=== PATIENT | female | born 1950 | race Caucasian/White ===

== ENCOUNTER 2016-11-20 16:08 | Emergency (ER) | payer MEDICARE ==
[2016-11-20 16:11] VITALS: BP 126/69; PULSE 92; RESP 18; TEMP 97.5
[2016-11-20] MEDS ORDERED: MORPHINE SULFATE 10 MG/ML SYRINGE IM STA (16:34)
--- NOTE | 2016-11-20 17:13 | XR ---
EXAMINATION TYPE: XR forearm LT DATE OF EXAM: 11/20/2016 COMPARISON: NONE HISTORY: Pain and injury TECHNIQUE: 2 views FINDINGS: There is focal soft tissue swelling on the lateral aspect of the midforearm. Radius and uln a appear intact. I see no fracture. IMPRESSION: Soft tissue swelling. No fracture seen.
--- NOTE | 2016-11-20 17:14 | XR ---
EXAMINATION TYPE: XR knee complete LT DATE OF EXAM: 11/20/2016 COMPARISON: NONE HISTORY: Pain and injury TECHNIQUE: 3 views FINDINGS: I see no fracture nor dislocation. Joint spaces are normal. There is no sign of a joint eff usion. IMPRESSION: Negative left knee exam.
--- NOTE | 2016-11-20 17:46 | ED ---
Fall HPI - General Chief Complaint: Fall Stated Complaint: Fall/ Arm/leg Injury Time Seen by Provider: 11/20/16 17:09 Source: patient Mode of arrival: ambulatory - History of Present Illness Initial Comments: Patient is a 66-year-old right-handed female with medical history significant for arthritis presenting to the emergency department with complaints of left forearm pain and left knee pain after she fell on cement while tripping over a step outside. Onset of injury less than hour prior to arrival. Patient is currently complaining of left forearm pain described as throbbing, rated 10 out of 10, exacerbated with movement, somewhat relieved by rest. Patient denies recent illness, nausea, vomiting, shortness of breath, chest pain, or abdominal pain. Patient denies any numbness or tingling. Patient denies any previous surgery or injury to left upper extremity or left lower extremity. No treatment prior to arrival. Fall Witnessed: no Place Fall Occurred: home Loss of Consciousness: none Prolonged Down Time?: no Symptoms Prior to Fall: none Context: tripped/slipped Associated Symptoms: denies - Related Data Home Medications Medication Instructions Recorded Confirmed Flovent(Dose Unknown) 1 puff INHALATION DAILY 01/09/14 01/15/14 Levothyroxine Sodium [Synthroid] 25 mcg PO DAILY 01/09/14 01/15/14 Proair(Dose Unknown) 1 puff INHALATION DIRECTED 01/09/14 01/15/14 Simvastatin [Zocor] 40 mg PO HS 01/09/14 01/15/14 Previous Rx's Medication Instructions Recorded HYDROcodone/APAP 10-325MG [[place] 1 - 2 each PO Q4H PRN #60 tab 01/20/14 10-325] Allergies Allergy/AdvReac Type Severity Reaction Status Date / Time cephalexin monohydrate Allergy Rash/Hives Verified 11/20/16 16:11 [From Keflex] Sulfa (Sulfonamide Allergy Rash/Hives Verified 11/20/16 16:11 Antibiotics) nickel [Nickel] AdvReac Rash/Hives Verified 11/20/16 16:11 metal AdvReac Rash/Hives Uncoded 11/20/16 16:11 Review of Systems ROS Statement: Those systems with pertinent positive or pertinent negative responses have been documented in the HPI. ROS Other: All systems not noted in ROS Statement are negative. Past Medical History Past Medical History: COPD, Hyperlipidemia, Thyroid Disorder Additional Past Medical History / Comment(s): arthritis, post menopause, hx anemia History of Any Multi-Drug Resistant Organisms: None Reported Past Surgical History: Back Surgery, Cholecystectomy, Orthopedic Surgery Additional Past Surgical History / Comment(s): neck surgery Past Anesthesia/Blood Transfusion Reactions: No Reported Reaction Past Psychological History: No Psychological Hx Reported Smoking Status: Current every day smoker Past Alcohol Use History: None Reported Past Drug Use History: None Reported - Past Family History Mother Family Medical History: Cancer General Exam Limitations: no limitations General appearance: alert, anxious Head exam: Present: atraumatic, normocephalic, normal inspection Eye exam: Present: normal appearance, PERRL. Absent: scleral icterus, conjunctival injection, periorbital swelling, periorbital tenderness ENT exam: Present: normal exam, normal oropharynx, mucous membranes moist, normal external ear exam Neck exam: Present: normal inspection, full ROM. Absent: tenderness, meningismus, lymphadenopathy Respiratory exam: Present: normal lung sounds bilaterally. Absent: respiratory distress, wheezes, rales, rhonchi Cardiovascular Exam: Present: regular rate, normal rhythm, normal heart sounds. Absent: systolic murmur GI/Abdominal exam: Present: soft, normal bowel sounds. Absent: distended, tenderness, guarding, rebound, rigid Left Shoulder Exam: Present: normal inspection, full ROM. Absent: tenderness, swelling Upper Arm exam: Present: normal inspection, full ROM. Absent: tenderness, swelling Elbow exam: Present: normal inspection, full ROM. Absent: tenderness, swelling Forearm Wrist exam: Present: full ROM, tenderness (Tenderness, swelling, and ecchymosis to the dorsal, lateral aspect of left forearm.), swelling, ecchymosis Hand Wrist exam: Present: normal inspection, full ROM. Absent: tenderness, swelling Neuro motor exam: Present: wrist extension intact, thumb opposition intact, thumb IP flexion intact, thumb adduction intact, fingers 2-5 abduction intact Neurosensory exam: Present: 2-point discrimination, radial nerve intact, ulnar nerve intact, median nerve intact Vascular: Present: Pallo, normal capillary refill, radial pulse, brachial pulse , ulnar pulse. Absent: vascular compromise Back exam: Present: normal inspection. Absent: tenderness, vertebral tenderness Neurological exam: Present: alert, oriented X3, normal gait, other (No focal deficits noted.) Psychiatric exam: Present: anxious Skin exam: Present: warm, dry, intact Expanded Type of lesion: Present: abrasion (Abrasion to lateral aspect of left knee) Course Vital Signs 11/20/16 16:09 Temperature 97.5 F L Pulse Rate 92 Respiratory 18 Rate Blood Pressure 126/69 O2 Sat by Pulse 98 Oximetry Medical Decision Making - Medical Decision Making Contusion to left forearm and abrasion to left knee status post fall. Imaging without evidence of dislocation or fracture. Patient instructed to follow-up with primary care physician and [facility] if pain left forearm persist. Patient instructed to return to the emergency department with any new or worsening symptoms. She agrees to treatment plan. Discharge instructions and return parameters reviewed. - Radiology Data Radiology results: report reviewed Left knee x-ray: No fracture or dislocation. Joint spaces are normal. No sign of a joint effusion. (As read by radiologist.) Left forearm x-ray: Focal soft tissue swelling on the lateral aspect of the midforearm. Radius and ulna appear intact. No fracture. (As read by radiologist.) Disposition Clinical Impression: Contusion of left lower arm, Abrasion of left knee Disposition: HOME SELF-CARE Condition: Good Instructions: Contusion in Adults (ED), Abrasion (ED) Additional Instructions: Please continue home medications for pain management. May apply ice to left forearm 4 times a day for 15-20 minutes over the next 1-2 days to decrease swelling. Continue bacitracin or Neosporin twice daily to left knee abrasion. Please follow-up with primary care provider early next week. If pain persist in left forearm, follow-up with [facility] for further treatment. Please return to the emergency department with any new or worsening symptoms such as increased swelling, numbness or tingling, hand gets cold, increased pain. Referrals: Naga Chandler MD [Primary Care Provider] - 1-2 days Lucas Dalal PAC [PHYSICIAN CYBER SYSTEMS ENGINEER] - 1-2 days Time of Disposition: 17:45
== END 2016-11-20 18:05 | disposition home or self-care (01) ==
LOC: EC 16:08
DX: S50.12XA Contusion of left forearm, initial encounter (principal); S80.212A Abrasion, left knee, initial encounter; J44.9 Chronic obstructive pulmonary disease, unspecified; E07.9 Disorder of thyroid, unspecified; E78.5 Hyperlipidemia, unspecified; F17.200 Nicotine dependence, unspecified, uncomplicated; Z88.1 Allergy status to other antibiotic agents; Z88.2 Allergy status to sulfonamides; Z91.048 Other nonmedicinal substance allergy status; Z79.899 Other long term (current) drug therapy; W01.198A Fall on same level from slipping, tripping and stumbling with subsequent striking against other object, initial encounter; Y92.009 Unspecified place in unspecified non-institutional (private) residence as the place of occurrence of the external cause
CPT/HCPCS: 99283; 96372; 73090; 73562; J2270

== ENCOUNTER → 2017-03-14 | Outpatient (CLI) | payer MEDICARE ==
--- NOTE | 2017-03-16 08:26 | MM ---
Reason for exam: screening (asymptomatic). Last mammogram was performed 1 year and 1 month ago. History: Patient is postmenopausal. Physical Findings: A clinical breast exam by your physician is recommended on an annual basis and results should be correlated with mammographic findings. MG 3D Screening Mammo W/Cad Bilateral CC and MLO view(s) were taken. Prior study comparison: February 16, 2016, bilateral MG screening mammo w CAD. September 19, 2014, bilateral MG screening mammo w CAD. There are scattered fibroglandular densities. No suspicious abnormality. No significant changes when compared with prior studies. ASSESSMENT: Negative, BI-RAD 1 RECOMMENDATION: Routine screening mammogram of both breasts in 1 year.
== END ==
LOC: RADMAMWWP 14:29
PROVIDERS: ATTEND Family Medicine
DX: Z12.31 Encounter for screening mammogram for malignant neoplasm of breast (principal)
CPT/HCPCS: 77063; G0202

== ENCOUNTER → 2021-11-29 | Outpatient (CLI) | payer MEDICARE ==
--- NOTE | 2021-11-29 21:14 | CT ---
EXAMINATION TYPE: CT lumbar spine wo con DATE OF EXAM: 11/29/2021 5:29 PM COMPARISON: None available HISTORY: DDD lumbar spine. Hx of spinal sx. CT DLP: 564.30 mGycm Automated exposure control for dose reduction was used. Technique: Unenhanced CT of the lumbar spine was performed. Bone and soft tissue window settings are submitted as well as coronal and sagittal reconstructions. FINDINGS: Diffuse osteopenia. Anterior wedging of T12 vertebral body with upper endplate depression, likely rel ated to osteopenia and chronic, please correlate clinically. No other definite vertebral body collaps e. Previous transpedicular fixation of L4 and L5 using 2 rods and 4 screws. No evidence of prosthesis break or displacement. Mild retrolisthesis of L2 over L3. Degenerative changes of the lumbar spine with multilevel opposing endplate osteophytosis. Degenerated L2-3, L3-4 and L4-5 disc. Suspected L4-5 disc prosthesis.. Multil evel facet osteoarthropathy is noted. L1-L2: Bilateral foraminal disc protrusions, causing no significant central spinal canal stenosis or significant neuroforaminal stenosis. L2-L3: Diffuse posterior disc bulge more inclined to the right side, associated with mild retrolisthe sis and mild ligamentum flavum hypertrophy, causing moderate central spinal canal stenosis without si gnificant neuroforaminal stenosis. L3-L4: Degenerated disc with vacuum phenomenon, diffuse posterior disc bulge and ligamentum flavum hy pertrophy, causing moderate to severe central spinal canal stenosis, moderate right and severe left n euroforaminal stenosis. L4-L5: Operative level with partial fusion and artifacts at the operative bed, with no significant ce ntral spinal canal stenosis or significant neuroforaminal stenosis. L5-S1: Mild diffuse posterior disc bulge associated with bilateral facet osteoarthropathy, causing no significant central spinal canal stenosis or significant neuroforaminal stenosis. Changes of the left femoral head avascular necrosis. Arterial atherosclerotic calcifications. Previou s cholecystectomy. Fatty infiltration of the lower back muscles. No paraspinal lesion. IMPRESSION: Postoperative changes and degenerative changes of the lumbar spine as detailed above. Anterior wedgin g of T12 vertebral body, likely chronic. Other findings as described above. Further MRI assessment can be considered if clinically required.
== END | disposition home or self-care (01) ==
LOC: RADCTMAIN 17:08
PROVIDERS: ATTEND Family Medicine
DX: M51.36 Other intervertebral disc degeneration, lumbar region (principal)
CPT/HCPCS: 72131

== ENCOUNTER → 2022-01-12 | Outpatient (CLI) | payer MEDICARE ==
--- NOTE | 2022-01-12 20:35 | CTL ---
EXAMINATION TYPE: CT Low Dose Lung DATE OF EXAM ORDERED: 01/12/2022 HISTORY: Lung cancer screening CT DLP: 59.[address] CTDI: 1.70 mGy Automated exposure control for dose reduction was used. SCREENING VISIT: Initial screening visit COMPARISON: 11/29/2021. TECHNIQUE: Low dose computed tomography scan was performed through the chest at 1 mm thick sections a nd reconstructed images in multiple planes at 1 mm and [address] DIAGNOSTIC QUALITY: Satisfactory FINDINGS: LUNG NODULES: None. LUNGS: COPD: Severity: None Fibrosis: Severity: None Lymph nodes: None Other findings: Accessory fissure in the right upper lobe. RIGHT PLEURAL SPACE: Effusion: None Calcification: None Thickening: None Pneumothorax: None LEFT PLEURAL SPACE: Effusion: None Calcification: None Thickening: None Pneumothorax: None HEART: Heart Size: Normal Coronary Calcification: Mild Pericardial Effusion: None OTHER FINDINGS: Upper abdomen: None Bony thorax: Mild multilevel disc degeneration changes, with T12 compression deformity with at least 25-50% height loss and 1 to 2 mm retropulsion. Supraclavicular region: None Other: None IMPRESSION: 1. No pulmonary nodules identified. 2. Mild coronary artery atherosclerosis. 3. T12 compression deformity with 25-50% height loss and 1-2/mm retropulsion. Similar to 11/29/2021. CT LUNG RAD AND CT CHEST RECOMMENDATION: Lung-Rad 1 Negative: Continue annual screening with LDCT in 12 months. S Modifier (other clinically significant findings): None
== END | disposition home or self-care (01) ==
LOC: RADCTMAIN 16:42
PROVIDERS: ATTEND Family Medicine
DX: Z12.2 Encounter for screening for malignant neoplasm of respiratory organs (principal); Z87.891 Personal history of nicotine dependence; I25.10 Atherosclerotic heart disease of native coronary artery without angina pectoris
CPT/HCPCS: 71271

== ENCOUNTER → 2022-02-16 | Outpatient (CLI) | payer MEDICARE ==
--- NOTE | 2022-02-18 07:21 | MR ---
EXAMINATION TYPE: MR pelvis wo con DATE OF EXAM: 02/16/2022 COMPARISON: None HISTORY: Left hip pain The planar multi echo imaging of the pelvis without contrast. There is 2 cm patchy area of decreased signal on the T1 images in the superior left femoral head. The re is a smaller 1 cm patch of decreased signal in the medial superior right femoral head. The pelvic ring is intact. Sacroiliac joints are intact. Bladder distends smoothly. No evidence of a pelvic mass . 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 This is larger on th e left side involvement of the articular surface.
== END | disposition home or self-care (01) ==
LOC: RADMRIMAIN 13:01
PROVIDERS: ATTEND Orthopaedic Surgery
DX: M87.852 Other osteonecrosis, left femur (principal)
CPT/HCPCS: 72195

== ENCOUNTER → 2022-03-28 | Outpatient (CLI) | payer MEDICARE ==
--- NOTE | 2022-03-28 09:36 | BD ---
EXAMINATION TYPE: Axial Bone Density DATE OF EXAM: 03/28/2022 COMPARISON: NONE CLINICAL HISTORY: 71 years year old Female. ICD-10 CODE: Z78.0 ASYMPTOMATIC MENOPAUSAL STATE Height: 61.5IN Weight: 118 FRAX RISK QUESTIONS: Glucocorticoids (More than 3mos): YES (Ex: prednisone, prednisolone, methylprednisolone, dexamethasone, and hydrocortisone). History of Fracture in Adulthood: YES Secondary Osteoporosis: Current Tobacco Use: YES RISK FACTORS HISTORY OF: Surgery to Spine: LUMBAR FUSION When: 2013 Active: YES Postmenopausal woman: YES MEDICATIONS: Prednisone or other steroids: ALBUTEROL How Lon-5 YEARS Additional Medications: CHOLESTEROL MED, VITAMIN D Additional History: HAND FRACTURE EXAM MEASUREMENTS: Bone mineral density about the R hip (g/cm2): 0.764 Bone mineral density about the L hip (g/cm2): 0.772 T Score values are as follows: -----R Neck: -2.6 -----L Neck: -2.5 -----R Total: -1.9 -----L Total: -1.9 Bone mineral density has: Decreased -3.6% since study of: 02-16-16 FRAX%s: The graph provided illustrates a 24.9% chance for a major osteoporotic fx and a 10.9% chance for the hips probability for fx in 10 years time. IMPRESSION: Osteoporosis (T Score less than -2.5). There is increased fracture risk and therapy is usually indicated based on age. Re-Screen 1-2 years. NOTE: T-SCORE=SD OF THE YOUNG ADULT MEAN.
== END | disposition home or self-care (01) ==
LOC: LABPAT 08:54
PROVIDERS: ATTEND Orthopaedic Surgery
DX: Z01.812 Encounter for preprocedural laboratory examination (principal); M87.052 Idiopathic aseptic necrosis of left femur; Z22.322 Carrier or suspected carrier of Methicillin resistant Staphylococcus aureus; Z78.0 Asymptomatic menopausal state
CPT/HCPCS: 77080; 87070

== ENCOUNTER → 2022-03-28 | Outpatient (CLI) | payer MEDICARE | END | disposition home or self-care (01) | LOC: RADBDWWP 08:51 | PROVIDERS: ATTEND Family Medicine | DX: Z53.9 Procedure and treatment not carried out, unspecified reason (principal) ==

== ENCOUNTER 2022-04-05 06:17 | Observation (INO) | payer MEDICARE ==
[2022-04-04 08:16] VITALS: BMI 21.9
--- NOTE | 2022-04-04 08:56 | P.HPOR ---
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 She has anterior/groin pain worse with weightbearing activities. She's been limping. She has night symptoms. She's tried pain medications without much relief. Review of Systems As per HPI Past Medical History Past Medical History: COPD, Hyperlipidemia, Thyroid Disorder Additional Past Medical History / Comment(s): arthritis,[place]-uses hearing aides History of Any Multi-Drug Resistant Organisms: None Reported Past Surgical History: Back Surgery, Cholecystectomy, Orthopedic Surgery Additional Past Surgical History / Comment(s): neck surgery,lumbar back surgery, lumbar fusion Past Anesthesia/Blood Transfusion Reactions: No Reported Reaction Additional Past Anesthesia/Blood Transfusion Reaction / Comment(s): no hx blood transfusion Smoking Status: Current every day smoker - Past Family History Mother Family Medical History: Cancer Additional Family Medical History / Comment(s): leukemia Medications and Allergies Home Medications Medication Instructions Recorded Confirmed Type HYDROcodone/APAP 10-325MG [[place] 1 - 2 each PO Q4H PRN #60 tab 01/20/14 04/04/22 Rx 10-325] Albuterol Inhaler [Ventolin Hfa 1 - 2 puff INHALATION Q6H PRN 04/04/22 04/04/22 History Inhaler] Albuterol Nebulized (Conc) 2.5 mg INHALATION Q6H PRN 04/04/22 04/04/22 History [Ventolin Nebulized (Conc)] Budesonide/Formoterol Fumarate 2 puff INHALATION BID 04/04/22 04/04/22 History [Symbicort 160-4.5 Mcg Inhaler] diphenhydrAMINE [Benadryl] 25 - 50 mg PO QID PRN 04/04/22 04/04/22 History Allergies Allergy/AdvReac Type Severity Reaction Status Date / Time cephalexin monohydrate Allergy Rash/Hives Verified 04/04/22 08:04 [From Keflex] Sulfa (Sulfonamide Allergy Rash/Hives Verified 04/04/22 08:04 Antibiotics) nickel [Nickel] AdvReac Rash/Hives Verified 04/04/22 08:04 metal AdvReac Rash/Hives Uncoded 04/04/22 08:04 Physical Examination - Hip left Gait: antalgic Tenderness with palpation: anterior Pain with motion: internal rotation and hip flexion ROM: flexion: 70 degrees ROM: internal rotation: 10 degrees ROM: external rotation: 50 degrees Strength: flexion: 5/5 Strength: abduction: 5/5 Tests: impingement tests: positive Results The patient is a well-developed well-nourished female proximal a 5 foot 2, 120 pounds of mesomorphic habits. HEENT exam is nonfocal. Neck is supple. She has limited lumbar spine motion. Her distal neurovascular appears intact in the left lower extremity. She has no significant clinical leg length discrepancy. - Diagnostic results Hip x-ray: image reviewed (Left hip 2 views shows a central lytic area in the femoral head with medial head collapse.) Hip MRI: image reviewed (Left hip MRI shows evidence of stage III avascular necrosis of the left hip.) Assessment and Plan Assessment: Left hip avascular necrosis History of COPD History of lumbar fusion Plan: I talked to the patient length regarding her condition along with treatment options. This point she is quite limited because of pain that's been progressively worsening. After thorough discussion shaft proceed with surgery. We'll plan to proceed with left total hip arthroplasty. We will likely proceed with a lateral approach with her history of lumbar fusion. Time with Patient: Less than 30
[~2022-04-05 06:17] MED LIST: ACETAMINOPHEN TAB 500 MG TAB PO PRN; LIDOCAINE 1% (10MG/ML) FOR IV START INTRADERMA PRN; MELOXICAM 7.5 MG TAB PO PRN; ONDANSETRON 4 MG/2 ML VIAL IVP ONE; TRANEXAMIC ACID IN NACL,ISO-OS 1,000 MG in SALINE 1 100ML.BAG IVPB PRN
[2022-04-05] MEDS: LACTATED RINGERS 1,000 ML IV SCH (06:45)
[2022-04-05] MEDS ORDERED: HYDROmorphone 0.5 MG/0.5 ML SYRINGE IVP PRN ×2 (07:00→09:30)
[2022-04-05] MEDS ORDERED: MIDAZOLAM 2 MG/2 ML VIAL IVP ONE (07:28)
[2022-04-05] MEDS ORDERED: fentaNYL (PF) 50 MCG/ML 2 ML AMP IVP ONE (07:28)
[2022-04-05] MEDS ORDERED: CLINDAMYCIN 600 MG in DEXTROSE 5% IN WATER 50 ML IVPB STA ×2 (07:46)
[2022-04-05] MEDS ORDERED: PHENYLEPHRINE-0.9% NACL SYG 1,000 MCG/10 ML SYRINGE ONE (07:51)
[2022-04-05] MEDS ORDERED: ePHEDrine 50 MG/ML 1 ML VIAL ONE (07:51)
[2022-04-05] MEDS ORDERED: PROPOFOL 10 MG/ML 20 ML VIAL IV ONE (07:51)
[2022-04-05] MEDS ORDERED: GLYCOPYRROLATE 0.2 MG/ML 2 ML VIAL ONE (07:51)
[2022-04-05] MEDS ORDERED: HYDROmorphone (PF) 1 MG/ML ONE (07:51)
[2022-04-05] MEDS ORDERED: SODIUM CHLORIDE 0.9% (PF) 10 ML VIAL ONE (07:51)
[2022-04-05] MEDS ORDERED: TRANEXAMIC ACID IN NACL,ISO-OS 1,000 MG/100 ML BAG ONE (07:51)
[2022-04-05] MEDS ORDERED: LIDOCAINE 2% INJ 20 MG/ML (2 ML VIAL) ONE (07:51)
[2022-04-05] MEDS ORDERED: ROPIVACAINE 5 MG/ML 30 ML VIAL ONE (07:51)
[2022-04-05] MEDS ORDERED: MIDAZOLAM 2 MG/2 ML VIAL ONE (07:51)
[2022-04-05] MEDS ORDERED: NEOSTIGMINE 1 MG/ML 10 ML VIAL ONE (07:51)
[2022-04-05] MEDS ORDERED: ROCURONIUM 10 MG/ML (5 ML VIAL) IV ONE (07:51)
[2022-04-05] MEDS ORDERED: fentaNYL (PF) 50 MCG/ML 2 ML AMP ONE (07:51)
[2022-04-05] MEDS ORDERED: SUCCINYLCHOLINE CHLORIDE 200 MG/10 ML VIAL IV ONE (07:51)
--- NOTE | 2022-04-05 08:16 | P.ANPRN ---
Procedure Note - Anesthesia - Nerve Block Performed Left Erector Spinae Time Out Performed: Yes (:) Date of Procedure: 04/05/22 Procedure Start Time: Procedure Stop Time: : Location of Patient: PreOp Indication: Acute Post-Operative Pain, Requested by Surgeon (Dr Mendieta) Sedation Type: Sedate with meaningful contact maintained Preparation: Sterile Prep Position: Sitting Catheter: None Needle Types: Pajunk Needle Gauge: 21 Ultrasound used to visualize needle placement: Yes Ultrasound used to observe medication spread: Yes Injectate: 0.5% Ropivacaine (see comment for volume) (15cc +10cc PF Normal saline) Blood Aspirated: No Pain Paresthesia on Injection Noted: No Resistance on Injection: Normal Image Stored and Saved: Yes Events: Uneventful and Well Tolerated
[2022-04-05] MEDS ORDERED: CLINDAMYCIN 600 MG in SODIUM CHLORIDE 0.9% 1,000 ML IRRIGATION ONE (08:27)
[2022-04-05] MEDS ORDERED: HYDROcodone/APAP 5-325MG 1 EACH TAB PO PRN (09:30)
[2022-04-05] MEDS ORDERED: NALOXONE 0.4 MG/ML 1 ML VIAL IV PRN (09:30)
--- NOTE | 2022-04-05 09:48 | P.OP ---
Date of Procedure: 04/05/22 Preoperative Diagnosis: Stage 3/4 avascular necrosis left hip Postoperative Diagnosis: Same Procedure(s) Performed: Left total hip arthroplastypress-fitlateral approach Implants: Depuy [place] size [id number] collared, press-fit femoral stem, 50 mm [place] acetabular shell, neutral polyethylene liner, 32+1.5 ceramic femoral head. Anesthesia: GETA Surgeon: Godfrey Mendieta Telephone Solicitor Supervisor #1: Guillermo Vanegas Estimated Blood Loss (ml): 100 Pathology: other (Femoral head) Condition: stable Disposition: PACU Indications for Procedure: The patient is a 71-year-old female who presents with progressive left hip pain secondary to avascular necrosis despite attempted conservative measures. A discussion of the risks and benefits of operative intervention. The patient opted to proceed with surgery. Operative risks to include infection, dallin rovascular injury, development of blood clots, fracture, leg length to scrub to, instability, possible component loosening/failure and need for subsequent procedures was discussed. Informed consent was obtained. Operative Findings: As below Description of Procedure: The patient was brought to the operating room, and after induction of spinal anesthesia was placed in a lateral decubitus position. The bony prominences were appropriately padded. The pelvis was stable perpendicular to the floor with a pegboard. The left lower extremity was prepped and draped in normal fashion. A 12 cm incision was then made centered over the greater trochanter extending superiorly to level the ASIS and distally in line with the femoral shaft. The skin and subcutaneous tissues were divided sharply. Electrocautery was used for hemostasis. The fascia sharmila and gluteus shruthi fascia was split in line with the skin incision. The muscle fibers were bluntly dissected proximally. A self-retaining retractor was placed. The anterior and posterior margins of the gluteus medius muscles identified and the anterior one half was detached from the greater trochanter with electrocautery. The gluteus minimus tendon was identified and detached in a similar fashion. A wide capsulotomy was performed. The neck cut was then made with a sagittal saw at a 45 the shaft. The head was then extracted with a corkscrew. Attention was then paid towards preparing the acetabulum. Anterior and posterior retractors were placed. The remaining capsular labral tissues debrided sharply clearly defining the acetabular margins. I began reaming with a 41 mm reamer taking care to initially medialize, then reaming at 45 of abduction and 20 of anteversion. Sequential reaming is performed up to 49 mm. This was down to bleeding bony surface. A trial 50 mm acetabular shell was inserted at 45 of abduction and 20 of anteversion. This was fully seated. There was good rim fit and stability. A neutral polyethylene liner was then impacted. Care taken to avoid any soft tissue interposition. Attention was then paid towards preparing the proximal femur. A box chisel was used to open the metaphyseal region. A canal finder was used to find the femoral canal. Sequential broaching was performed up to a size 10. This is placed in 15 of anteversion with the leg perpendicular floor judging off the trans-epicondylar axis. There is good rotational stability. A calcar mill was used to fashion the medial calcar. A trial 125 neck along with a 32 mm + 1.5 trial head was placed. The hip was gently reduced. It was taken through range of motion. I felt to be stable in flexion and extension with internal and external rotation. I felt there was adequate catholic of soft tissue tension. The hip was gently dislocated. The trial components removed. Pulsatile lavage was utilized. The final size 10 125 collared femoral stem was inserted again with the leg perpendicular to the floor in 15 of anteversion. Again there was good rotational stability. A 32 mm + 1.5 ceramic femoral head was gently impacted. The hip was gently reduced. Again it was taken through motion and felt to be stable in flexion and extension with internal and external rotation. Pulsatile lavage was again utilized. With the leg in abduction the gluteus minimus and medius tendons reattached to the greater trochanter with #2 Ethibond suture. There was minimal drainage therefore a deep drain was not placed. The fascia sharmila and gluteus shruthi fascia was closed with #2 Ethibond suture. The subcutaneous tissues were reapproximated interrupted 2-0 Vicryl sutures. The skin was reapproximated with 3-0 subcuticular strata fix suture. Skin tape and adhesive was applied. A sterile dressing was applied. The patient was awoken from sedation and transferred to recovery room in good condition. Blood loss was estimated 100 mL. No complications were incurred. Sponge and needle counts were correct in the case. Guillermo RUBIO assisted during the major composes case to include exposure, implantation, and closure.
[2022-04-05] MEDS ORDERED: diphenhydrAMINE 50 MG/ML 1 ML VIAL IVP ONE ×2 (10:05)
--- NOTE | 2022-04-05 10:17 | XR ---
EXAMINATION TYPE: XR Hip Limited LT DATE OF EXAM: 04/05/2022 10:08 AM INDICATION: Patient age:Female; 71 years old; Reason for study: Status post hip surgery, assess surgical alignment; [facility]. COMPARISON: Hip radiograph 01/27/2022. TECHNIQUE: The left hip was examined in the frontal projection. FINDINGS: Post surgical changes from total left hip arthroplasty. Hardware appears intact with approp riate alignment. There is associated soft tissue gas and edema. No acute fracture or dislocation. IMPRESSION: Postsurgical changes from total hip arthroplasty. Hardware appears intact with appropriate alignment.
[2022-04-05] MEDS: MEPERIDINE 50 MG/ML SYRINGE IVP ONE ×2 (10:55→12:23)
[2022-04-05] MEDS ORDERED: MEPERIDINE 50 MG/ML SYRINGE IVP ONE (11:01)
[2022-04-05] MEDS ORDERED: LACTATED RINGERS 1,000 ML IV ONE (12:26)
[2022-04-05] MEDS: HYDROmorphone 0.5 MG/0.5 ML SYRINGE IVP PRN ×2 (15:09→18:13)
[2022-04-05] MEDS: hydrOXYzine pamoate 25 MG CAP PO PRN (16:35)
[2022-04-05] MEDS ORDERED: SENNOSIDES-DOCUSATE SODIUM 1 EACH TAB PO SCH (21:00)
[2022-04-05] MEDS: HYDROcodone/APAP 10-325MG 1 EACH TAB PO PRN (21:29)
[2022-04-06] MEDS: HYDROmorphone 0.5 MG/0.5 ML SYRINGE IVP PRN (01:36)
[2022-04-06] MEDS: HYDROcodone/APAP 10-325MG 1 EACH TAB PO PRN ×2 (05:01→14:26)
[2022-04-06] MEDS: LACTATED RINGERS 1,000 ML IV SCH (06:21)
[2022-04-06 07:19] VITALS: BP 110/67; PULSE 90; RESP 17; TEMP 98.7
[2022-04-06] MEDS: hydrOXYzine pamoate 25 MG CAP PO PRN (08:32)
[2022-04-06 08:58] LABS: Basophils # (A) 0.02 X 10*3/uL (0.00-0.10); Basophils % (A) 0.3 %; Eosinophils # (A) 0.03 X 10*3/uL (0.04-0.35); Eosinophils % (A) 0.4 %; HCT 29.5 % (37.2-46.3); HGB 9.5 g/dL (12.0-15.0); Immature Grans, Automated 0.4 %; Lymphocytes # (A) 1.49 X 10*3/uL (0.90-5.00); Lymphocytes % (A) 20.6 %; MCH 32.8 pg (27.0-32.0); MCHC 32.2 g/dL (32.0-37.0); MCV 101.7 fL (80.0-97.0); Mean Platelet Volume 9.3 fL (9.5-12.2); Monocytes # (A) 0.61 X 10*3/uL (0.20-1.00); Monocytes % (A) 8.4 %; NRBC Per 100 WBC 0 /100 WBCS (0.0-0.0); Neutrophils # (A) 5.07 X 10*3/uL (1.80-7.70); Neutrophils % (A) 69.9 %; Platelet Count 329 X 10*3/uL (140-440); RDW 15.6 % (11.5-14.5); WBC 7.25 X 10*3/uL (4.50-10.00)
[2022-04-06] MEDS ORDERED: RIVAROXABAN 10 MG TAB PO SCH (09:00)
--- NOTE | 2022-04-06 10:43 | P.DS ---
Providers Date of admission: 04/05/2022 Expected date of discharge: 04/06/22 Attending physician: Godfrey Mendieta Consults: 04/05/22 09:33 Consult Physician Routine Consulting Provider: Rock Clemens Reason/Comments: Medical Management s/p LTHA Do you want consulting provider notified?: Yes Primary care physician: Rock Clemens [facility] Course: Date of admission: 04/05/2022 Date of discharge: 04/06/2022 Admission diagnosis: Avascular necrosis left hip Discharge diagnosis: Same Attending physician: Dr. Mendieta Surgical procedures: Left total hip arthroplasty Brief history: Patient is a 71-year-old female with a history of with left hip avascular necrosis. At this point patient has failed conservative treatment measures and has opted to proceed with a elective left total hip arthroplasty. Hospital course: Details of patient's surgery can be found in operative report. Patient tolerated the procedure well and was subsequently transported to orthope dic floor. Patient's orthopeidc and medical care was provided daily. Patient had daily laboratory tests performed for evaluation of overall blood counts. Patient had daily physical therapy to include strengthening range of motion as well as education with walker ambulation. Patient was treated with Xarelto for their postoperative DVT prophylaxis during their inpatient stay. Patient was noted to have a relatively uneventful postoperative course. Patient reported satisfactory pain control with oral pain medications by postoperative day 1. Patient showed satisfactory progress with physical therapy. Patient moved steadily through the program and had no difficulty meeting the goals by postoperative day 1. Given patient's otherwise satisfactory course and having met physical therapy goals, plan is to discharge patient home with health services on postoperative day 1. Discharge condition/disposition: Patient will be discharged home with health services in stable condition. Discharge medications: Instructions are given on resumption of patient's normal daily medications per primary care recommendation, in addition patient will be prescribed Hydro; Colace; Eliquis 2.5 mg BID x 2 weeks. Discharge instructions: 1. Wound care and infection precautions, keep incision dry and covered while showering, no lotions, creams, moisturizers. No soaking, tubs, pools, hottubs. Do not scrub over the incision. 2. Weight-bear as tolerated with walker / cane until follow-up. 3. Ice and elevate when necessary. Do not exceed 20 minutes per hour with ice pack. 4. Utilize compression sleeve until seen at first follow up appointment. 5. Visiting nursing care. 6. Home physical therapy. 7. Pain meds and anticoagulants per prescription. 8. Pain medication has potential to cause constipation. Increase oral fluid and fiber intake. Contact primary care provider if you have not had a bowel movement within 48 hours after discharge 9. No anti-inflammatory medication until discussed at first post operative visit, this including Motrin, Aleve, Mobic, Diclofenac. 10. Follow up in office at 2 weeks postop with Guy Ambrocio PA-C / Guillermo Vanegas PA-C 11. Follow up with your primary care doctor 7-10 days after discharge. 12. Contact [facility] with any questions, . Keep incision clean, dry, intact. While showering, cover mesh tape with Saran wrap. Keep mesh tape on until follow-up appointment in office in 2 weeks Medications: Hydro; Colace; Eliquis 2.5 mg BID x 2 weeks. Assessment: Avascular necrosis left hip Procedures: Left total hip arthroplasty Patient Condition at Discharge: Good Plan - Discharge Summary Discharge Rx Participant: Yes New Discharge Prescriptions: New Docusate [Colace] 100 mg PO DAILY #30 capsule Apixaban [Eliquis] 2.5 mg PO BID #60 tab HYDROcodone/APAP 7.5-325MG [Hydro 7.5] 1 - 2 each PO Q6HR PRN #32 tab PRN Reason: Pain No Action HYDROcodone/APAP 10-325MG [Hydro 10-325] 1 - 2 each PO Q4H PRN #60 tab PRN Reason: Pain diphenhydrAMINE [Benadryl] 25 - 50 mg PO QID PRN PRN Reason: hives Budesonide/Formoterol Fumarate [Symbicort 160-4.5 Mcg Inhaler] 2 puff INHALATION BID Albuterol Nebulized (Conc) [Ventolin Nebulized (Conc)] 2.5 mg INHALATION Q6H PRN PRN Reason: sob Albuterol Inhaler [Ventolin Hfa Inhaler] 1 - 2 puff INHALATION Q6H PRN PRN Reason: sob Discharge Medication List HYDROcodone/APAP 10-325MG [Hydro 10-325] 1 - 2 each PO Q4H PRN #60 tab 01/20/14 [Rx] Albuterol Inhaler [Ventolin Hfa Inhaler] 1 - 2 puff INHALATION Q6H PRN 04/04/22 [History] Albuterol Nebulized (Conc) [Ventolin Nebulized (Conc)] 2.5 mg INHALATION Q6H PRN 04/04/22 [History] Budesonide/Formoterol Fumarate [Symbicort 160-4.5 Mcg Inhaler] 2 puff INHALATION BID 04/04/22 [History] diphenhydrAMINE [Benadryl] 25 - 50 mg PO QID PRN 04/04/22 [History] Apixaban [Eliquis] 2.5 mg PO BID #60 tab 04/06/22 [Rx] Docusate [Colace] 100 mg PO DAILY #30 capsule 04/06/22 [Rx] HYDROcodone/APAP 7.5-325MG [Hydro 7.5] 1 - 2 each PO Q6HR PRN #32 tab 04/06/22 [Rx] Follow up Appointment(s)/Referral(s): Guillermo Vanegas PAC [PHYSICIAN IMMUNOLOGY SPECIALIST] - 04/21/22 11:00 am Rock Clemens MD [Primary Care Provider] - 1 Week Patient Instructions/Handouts: Total Hip Replacement (DC) Activity/Diet/Wound Care/Special Instructions: Discharge instructions: 1. Wound care and infection precautions, keep incision dry and covered while showering, no lotions, creams, moisturizers. No soaking, tubs, pools, hottubs. Do not scrub over the incision. 2. Weight-bear as tolerated with walker / cane until follow-up. 3. Ice and elevate when necessary. Do not exceed 20 minutes per hour with ice pack. 4. Utilize compression sleeve until seen at first follow up appointment. 5. Visiting nursing care. 6. Home physical therapy. 7. Pain meds and anticoagulants per prescription. 8. Pain medication has potential to cause constipation. Increase oral fluid and fiber intake. Contact primary care provider if you have not had a bowel movement within 48 hours after discharge 9. No anti-inflammatory medication until discussed at first post operative visit, this including Motrin, Aleve, Mobic, Diclofenac. 10. Follow up in office at 2 weeks postop with Guy Ambrocio PA-C / Guillermo Vanegas PA-C 11. Follow up with your primary care doctor 7-10 days after discharge. 12. Contact [facility] with any questions, . Keep incision clean, dry, intact. While showering, cover mesh tape with Saran wrap. Keep mesh tape on until follow-up appointment in office in 2 weeks Medications: Hydro; Colace; Eliquis 2.5 mg BID x 2 weeks. Discharge Disposition: HOME WITH HOME HEALTH SERVICES
--- NOTE | 2022-04-06 10:50 | P.PN ---
Subjective Progress Note Date: 04/06/22 Principal diagnosis: Left hip avascular necrosis Patient was seen at bedside this morning sitting up in chair. Patient says she just finished working with physical therapy. Patient says she did walk on the [place] and up-and-down stairs. Patient says she does have moderate amount of pain when bearing weight on the left lower extremity. Patient says she is ready and willing to go home. Patient says she does have a walker for home. Patient says she has urinated since surgery. Patient denies having bowel movement yet, however, patient says she has been passing gas. Patient denies chest pain, fever, shortness breath, nausea, vomiting, change in vision, loss of bowel/bladder control. Objective - Vital Signs Vital signs: Vital Signs Temp 98.7 F 04/06/22 07:17 Pulse 90 04/06/22 07:17 Resp 17 04/06/22 07:17 BP 110/67 04/06/22 07:17 Pulse Ox 93 L 04/06/22 07:17 FiO2 Intake & Output 04/05/22 04/06/22 04/06/22 18:59 06:59 18:59 Intake Total 930 Output Total 100 Balance 830 Weight 53.7 kg Intake: IV 930 Output: Estimated Blood Loss 100 Other: Voiding Method Bedside Commode # Voids 1 3 - Exam Left hip: Incision is clean, dry, and intact. The exofin fusion tape is in good condition. There is minimal soft tissue swelling and ecchymosis surrounding the medial and lateral aspects of the incision. Calf is soft, no tenderness with palpation. Plantar flexion, dorsiflexion, EHL, FHL are intact. Sensory exam to light touch throughout the extremity is intact, dorsal pedis pulses 2+. - Labs CBC & Chem 7: 04/06/22 05:32 Labs: Abnormal Lab Results - Last 24 Hours (Table) 04/06/22 Range/Units 05:32 RBC 2.90 L (4.10-5.20) X 10*6/uL Hgb 9.5 L (12.0-15.0) g/dL Hct 29.5 L (37.2-46.3) % MCV 101.7 H (80.0-97.0) fL MCH 32.8 H (27.0-32.0) pg RDW 15.6 H (11.5-14.5) % MPV 9.3 L (9.5-12.2) fL Eosinophils # 0.03 L (0.04-0.35) X 10*3/uL Assessment and Plan Assessment: 1. Left hip avascular necrosis -Postoperative day 1 status post left total hip arthroplasty Plan: 1. Left hip osteoarthritis - left total hip arthroplasty performed yesterday, 04/05/2022. Patient still bedside this point. Patient did do well with physical therapy this morning. Patient does have a walker for home. Discharge home with health services today. 2. Appreciate medical management 3. Pain management - [place] 4. DVT prophylaxis - Xarelto in hospital. Going home with Eliquis 5. GI prophylaxis - senna in hospital. Going home with Colace 6. PT/OT - weightbearing as tolerated with walker 7. Encourage incentive spirometer use 8. Discharge planning - discharge home today with health services. Time with Patient: Less than 30
== END 2022-04-06 14:45 | disposition home health service (06) ==
LOC: OR 06:17 → 4SSUR 09:47 → OR 04-06 07:57 → 4SSUR 04-06 07:57 → OR 04-06 14:45
PROVIDERS: ADMIT Orthopaedic Surgery; ATTEND Orthopaedic Surgery
DX: M87.052 Idiopathic aseptic necrosis of left femur (principal); G89.18 Other acute postprocedural pain; J44.9 Chronic obstructive pulmonary disease, unspecified; E78.5 Hyperlipidemia, unspecified; E07.9 Disorder of thyroid, unspecified; F17.200 Nicotine dependence, unspecified, uncomplicated; Z90.49 Acquired absence of other specified parts of digestive tract; Z98.1 Arthrodesis status; Z79.51 Long term (current) use of inhaled steroids; Z98.891 History of uterine scar from previous surgery; Z79.899 Other long term (current) drug therapy; Z80.6 Family history of leukemia; Z88.2 Allergy status to sulfonamides; Z88.8 Allergy status to other drugs, medicaments and biological substances
CPT/HCPCS: 27130; 97161; 97535; 97166; 64999; 86900; 86901; 88305; 85025; 86850; 88311; 73501; G0378; C1776; J2250; J0330; J1200; J2710; J2175; J2405; J3010; J1170 ×3; J2795; J2370; J2704; J2001

== ENCOUNTER → 2022-09-26 | Outpatient (CLI) | payer MEDICARE | END | disposition home or self-care (01) | LOC: LABPAT 09:22 | PROVIDERS: ATTEND Orthopaedic Surgery | DX: Z01.812 Encounter for preprocedural laboratory examination (principal); Z22.322 Carrier or suspected carrier of Methicillin resistant Staphylococcus aureus; M47.816 Spondylosis without myelopathy or radiculopathy, lumbar region; M43.16 Spondylolisthesis, lumbar region; M48.04 Spinal stenosis, thoracic region | CPT/HCPCS: 87070 ==

== ENCOUNTER → 2022-09-28 | Outpatient (CLI) | payer MEDICARE ==
[2022-09-28 15:37] LABS: Basophils # (A) 0.04 X 10*3/uL (0.00-0.10); Basophils % (A) 0.5 %; Eosinophils % (A) 1.2 %; HCT 38.2 % (37.2-46.3); HGB 11.9 g/dL (12.0-15.0); Immature Grans, Automated 0.5 %; Lymphocytes # (A) 1.75 X 10*3/uL (0.90-5.00); Lymphocytes % (A) 21.3 %; MCH 32.1 pg (27.0-32.0); MCHC 31.2 g/dL (32.0-37.0); Mean Platelet Volume 9.6 fL (9.5-12.2); Monocytes # (A) 0.56 X 10*3/uL (0.20-1.00); Monocytes % (A) 6.8 %; NRBC Per 100 WBC 0 /100 WBCS (0.0-0.0); Neutrophils # (A) 5.71 X 10*3/uL (1.80-7.70); Neutrophils % (A) 69.7 %; Platelet Count 439 X 10*3/uL (140-440); RBC 3.71 X 10*6/uL (4.10-5.20)
[2022-09-28 19:46] LABS: INR 0.86 (0.90-1.11); Prothrombin Time 9.8 sec (9.9-11.9)
[2022-09-28 21:12] LABS: Anion Gap 10.9 mmol/L (10.00-18.00); BUN/Creat Ratio 10.85 Ratio (12.00-20.00); Blood Urea Nitrogen 5.8 mg/dL (9.0-27.0); Calcium 9.9 mg/dL (8.7-10.3); Carbon Dioxide 27.5 mmol/L (20.0-27.5); Non-African American GFR(CKD) 94.1 (60.0-200.0); Potassium 3.9 mmol/L (3.5-5.5)
== END | disposition home or self-care (01) ==
LOC: LABPAT 11:37
PROVIDERS: ATTEND Orthopaedic Surgery
DX: Z01.812 Encounter for preprocedural laboratory examination (principal)
CPT/HCPCS: 36415; 80048; 85025; 85610

== ENCOUNTER 2022-10-04 05:35 | Inpatient (IN) | payer MEDICARE ==
[2022-09-27 14:09] VITALS: BMI 21.9
[~2022-10-04 05:35] MED LIST changes: +GABAPENTIN 300 MG CAP PO PRN; -LIDOCAINE 1% (10MG/ML) FOR IV START INTRADERMA PRN; -MELOXICAM 7.5 MG TAB PO PRN; -ONDANSETRON 4 MG/2 ML VIAL IVP ONE; +ONDANSETRON 4 MG/2 ML VIAL IVP PRN
[2022-10-04] MEDS ORDERED: DEXAMETHASONE SOD PHOSPHATE 4 MG/ML 1 ML VIAL IV ONE (05:37)
[2022-10-04] MEDS ORDERED: ONDANSETRON 4 MG/2 ML VIAL IVP ONE (05:37)
[2022-10-04] MEDS: LACTATED RINGERS 1,000 ML IV SCH (06:08)
[2022-10-04] MEDS ORDERED: MIDAZOLAM 2 MG/2 ML VIAL IVP ONE (06:30)
--- NOTE | 2022-10-04 06:48 | P.HPOR ---
History of Present Illness H&P Date: 09/26/22 .D:Date: 09/26/22 : 08:58am .T:Title: [facility] Age: 71 year Height: 5'2" Weight: 124 lbs BMI: 22.68 kg/m2 Occupation: Book keeper VAS: 4 CHIEF COMPLAINT: Low back pain DOI: Chronic DOS: n/a Duration of current treatment regiment: Ongoing HISTORY : Xrays No new xrays taken in office Trauma or injury No Work-Related No Pain description dull, aching, burning, sharp increasing . Location posterior diffuse Patient notes that their pain radiates to left lower extremity Activity Modification YES Hand Dominance right TREATMENTS COMPLETED: 6 weeks of PT completed? Month and Year of last PT date? YES Physician directed home exercise completed? Patient has trialed the physician directed home exercise program for without relief of their symptoms. Medications yes List: Lincoln with moderate relief, gabapentin with mild relief, tizanidine with relief, and Biofreeze with mild relief. Alternative interventions Chiropractic: YES Massage therapy: YES R.I.C.E: YES Brace: No Injections No RFA: No SUBJECTIVE: Ms. Woodard presents to the office today for recheck of her low back pain and preoperative appointment. Patient reports no changes in her symptoms since her last visit of 05/27/2022. She Continues to report a sharp towel diffuse lumbar pain that radiates into her right lower extremity, associated without numbness and tingling. Her symptoms continue to be exacerbated with standing, sitting, walking and bending. For her symptoms, patient is taking Lincoln 7.5mg, gabapentin and rizanadine. Otherwise the patient denies any f/c/sob/cp, no bladder or bowel retention/incontinence, no perineal numbness/tingling, and ambulates with a cane. HPI: Ms. Woodard presents to the office on 08/03/2022 for recheck of her low back pain. Since her last office visit patient has had a left hip arthroplasty performed by Dr. Mendieta on 04/05/2022. Patient states that she had thought this procedure would alleviate some of her pain in her lower back, this was without result. Patient reports no changes in her symptoms since her last visit of 05/27/2022. She Continues to report a sharp towel diffuse lumbar pain that radiates into her right lower extremity, associated without numbness and tingling. Her symptoms continue to be exacerbated with standing, sitting, walking and bending. For her symptoms, patient is taking Lincoln 7.5mg and motrin. Otherwise the patient denies any f/c/sob/cp, no bladder or bowel retention/incontinence, no perineal numbness/tingling, and ambulates with a cane. Ms. Woodard presents to the office on 05/27/2022 for recheck of her low back pain. Since her last office visit patient has had a left hip arthroplasty performed by Dr. Mendieta on 04/05/2022. Patient states that she had thought this procedure would alleviate some of her pain in her lower back, this was without result. Patient reports no changes in her symptoms since her last visit of 02/24/2022. She Continues to report a sharp towel diffuse lumbar pain that radiates into her right lower extremity, associated without numbness and tingling. Her symptoms continue to be exacerbated with standing, sitting, walking and bending. For her symptoms, patient is taking Lincoln 7.5mg, gabapentin, and tizanidine. Otherwise the patient denies any f/c/sob/cp, no bladder or bowel retention/incontinence, no perineal numbness/tingling, and ambulates with a cane. Ms. Woodard presents to the office 02/24/22 for a recheck on her low back pain and MRI results. Patient continues to have lumbar pain that radiates into the left lower extremity, associatedwithout numbness and tingling. Patient states she has surgery scheduled o 04/05/[address] Mendieta for Left hip arthroplasty. She states she would like to proceed with the surgery and then re-evaluate her low back pain. Otherwise the patient denies any f/c/sob/cp, no bladder or bowel retention/incontinence, no perineal numbness/tingling, and ambulates independently. Ms. Woodard was last seen on 01/11/22 regarding an evaluation of their chronic low back pain. Patient reports a Sharp dull and diffuse lumbar pain ongoing for many years with no known injury or trauma to indicate an exact onset of their s ymptoms. In addition to their lumbar pain, they do report that it radiates into the left lower extremity, associated without numbness and tingling. Overall the patient has seen a progressive increase in symptoms since their onset. Ms. Woodard symptoms are exacerbated with standing, sitting, walking and bending, due to this they notes that it is increasingly difficult for Ms. Woodard to complete many of their daily tasks. she also has complaint of limited range of motion of the left lower extremity. Patient is having severe sleep disturbances as well due to their ongoing pain and associated symptoms. Regarding treatments, the patient has previously trialed the above listed modalities. Patient denies trialing any other modalities at this time. For their symptoms, the patient has been taking Lincoln, gabapentin, tizanidine, and Biofreeze. Patient does report a L4-L5 decompression and fusion performed by Dr. Vargas done in 2013. Otherwise the patient denies any f/c/sob/cp, no bladder or b owel retention/incontinence, no perineal numbness/tingling, and ambulates independently. The patients' past social, medical, family, surgical history, as well as review of systems, have been reviewed. Please refer to the Neurosurgery History and Physical form that has been scanned in to our electronic medical record system. 14 points review of systems completed and as stated in HPI, all other systems reviewed are negative. Social History: Reviewed, see appropriate section of the chart for details. P3 Family History: Reviewed, see appropriate section of the chart for details. P2 Past Medical History: Reviewed, see appropriate section of the chart for details. P1 Current Medications: Rx: atorvastatin 40 mg tablet Ref: 0 Instructions: take 1 tablet (40 mg) by oral route once daily Rx: gabapentin 300 mg capsule Ref: 0 Instructions: take 1 capsule (300 mg) by oral route 3 times per day Rx: Symbicort Ref: 0 Instructions: BID Rx: tiZANidine 4 mg capsule Ref: 0 Instructions: take 1 capsule (4 mg) by oral route 2 times per day Rx: HYDROcodone 7.5 mg-acetaminophen 325 mg tablet Ref: 0 Instructions: take 1 tablet by oral route every 8 hours as needed for pain P1 PHYSICAL EXAMINATION: General: Awake, alert, appropriate for age, in no acute distress. HEENT: No unusual neck masses around region of lateral neck triangle, thyroid, supraclavicular groove Heart: Regular rate and rhythm, normal S1, S2 and no murmur/gallop. Lungs: Clear to auscultation bilaterally with no use of accessory muscles. Extremities: Skin warm and dry without acute lesions, coloration, temperature, skin intact, no tenderness or erythema Integument: Hairy patches: ABSENT Dorsal skin dimples: ABSENT Cafe au lait spots: ABSENT Surgical incisions: well healed lumbar Palpation: Please see Pain drawing on Intake sheet for further detail. Midline spinal tenderness: No E6 Cervical Tenderness: Y E6 Paralumbar tenderness: Y Parathoracic tenderness: No E6 Buttocks tenderness: No E6 Sacroilliac Tenderness: No POSTURAL and MUSCULO-SKELETAL EVALUATION: Coronal Balance: NEUTRAL Recumbent testing: Patient is able to lay flat on back Sagittal Balance: NEUTRAL Shoulder Profile: LEVEL Pelvic Girdle: LEVEL Neck ROM: UNRESTRICTED Lumbar ROM: RESTRICTED Shoulder ROM: Symmetrical Hip ROM: Limited ROM in Left hip Knee ROM: Symmetrical Hands: Normal appearance, symmetrical Feet: Normal appearance, Symmetrical VASCULAR STATUS : LEFT RIGHT Wrist Pulses INTACT INTACT Pedal Pulses (Dors. pedis & post.tibialis) INTACT INTACT Color NORMAL NORMAL Edema Absent Absent NEUROLOGIC EXAMINATION: Mental Status:Awake and alert, fully oriented, with normal attention, concentration and memory, and fluent, appropriate speech. Cranial Nerves: I: Olfactory not tested. II: Visual acuity normal, no visual field deficit noted with confrontation. III,IV: Normal pupillary reflexes & intact extraocular movements without nystagmus. V,: Intact symmetrical facial sensation. VII: Intact symmetrical facial motor movement VIII: Hearing intact. IX,X: Intact gag, swallow, & normal voice. XI: Sternocleidomastoid, trapezius function intact. XII: Tongue midline with normal movements. L'hermitte's Sign: Negative / absent Spurling'Sign: Absent bilaterally. Cubital percussion test: Absent bilaterally. Dalal-Tinel sign - Carpal region: Absent bilaterally. Straight Leg Raising: Absent bilaterally. Crossed straight leg raise: negative O8 MOTOR EXAM (0-5/5, N/T) UPPER EXTREMITY Shoulder Abduction Biceps Triceps Wrist Extension Hand Intrinsics Ophthalmic Technician Right 5/5 5/5 5/5 5/5 5/5 5/5 Left 5/5 5/5 5/5 5/5 5/5 5/5 LOWER EXTREMITY Hip Flexion Knee Extension Knee Flexion DF PF EHL FHL Right 4/5 4/5 4/5 4/5 4/5 4/5 4/5 Left 4/5 4/5 4/5 4/5 4/5 4/5 4/5 REFLEXES(0-4/2, NT)Upper ExtremityLower Extremity Right 2 2 Left 2 2 Pathological Reflexes RIGHT LEFT Dalal's Absent Absent Clonus Absent Absent Babinski Absent Absent # Indicates mechanical impairment Muscle appearance: Symmetrical, without signs of atrophy or dystrophy. Sensory system (0-4, N/T) Test type RU JOSELIN RL LL Joint-Position 2 2 2 2 Vibration 2 2 2 2 Pain & LT sense 2 2 2 2 Dermatomal Deficit: None None L1-S1 L1-S1 Gait and Functional Evaluation: Ambulatory aids:Cane Romberg's test: Intact bilaterally Toe heel walk / heel-toe walk intact while maintaining satisfactory balance? yes Squatting/straightening w/o assistance to a min of 60 degree knee flexion? No Single leg stance: intact Hand and finger dexterity intact bilaterally? yes Disdiadochokinesis examination negative bilaterally? yes Unsteady Gait RADIOGRAPHIC STUDIES: MRI w/o contrast T/L Spine 01/31/22 at [facility]: This demonstates severe spondylotic changes from T12-S1 with old T12 VCF 50% with 30 deg kyphosis noted. There is severe disc collapse of L1-S1 with central and foraminal stenosis. There is multilevel degenerative spondylolisthesis noted from L2-3, L3-4 and L4-5 all grade I in nature and mobile on F/E and partially reduced on these supine films. There are no acute lesions or fractures noted. There is flattened LL due to the collapse and degenerative scoliotic features. PI is mismatched >10 deg. There are modic endplate change snoted as well. NO lesions. XRay taken on 01/11/22 of Lumbar Spine [facility] Pelvis [facility]: This demonstrates T12 VCF that is 40% PRATIMA with 25 deg kyphosis, There is L2-3 and L3- 4 lateral listhesis due to differential disc collapse causing scoliotic curvature. There is Spondylolisthesis of these lvels as well Grade I anterior. There is Retrolisthesis noted of L2-3 causing b/l foraminal stenois as well as likely central stenosis. There are post surgical changes at L4-5 with decompression and fusion construct in place. There is possible pseudoarthrosis at this level. IMPRESSION: It was my pleasure to have seen and examined Natalie. I reviewed the patient's clinical syndrome, physical findings, and imaging studies during the appointment today. It is my impression that the patient has a diagnosis of. 1. 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 Grade 1 retrolisthesis L2-L3 5. Status post L4-L5 decompression and fusion 6. Right lower extremity radiculopathy 7. lower extremity weakness 8. neurogenic claudication 9. low back pain I outlined the natural course history without intervention and various interventional options. PLAN All options were reviewed today, we decided the best course of action would be: -Health Maintenance: Health maintenance handout given to the patient which covers topics such as nutritional support, supplementation for symptomatic relief as well as for bone health with vitamin D and calcium, smoking cessation, weight loss counselling and importance of daily exercise with examples and references for each. -Advised patient to continue with supplements, health maintenance, and home exercise programs. Patient expressed understanding and will continue with these modalities. - SMOKING CESSATION NEW PATIENT The patient and I have had a chance to discuss their plan to quit smoking. They have smoked 0.5 packs for 30 years and are ready to make a change. We have discussed how this can impact their treatment and their health. We have discussed that smoking in general is associated with increased cardiovascular events, lung issues and cancer. Nicotine specifically has a direct effect on bone healing and can increase their risk of not healing from their surgery by up to 300%. We have discussed different methods for smoking cessation including CBT, medications like Chantix, group therapy and counselling as well as prov iding them with resources to quit in our Health Maintenance program. The patient is excited about this new chapter in their life and has set a quit date of Today . We will reassess the patients' progress at our next scheduled visit and provide them with any additional information or help they may need. Time spent: >10 min I discussed treatment options with the patient, including operative and non- operative options, and they have elected to proceed with the following surgical procedure: lumbar T10- Pelvis revision decompression and fusion The indications, risks, benefits, and alternatives to surgery were discussed with the patient at length. Specifically (but not limited to) the risks of infection, stiffness, recurrence of symptoms, need for revision surgery, local numbness, neurovascular injury, and blood clots were discussed. The patient's questions were answered. The decision to proceed was made. Consent will be obtained for the procedure. -Ambulate daily -Take pain medications and post op medications as needed and as directed -Ice and rest for pain and swelling control. Spine Surgery Risk Review Ms. Woodard is presenting for evaluation of low back pain. It was my pleasure to have seen and examined Ms. Woodard. In our visit today we have had a chance to go over subjective complaints, physical examination findings and treatments including the natural course history without intervention and various interventional options. The patients imaging demonstrates: XRay taken on 01/11/22 of Lumbar Spine [facility]vis [facility]: This demonstrates T12 VCF that is 40% PRATIMA with 25 deg kyphosis, There is L2-3 and L3- 4 lateral listhesis due to differential disc collapse causing scoliotic curvature. There is Spondylolisthesis of these lvels as well Grade I anterior. There is Retrolisthesis noted of L2-3 causing b/l foraminal stenois as well as likely central stenosis. There are post surgicla changes at L4-5 with decompression and fusion construct in place. There is possible pseudoarthrosis at this level. On physical exam, Ms. Woodard demonstrates: She Continues to report a sharp towel diffuse lumbar pain that radiates into her right lower extremity, associated without numbness and tingling. Her symptoms continue to be exacerbated with standing, sitting, walking and bending. MRI 01/31/22 at [facility]: This demonstates severe spondylotic changes from T12-S1 with old T12 VCF 50% with 30 deg kyphosis noted. There is severe disc collapse of L1-S1 with central and foraminal stenosis. There is multilevel degenerative spondylolisthesis noted from L2-3, L3-4 and L4-5 all grade I in nature and mobile on F/E and partially reduced on these supine films. There are no acute lesions or fractures noted. There is flattened LL due to the collapse and degenerative scoliotic features. PI is mismatched >10 deg. There are modic endplate change snoted as well. NO lesions. I have explained to the patient that as their condition progresses it will cause further neurological deficits and eventual paralysis. Based on the patients imaging, physical exam, and the rapid progression and disabling nature of their symptoms, at this time I recommend surgery in the form of a: lumbar T10- Pelvis decompression and fusion. I discussed the risk and benefits of this procedure at length with Ms. Woodard. The patient agreed to considered pursuing the procedure abovementioned. Prior to surgery, she should follow up with her PCP (Cardio, ID, IM etc) for clearance. Questions were invited and answered, and the patient wishes to proceed as outlined below. Currently, I am recommendin. lumbar T10- Pelvis revision decompression and fusion 2.Follow up with PCP for surgical clearance 3.Review of surgical risks and benefits as well as an educational packet on the proposed surgical procedure. Risks: All surgical procedures come with inherent risks, including those related to positioning, anesthesia, intraoperative findings, and postoperative complications. It is important to understand that surgery does not come with any guarantee of a successful outcome as complications and adverse events are always possible. The patient was given a handout in office today discussing the surgical procedure and risks associated with the intervention, both of which were discussed with the patient. These risks include but are not limited to the following: * Experiencing same, different or even worse symptoms in back, neck, arms, or legs compared to before surgery. Requiring further surgery or other forms of treatment presently or at some time in the future at same or other levels of the intended spine surgery. On an extreme but fortunately relatively rare basis severe complication such as blindness, stroke, heart attack, temporary and/or permanent nerve injury, paralysis, coma, or may occur, sometimes without known explanation. Surgical complications may include but are not limited to risk of infection, fluid accumulation in the surgical dissection site, including a seroma or hematoma, that requires additional surgery, wound drainage, bleeding, new numbness or weakness, vision changes/loss, spinal fluid leakage, non-healing and/or infected incision, headaches, difficulty or inability to swallow, hoarseness, hemopneumothorax, pneumothorax, impotence, retrograde ejaculation, vaginal dryness; injury to nerves, spinal cord, blood vessels, lymphatics or other vital organs (i.e., bowel injury, injury to the great vessels); heterotopic bone formation; complications related to the hardware such as screws, rods, cages including misplaced hardware, device failure, instrumentatio n at the wrong spine level, hardware fracture/breakage, or hardware loosening; vertebral failure of the spinal column above or below the newly placed hardware; retained surgical instrumentations or devices and the need for further surgery. * Medical risks of the planned spine surgery include but are not limited to generalized Infections to the whole body or local areas outside of the surgi gloria site (sepsis), heart attack, bleeding, anaphylaxis, meningitis, seizure, epilepsy, hearing loss, burn scott, laceration of the head or other areas of the body, bruising, hypersensitivity of the skin, bladder over distension; allergic reaction; shoulder injury related to positioning; fat, blood and air clots to other areas of the body like heart, lungs, brain; failure of internal organs such as lungs, kidneys, liver and excessive bleeding. If blood transfusions are necessary, note that transfusions may cause intolerance reactions such as anaphylaxis or other complex reactions. Despite best efforts, the results of spine surgery might not heal in terms of bone, soft tissues such as skin, fascia, ligaments, and joints. Additionally, in order to achieve best possible results, spine surgery may be carried out beyond the initially planned levels and involve decompression, fusion including insertion of hardware at levels other than the original intended area of surgical interest change some portions of the procedure in order to ensure the best possible outcomes. With spine surgery and spinal fusion, there are different off label uses of instrumentation (devices, implants and hardware) as well as biological substances (bone morphogenic proteins, demineralized bone matrix) as well as using extra bone from allograft sources (i.e. cadaver bone) or autograft (iliac crest bone, ribs, or the spine itself). The patient has been given information about these practices and their inherent risks and benefits. [facility] is an educational center that serves as a training facility for neurosurgical and orthopedic AIRCRAFT INSTRUMENT TESTER and Nursing students. Physician assistants are medically trained surgical providers who function in the outpatient, inpatient, and operating room setting under the direct supervision of the attending surgeon. [facility] has multiple operating rooms with single and overlapping rooms running daily. They currently function under the required guidelines as produced by the [facility] Finance Committee with regards to the overlapping rooms and will continue to comply with changes to this policy as they occur. The requirements include and are complied with as follows: (1) the critical portions of the overlapping rooms will not occur at the same time, (2) the attending physician will be physically present during the critical portions of the proced ure and immediately available during the entire case, and (3) a back-up attending is designated should the primary attending not be immediately available. The patient has had a chance to review all the listed information, has been given print outs detailing this information, and has had all his/her questions answered to their satisfaction. It was my pleasure to have seen and examined Ms. Woodard. In our visit today we have had a chance to go over my understanding of our patient's current condition, the natural course history without intervention and various interventional options. Questions were invited and answered, and the patient wishes to proceed as outlined above. I have seen and examined the patient for 25 minutes and we have spent more than 50% of the time in repeat and detailed co unseling about the patient's condition, its natural course history with out and as much as can be predicted with surgery and re-review of various surgical treatment options. In conclusion, Ms. Woodard and requested we proceed with the above suggested surgery and are willing to accept risks and limitations of the suggested surgery as nature of the disease process and our best attempts at treatment for the condition. Thank you again for allowing us to be part of your patient's care. Please don't hesitate to contact me if you have any further questions. Attestation: In our visit today Ms. Woodard and I have had a chance to go over my understanding of the patient's current condition, the natural course history wit hout intervention and various interventional options. Questions were invited and answered, and the patient wishes to proceed as outlined above. I will be sure to keep you updated afterMs. Woodard returns here for further follow-up. Thank you again for your referral. Please do not hesitate to contact me if you have any further questions. Signed and authenticated by: [facility] [address] [facility], [address] [address] This message is confidential, intended only for the named recipient(s) and may contain information that is privileged or exempt from disclosure under applicable law. If you are not the intended recipient(s), you are notified that the dissemination, distribution or copying of this information is strictly prohibited. If you received this message in error, please notify the sender then delete this message. Patient verbalizes understanding of the information discussed. Follow-up: Post procedure Patient Education: (Informational booklet, instructions, etc) given at today's appointment: Yes .ED:Patient Education: Y Medications Reviewed: YES In our visit today Ms. Woodard and I have had a chance to go over my understanding of the patient's current condition, the natural course history without intervention and various interventional options. Questions were invited and answered, and the patient wishes to proceed as outlined above. I will be sure to keep you updated afterMsTaurus Woodard returns here for further follow-up. Thank you again for your referral. Please do not hesitate to contact me if you have any further questions. Signed and authenticated by: Frantz Galo [facility] [address] [place] [address] This message is confidential, intended only for the named recipient(s) and may contain information that is privileged or exempt from disclosure under applicable law. If you are not the intended recipient(s), you are notified that the dissemination, distribution or copying of this information is strictly prohibited. If you received this message in error, please notify the sender then delete this message. Patient verbalizes understanding of the information discussed. The above note was initiated by Candelaria Cummings, physician recording magistrate assistant for Dr. Frantz Loza. This note has been reviewed by Dr. Loza, who has made his personal changes and impressions for this document. CC: Rock Clemens M.D. # SIGNED BY Frantz Loza ([facility])09/29/2022 11:31AM Past Medical History Past Medical History: COPD, Hyperlipidemia, Osteoarthritis (OA) Additional Past Medical History / Comment(s): hx anemia History of Any Multi-Drug Resistant Organisms: None Reported Past Surgical History: Back Surgery, Cholecystectomy, Joint Replacement, Orthopedic Surgery Additional Past Surgical History / Comment(s): neck surgery. left hip replacement Past Anesthesia/Blood Transfusion Reactions: No Reported Reaction Additional Past Anesthesia/Blood Transfusion Reaction / Comment(s): no hx blood transfusion Past Psychological History: No Psychological Hx Reported Smoking Status: Current every day smoker Past Alcohol Use History: None Reported Additional Past Alcohol Use History / Comment(s): started smoking at age 14, <1ppd Past Drug Use History: None Reported - Past Family History Mother Family Medical History: Cancer Additional Family Medical History / Comment(s): leukemia Medications and Allergies Home Medications Medication Instructions Recorded Confirmed Type Albuterol Inhaler [Ventolin Hfa 1 - 2 puff INHALATION Q6H PRN 04/04/22 09/27/22 History Inhaler] Albuterol Nebulized (Conc) 2.5 mg INHALATION Q6H PRN 04/04/22 09/27/22 History [Ventolin Nebulized (Conc)] Budesonide/Formoterol Fumarate 2 puff INHALATION BID 04/04/22 09/27/22 History [Symbicort 160-4.5 Mcg Inhaler] Albuterol Sulfate [Proair 1 puff INHALATION Q6H PRN 09/27/22 09/27/22 History Respiclick] Ascorbic Acid [Vitamin C] 500 mg PO DAILY 09/27/22 09/27/22 History Atorvastatin [Lipitor] 40 mg PO HS 09/27/22 09/27/22 History Cholecalciferol [Vitamin D3 (25 25 mcg PO DAILY 09/27/22 09/27/22 History Mcg = 1000 Iu)] Gabapentin 300 mg PO TID 09/27/22 09/27/22 History HYDROcodone/APAP 7.5-325MG [[place] 1 each PO Q6HR PRN 09/27/22 09/27/22 History 7.5] Ibuprofen 600 mg PO BID 09/27/22 09/27/22 History tiZANidine [Zanaflex] 4 mg PO BID 09/27/22 09/27/22 History Allergies Allergy/AdvReac Type Severity Reaction Status Date / Time cephalexin monohydrate Allergy Rash/Hives Verified 10/04/22 05:47 [From Keflex] Sulfa (Sulfonamide Allergy Rash/Hives Verified 10/04/22 05:47 Antibiotics) nickel [Nickel] AdvReac Rash/Hives Verified 10/04/22 05:47 metal AdvReac Rash/Hives Uncoded 09/27/22 13:40 Physical Examination Osteopathic Statement: *. No significant issues noted on an osteopathic structural exam other than those noted in the History and Physical/Consult.
[2022-10-04] MEDS ORDERED: LACTATED RINGERS 1,000 ML IV ONE ×3 (06:50→11:31)
[2022-10-04] MEDS ORDERED: PROPOFOL 10 MG/ML 20 ML VIAL IV ONE (07:23)
[2022-10-04] MEDS ORDERED: SUCCINYLCHOLINE CHLORIDE 200 MG/10 ML VIAL IV ONE (07:23)
[2022-10-04] MEDS ORDERED: LIDOCAINE 2% INJ 20 MG/ML (2 ML VIAL) ONE (07:23)
[2022-10-04] MEDS ORDERED: ROCURONIUM 10 MG/ML (5 ML VIAL) IV ONE (07:23)
[2022-10-04] MEDS ORDERED: KETAMINE 10 MG/ML 20 ML VIAL ONE (07:23)
[2022-10-04] MEDS ORDERED: PHENYLEPHRINE-0.9% NACL SYG 1,000 MCG/10 ML SYRINGE ONE (07:23)
[2022-10-04] MEDS ORDERED: HYDROmorphone (PF) 1 MG/ML ONE (07:23)
[2022-10-04] MEDS ORDERED: TRANEXAMIC ACID IN NACL,ISO-OS 1,000 MG/100 ML BAG ONE (07:23)
[2022-10-04] MEDS ORDERED: fentaNYL (PF) 50 MCG/ML 2 ML AMP ONE (07:23)
[2022-10-04] MEDS ORDERED: ONDANSETRON 4 MG/2 ML VIAL ONE (07:23)
[2022-10-04] MEDS ORDERED: HEPARIN SODIUM,PORCINE 10,000 UNIT/ML 1 ML VIAL ONE (07:23)
[2022-10-04] MEDS ORDERED: ePHEDrine 50 MG/ML 1 ML VIAL ONE (07:23)
[2022-10-04] MEDS ORDERED: NEOSTIGMINE 1 MG/ML 10 ML VIAL ONE (07:23)
[2022-10-04] MEDS ORDERED: MIDAZOLAM 2 MG/2 ML VIAL ONE (07:23)
[2022-10-04] MEDS ORDERED: SODIUM CHLORIDE 0.9% IRRIG 1,000 ML BTL IRRIGATION ONE (07:23)
[2022-10-04] MEDS ORDERED: GELATIN SPONGE,ABSORB (LARGE) 1 EACH SPONGE TOPICAL ONE (08:20)
[2022-10-04] MEDS ORDERED: THROMBIN (BOVINE) 5,000 UNIT VIAL TOPICAL ONE (08:20)
[2022-10-04] MEDS ORDERED: MAGNESIUM HYDROXIDE 2,400 MG/10 ML CUP PO PRN (10:07)
[2022-10-04] MEDS ORDERED: SENNOSIDES-DOCUSATE SODIUM 1 EACH TAB PO PRN (10:07)
[2022-10-04] MEDS ORDERED: CYCLOBENZAPRINE 5 MG TAB PO PRN ×2 (10:07→13:48)
[2022-10-04] MEDS ORDERED: HYDROcodone/APAP 5-325MG 1 EACH TAB PO PRN (10:07)
[2022-10-04] MEDS ORDERED: VANCOMYCIN 1,000 MG VIAL MISCELLANE ONE (13:12)
--- NOTE | 2022-10-04 13:16 | XR ---
Fluoroscopy History: Fusion 1 min 47 sec total for Fl time. 58.5901 DAP.
--- NOTE | 2022-10-04 14:18 | FL ---
Fluoroscopy History: Fluoroscopy PLDF [id number]. 1 min 47 sec total for Fl time. 58.5901 DAP.
[2022-10-04] MEDS ORDERED: IPRATROPIUM-ALBUTEROL 3 ML NEB INHALATION STA (14:34)
[2022-10-04] MEDS ORDERED: ALBUMIN HUMAN 5% (12.5gm) 250 ML BOTTLE IVPB ONE ×2 (14:45→15:00)
[2022-10-04] MEDS ORDERED: PHENYLEPHRINE 40 MG in SODIUM CHLORIDE 0.9% 250 ML IV SCH (14:45)
[2022-10-04 15:23] LABS: Anisocytosis Slight; HCT 24.2 % (34.0-46.0); HGB 7.6 gm/dL (11.4-16.0); Hypochromasia Slight; MCH 32.1 pg (25.0-35.0); MCHC 31.3 g/dL (31.0-37.0); MCV 102.8 fL (80.0-100.0); Macrocytosis Moderate; Mean Platelet Volume 7.6; Platelet Count 260 k/uL (150-450); RBC 2.35 m/uL (3.80-5.40); RDW 16.6 % (11.5-15.5); WBC 9.1 k/uL (3.8-10.6)
--- NOTE | 2022-10-04 15:23 | XR ---
EXAMINATION TYPE: XR chest 1V portable DATE OF EXAM: 10/04/2022 HISTORY: Shortness of breath. COMPARISON: 01/01/2014 TECHNIQUE: Single view of the chest is submitted. FINDINGS: Demonstrated are scattered senescent parenchymal change. Right IJ central venous line with distal ti p overlying the SVC. There is no evidence for pneumothorax. There is no evidence for focal infiltrate. The heart is stable. Hilar and mediastinal structures are within normal limits. Degenerative changes are seen of the dorsal spine. IMPRESSION: 1. Chronic changes without evidence for acute pulmonary disease.
[2022-10-04] MEDS ORDERED: HYDROCORTISONE SUCCINATE 100 MG/2 ML VIAL IV STA (15:35)
[2022-10-04] MEDS ORDERED: HYDROCORTISONE SUCCINATE 100 MG/2 ML VIAL IVP ONE (15:36)
[2022-10-04 15:50] LABS: ABG Base Excess -1.2 mmol/L; ABG HCO3 27 mmol/L (21-25); ABG PCO2 64 mmHg (35-45); ABG PH 7.22 (7.35-7.45); ABG PO2 255 mmHg (83-108); ABG TCO2 28 mmol/L (19-24)
[2022-10-04 15:56] LABS: Allen Test Performed? no
[2022-10-04] MEDS ORDERED: fentaNYL (PF) 50 MCG/1 ML VIAL IVP ONE (16:05)
[2022-10-04] MEDS ORDERED: SODIUM CHLORIDE 0.9% 1,000 ML IV ONE (17:00)
[2022-10-04] MEDS: HYDROmorphone 0.5 MG/0.5 ML SYRINGE IVP PRN (17:05)
[2022-10-04 17:52] LABS: Glucose,Whole Blood 132 mg/dL (70-110)
[2022-10-04] MEDS: HYDROmorphone 1 MG/ML 1 ML SYRINGE IVP PRN (17:55)
[2022-10-04] MEDS ORDERED: ALBUTEROL NEBULIZED 2.5 MG/3 ML INHALATION PRN (18:16)
[2022-10-04] MEDS: GABAPENTIN 300 MG CAP PO SCH ×2 (18:28→21:51)
[2022-10-04] MEDS: SODIUM CHLORIDE 0.9% 1,000 ML IV SCH (18:29)
--- NOTE | 2022-10-04 18:34 | P.EN ---
Event Note: Indication: Low tidal volumes and blood pressure on arrival to the ICU Arrived on Scene to find: ICU nurses at bedside with Blood being administered Patient seen and examined at bedside. Patient sedated and moans to touch will follow commands and squeeze hands with stimuation Vital signs reviewed General: nontoxic, ill appearing Derm: warm, dry Eyes: anicteric sclera, pupils pinpoint Cardiovascular: S1S2 tachy,positive posterior tibial pulse bilateral, no edema, capillary refill less than 2 seconds Lungs: cdiffuse expiratory wheeze bilateral, no accessory muscle use, on Bipap Abdominal: soft, nontender to palpation, no guarding, no appreciable organomegaly, normal bowel sounds Ext: no gross muscle atrophy, no contractures Neuro: moving all 4 extremiites independently Psych: sedated, follows simple commands. Assessment: Acute hypercapnic respiratory failure Acute exacerbation of COPD Acute encephalopathy, metabolic Acute blood loss anemia Imaging: - CXR reviwed by me: increased interstitial marking, central line in appropraite position Data Review: HR 102, RR 9, BP 125/48, 100% on BiPAP at 40% HgB 7.6 intra op with estimated 900 cc of blood loss Plan: - 1 unit of blood order and being given - start duoneb q 4 hours schedule and albuterol q2 prn - solumedrol 60 mg IVP q 6 prn - due to sedation will start acetominophen 1000mg IVPB Q 6 hours X 4 doses, as patient cannot come of bipap for oral medications at this time. Conitnue with dilaudid as needed - Increase IPAP to 14 as Tidal volume is 200-250 on IPAP of 12, check ABG in 30 minutes after change. - Wean phenylephrine as able Disposition: Remain in ICU Notified: Dr. Loza. Will provide immediate care to improve vital signs. Dr. Clemens will be medical consult Nursing will notify Dr. Miguel A Total of 33 minutes of critical care time was spent on the complex care of this patient. This dictation was prepared using [employer] voice recognition software. Though every attempt is made to correct errors during during dictation some may still exist.
[2022-10-04] MEDS: ACETAMINOPHEN IV (For NPO) 1,000 MG in EMPTY BAG 1 BAG IVPB SCH ×2 (18:39→23:56)
[2022-10-04 18:58] LABS: ABG Base Excess 0.1 mmol/L; ABG HCO3 27 mmol/L (21-25); ABG Oxygen Saturation 99.9 % (94-97); ABG PCO2 62 mmHg (35-45); ABG PH 7.25 (7.35-7.45); ABG PO2 161 mmHg (83-108); ABG TCO2 29 mmol/L (19-24); Allen Test Performed? Yes
[2022-10-04] MEDS: IPRATROPIUM-ALBUTEROL 3 ML NEB INHALATION SCH (20:54)
[2022-10-04 21:10] LABS: ABG Base Excess -0.2 mmol/L; ABG HCO3 26 mmol/L (21-25); ABG Oxygen Saturation 99.7 % (94-97); ABG PCO2 50 mmHg (35-45); ABG PH 7.32 (7.35-7.45); ABG PO2 158 mmHg (83-108); ABG TCO2 27 mmol/L (19-24); Allen Test Performed? Yes
[2022-10-04 21:42] LABS: Anisocytosis Slight; HCT 26.3 % (34.0-46.0); HGB 8.2 gm/dL (11.4-16.0); Hypochromasia Slight; MCH 30.6 pg (25.0-35.0); MCV 98.6 fL (80.0-100.0); Macrocytosis Slight; Mean Platelet Volume 7.7; Platelet Count 200 k/uL (150-450); RBC 2.67 m/uL (3.80-5.40); RDW 17.6 % (11.5-15.5); WBC 7.7 k/uL (3.8-10.6)
[2022-10-04] MEDS: HYDROcodone/APAP 10-325MG 1 EACH TAB PO PRN (21:49)
[2022-10-04 21:58] LABS: African American GFR (CKD) >90 (>60 ml/min/1.73 sqM); Anion Gap 2 mmol/L; Blood Urea Nitrogen 11 mg/dL (7-17); Calcium 7.3 mg/dL (8.4-10.2); Carbon Dioxide 26 mmol/L (22-30); Chloride 109 mmol/L (98-107); Glucose 131 mg/dL (74-99); Non-African American GFR(CKD) >90 (>60 ml/min/1.73 sqM); Potassium 4.1 mmol/L (3.5-5.1); Sodium 137 mmol/L (137-145)
[2022-10-04] MEDS: methylPREDNISolone SOD SUCCI 125 MG/2 ML VIAL IV SCH (23:56)
[2022-10-05] MEDS: IPRATROPIUM-ALBUTEROL 3 ML NEB INHALATION PRN ×2 (00:37→04:33)
[2022-10-05] MEDS: IPRATROPIUM-ALBUTEROL 3 ML NEB INHALATION SCH ×5 (00:46→21:20)
[2022-10-05] MEDS: HYDROmorphone 0.5 MG/0.5 ML SYRINGE IVP PRN ×3 (02:03→12:48)
--- NOTE | 2022-10-05 03:12 | P.CNPUL ---
History of Present Illness Consult date: 10/05/22 Requesting physician: Frantz Loza Reason for consult: other (ICU management) Chief complaint: Elective T10 to pelvis decompression and fusion History of present illness: I'm seeing this patient in new consultation today 10/05/2022 in regard to ICU management post T10 to pelvis decompression and fusion. Patient is a 72-year-old white female with past medical history significant for lumbar spondylosis, previous L4 to L5 decompression and fusion, COPD, chronic oxygen dependence at night with 2 L nasal cannula, current [id number] smoker. Patient was brought in yesterday for an elective T10 to pelvis decompression and fusion with Dr. Loza. Patient was extubated to BiPAP in recovery. Apparently, the patient was hypoventilatory and had poor tidal volumes. Most recent ABG shows a pO2 of 158, pCO2 of 50, pH of 7.32. The patient was also hypotensive postoperatively, and was given 1 unit PRBC. Phenylephrine was temporarily use for blood pressure support. Patient was transferred to the intensive care unit. Patient is currently resting in bed, on 4 L nasal cannula, in no acute distress. She is alert, oriented, and responds to questions appropriately. Her BiPAP is on standby. She is able to move all extremities equally, and no focal neurological deficits were noted. Denies saddle anesthesia, bowel or bladder incontinence. Postoperative chest x-ray showed chronic changes without evidence of acute cardiopulmonary disease. There was a right IJ central venous triple-lumen catheter with the distal tip overlying the superior vena cava. There are 2 Hemovacs draining serosanguineous output, with a total of 150 ML's output since surgery. Most recent CBC shows a WBC count of 7.7, hemoglobin 8.2, hematocrit 26.3, platelets 200,000. Patient's BMP was essentially within normal limits. Vital signs are stable. Review of Systems REVIEW OF SYSTEMS: CONSTITUTIONAL: Denies any recent significant weight loss or weight gain. EYES: Denies change in vision. EARS, NOSE, MOUTH, THROAT: Denies headaches, denies sore throat. CARDIOVASCULAR: Denies chest pain, palpitations or syncopal episodes. RESPIRATORY: Denies shortness of breath, cough, congestion or hemoptysis. GASTROINTESTINAL: Denies change in appetite, abdominal pain, nausea and vomiting, or diarrhea GENITOURINARY: Denies hematuria, denies infections. MUSKULOSKELETAL: Admits chronic lower back pain INTEGUMENTARY: Denies rash, denies eczema. NEUROLOGICAL: Denies recent memory loss, no recent seizure activity. PSYCHIATRIC: Denies anxiety, denies depression. HEMATOLOGIC/LYMPHATIC: Denies anemia, denies enlarged lymph node Past Medical History Past Medical History: COPD, Hyperlipidemia, Osteoarthritis (OA) Additional Past Medical History / Comment(s): hx anemia History of Any Multi-Drug Resistant Organisms: None Reported Past Surgical History: Back Surgery, Cholecystectomy, Joint Replacement, Orthopedic Surgery Additional Past Surgical History / Comment(s): neck surgery. left hip replacement Past Anesthesia/Blood Transfusion Reactions: No Reported Reaction Additional Past Anesthesia/Blood Transfusion Reaction / Comment(s): no hx blood transfusion Past Psychological History: No Psychological Hx Reported Smoking Status: Current every day smoker Past Alcohol Use History: None Reported Additional Past Alcohol Use History / Comment(s): started smoking at age 14, <1ppd Past Drug Use History: None Reported - Past Family History Mother Family Medical History: Cancer Additional Family Medical History / Comment(s): leukemia Medications and Allergies Home Medications Medication Instructions Recorded Confirmed Type Albuterol Inhaler [Ventolin Hfa 1 - 2 puff INHALATION Q6H PRN 04/04/22 09/27/22 History Inhaler] Albuterol Nebulized (Conc) 2.5 mg INHALATION Q6H PRN 04/04/22 09/27/22 History [Ventolin Nebulized (Conc)] Budesonide/Formoterol Fumarate 2 puff INHALATION BID 04/04/22 09/27/22 History [Symbicort 160-4.5 Mcg Inhaler] Albuterol Sulfate [Proair 1 puff INHALATION Q6H PRN 09/27/22 09/27/22 History Respiclick] Ascorbic Acid [Vitamin C] 500 mg PO DAILY 09/27/22 09/27/22 History Atorvastatin [Lipitor] 40 mg PO HS 09/27/22 09/27/22 History Cholecalciferol [Vitamin D3 (25 25 mcg PO DAILY 09/27/22 09/27/22 History Mcg = 1000 Iu)] Gabapentin 300 mg PO TID 09/27/22 09/27/22 History HYDROcodone/APAP 7.5-325MG [[place] 1 each PO Q6HR PRN 09/27/22 09/27/22 History 7.5] Ibuprofen 600 mg PO BID 09/27/22 09/27/22 History tiZANidine [Zanaflex] 4 mg PO BID 09/27/22 09/27/22 History Allergies Allergy/AdvReac Type Severity Reaction Status Date / Time cephalexin monohydrate Allergy Rash/Hives Verified 10/04/22 05:47 [From Keflex] Sulfa (Sulfonamide Allergy Rash/Hives Verified 10/04/22 05:47 Antibiotics) nickel [Nickel] AdvReac Rash/Hives Verified 10/04/22 05:47 metal AdvReac Rash/Hives Uncoded 09/27/22 13:40 Physical Exam Vitals: Vital Signs Temp Pulse Pulse Pulse Resp BP BP 10/05/22 02:30 92 12 125/53 10/05/22 02:00 94 14 111/52 10/05/22 01:30 93 16 114/52 10/05/22 01:00 92 13 119/52 10/05/22 00:50 98 10/05/22 00:38 96 10/05/22 00:30 96 12 117/49 10/05/22 00:07 97 14 108/51 10/05/22 00:00 97.7 F 92 10 L 106/56 10/04/22 23:30 101 H 16 108/50 10/04/22 23:00 93 14 114/46 10/04/22 22:30 94 12 121/60 10/04/22 22:00 96 12 126/66 10/04/22 21:30 103 H 14 120/59 10/04/22 21:10 100 10/04/22 21:00 103 H 14 100/54 10/04/22 20:30 96 14 10/04/22 20:00 98.5 F 108 H 16 118/54 10/04/22 19:51 10/04/22 19:50 98.5 F 103 H 14 130/74 10/04/22 19:48 10/04/22 19:40 95 14 123/58 10/04/22 19:30 95 14 111/52 10/04/22 19:20 97 14 121/54 10/04/22 19:10 93 14 116/53 10/04/22 19:00 96 14 116/56 10/04/22 18:50 95 14 109/56 10/04/22 18:40 97 14 118/55 10/04/22 18:33 98.7 F 93 16 118/55 10/04/22 18:30 93 14 108/50 10/04/22 18:20 94 14 118/48 10/04/22 18:13 96 15 118/48 10/04/22 18:10 98 14 125/48 10/04/22 18:06 98 F 102 H 13 125/48 10/04/22 18:00 102 H 14 122/55 10/04/22 17:57 104 H 14 113/53 10/04/22 17:31 109 H 16 10/04/22 17:15 104 H 16 10/04/22 17:02 109 H 16 10/04/22 16:45 111 H 16 10/04/22 16:30 96 16 10/04/22 16:15 102 H 16 136/63 10/04/22 16:02 96 16 10/04/22 15:46 91 16 141/62 10/04/22 15:31 105 H 16 103/53 10/04/22 15:15 91 16 103/53 10/04/22 15:05 79 16 108/50 10/04/22 15:00 87 10/04/22 14:50 86 10/04/22 14:35 100 16 94/49 10/04/22 14:30 100 16 101/54 10/04/22 14:15 94 16 73/51 10/04/22 14:11 97.6 F 97 16 73/51 10/04/22 06:58 87 16 139/56 10/04/22 06:35 87 16 118/55 10/04/22 05:59 98.8 F 91 16 129/59 BP Pulse Ox FiO2 10/05/22 02:30 94 L 10/05/22 02:00 100 10/05/22 01:30 99 10/05/22 01:00 100 10/05/22 00:50 10/05/22 00:38 10/05/22 00:30 100 10/05/22 00:07 100 10/05/22 00:00 100 4 10/04/22 23:30 100 10/04/22 23:00 100 10/04/22 22:30 100 10/04/22 22:00 100 10/04/22 21:30 100 10/04/22 21:10 10/04/22 21:00 99 30 10/04/22 20:30 98 10/04/22 20:00 99 30 10/04/22 19:51 30 10/04/22 19:50 99 10/04/22 19:48 30 10/04/22 19:40 100 30 10/04/22 19:30 99 10/04/22 19:20 99 10/04/22 19:10 100 10/04/22 19:00 100 10/04/22 18:50 100 10/04/22 18:40 99 10/04/22 18:33 99 10/04/22 18:30 99 10/04/22 18:20 100 10/04/22 18:13 100 10/04/22 18:10 100 10/04/22 18:06 100 10/04/22 18:00 100 10/04/22 17:57 99 10/04/22 17:31 124/56 97 40 10/04/22 17:15 97/56 97 40 10/04/22 17:02 148/55 100 40 10/04/22 16:45 150/57 100 40 10/04/22 16:30 126/52 100 40 10/04/22 16:15 144/59 100 40 10/04/22 16:02 160/50 100 40 10/04/22 15:46 150/50 100 10/04/22 15:31 99/40 100 10/04/22 15:15 119/49 100 10/04/22 15:05 127/52 100 10/04/22 15:00 10/04/22 14:50 10/04/22 14:35 100/40 100 10/04/22 14:30 100 10/04/22 14:15 100 10/04/22 14:11 100 10/04/22 06:58 100 10/04/22 06:35 100 10/04/22 05:59 97 Intake and Output 10/04/22 10/04/22 10/05/22 14:59 22:59 06:59 Intake Total 2550 1236.958 390 Output Total 1350 490 130 Balance 1200 746.958 260 Intake: IV 2550 250 Intake, IV Titration 676.958 390 Amount ACETAMINOPHEN IV (For NPO 100 ) 1,000 mg In Empty Bag 1 bag @ 400 mls/hr IVPB Q6HR [facility] Rx#:[id number] Phenylephrine 40 mg In 6.958 Sodium Chloride 0.9% 250 ml @ 0.5 MCG/KG/MIN 10.23 mls/hr IV .Q24H [facility] Rx#: [id number] Sodium Chloride 0.9% 1, 520 390 000 ml @ 130 mls/hr IV . Q7H42M [facility] Rx#:[id number] ceFAZolin 2 gm In Sodium 50 Chloride 0.9% 50 ml @ 100 mls/hr IVPB Q8HR [facility] Rx# :[id number] Blood Product 310 Rc As-1 Unit 310 [id number] Output: Drainage 150 Lower Back 100 Upper Back 50 Urine 450 340 130 Estimated Blood Loss 900 Other: Voiding Method Indwelling Catheter ABP, PAP, CO, CI - Last 8 Hours Arterial Blood Pressure 118/56 Arterial Blood Pressure 125/54 Arterial Blood Pressure 85/59 Arterial Blood Pressure 126/85 Arterial Blood Pressure 114/84 Arterial Blood Pressure 116/82 Arterial Blood Pressure 100/66 Arterial Blood Pressure 128/46 Arterial Blood Pressure 89/50 GENERAL EXAM: Alert, 72-year-old white female, comfortable in no apparent distress. HEAD: Normocephalic and atraumatic EYES: Normal reaction of pupils, equal size. NOSE: Clear with pink turbinates. THROAT: No erythema or exudates. NECK: No masses, no JVD. CHEST: No chest wall deformity. LUNGS: Equal air entry with no crackles, wheeze, rhonchi or dullness. On 4 L nasal cannula. No conversational dyspnea or accessory muscle use.. CVS: S1 and S2 normal with no audible murmur, regular rhythm. No extra heart sounds ABDOMEN: No hepatosplenomegaly, active bowel sounds, no guarding or rigidity. SPINE: No scoliosis or deformity. Postoperative incisional dressing is clean, dry, intact. [address] and draining serosanguineous output SKIN: No rashes CENTRAL NERVOUS SYSTEM: No focal deficits, tone is normal in all 4 extremities. EXTREMITIES: There is no peripheral edema, clubbing, or cyanosis. Peripheral pulses are intact. Results - Laboratory Findings CBC and BMP: 10/05/22 06:00 10/05/22 06:00 ABG ABG pH 7.32 (7.35-7.45) L 10/04/22 21:00 ABG pCO2 50 mmHg (35-45) H 10/04/22 21:00 ABG pO2 158 mmHg (83-108) H 10/04/22 21:00 ABG O2 Saturation 99.7 % (94-97) H 10/04/22 21:00 Abnormal lab findings: Abnormal Labs 09/26/22 10/04/22 10/04/22 10:07 14:55 15:35 RBC 2.35 L Hgb 7.6 L Hct 24.2 L MCV 102.8 H RDW 16.6 H ABG pH 7.22 L ABG pCO2 64 H ABG pO2 255 H ABG HCO3 27 H ABG Total CO2 28 H ABG O2 Saturation 100.0 H Chloride Creatinine Glucose POC Glucose (mg/dL) Calcium Crossmatch See Detail 10/04/22 10/04/22 10/04/22 17:47 18:55 21:00 RBC Hgb Hct MCV RDW ABG pH 7.25 L 7.32 L ABG pCO2 62 H 50 H ABG pO2 161 H 158 H ABG HCO3 27 H 26 H ABG Total CO2 29 H 27 H ABG O2 Saturation 99.9 H 99.7 H Chloride Creatinine Glucose POC Glucose (mg/dL) 132 H Calcium Crossmatch 10/04/22 10/04/22 21:25 21:25 RBC 2.67 L Hgb 8.2 L Hct 26.3 L MCV RDW 17.6 H ABG pH ABG pCO2 ABG pO2 ABG HCO3 ABG Total CO2 ABG O2 Saturation Chloride 109 H Creatinine 0.41 L Glucose 131 H POC Glucose (mg/dL) Calcium 7.3 L Crossmatch - Diagnostic Findings Chest x-ray: image reviewed Assessment and Plan Assessment: Postoperative day #1 elective T10 to pelvis decompression and fusion. This was a revision from a previous L4 to L5 decompression and fusion back in 2013. Acute on chronic hypoxic and hypercapnic respiratory failure. Patient did require BiPAP postoperatively, and is currently on 4 L nasal cannula. Patient does normally utilize 2 L/m nasal cannula at night. Postoperative hypotension, recovered Acute blood loss anemia, status post transfusion of 1 unit PRBC Acute COPD exacerbation Lumbar spondylosis and radiculopathy Chronic nicotine dependence Hyperlipidemia Plan: Patient's medication, labs, chest x-ray reviewed Continue bronchodilators, Solu-Medrol Restart Symbicort Wean FiO2 as tolerated BiPAP on standby Repeat labs in the morning Pain management We'll continue to monitor patient in the ICU Prognosis is guarded I have personally seen and examined the patient, performed the documentation and the assessment and plan as written. Number of minutes spent on the visit:20 Time with Patient: Greater than 30
[2022-10-05] MEDS: HYDROcodone/APAP 10-325MG 1 EACH TAB PO PRN ×3 (04:50→17:11)
[2022-10-05] MEDS: SODIUM CHLORIDE 0.9% 1,000 ML IV SCH ×3 (04:55→11:00)
[2022-10-05] MEDS: LACTATED RINGERS 1,000 ML IV SCH (05:47)
[2022-10-05] MEDS: methylPREDNISolone SOD SUCCI 125 MG/2 ML VIAL IV SCH ×4 (05:47→23:00)
[2022-10-05] MEDS: ACETAMINOPHEN IV (For NPO) 1,000 MG in EMPTY BAG 1 BAG IVPB SCH ×2 (05:47→12:47)
[2022-10-05 06:20] LABS: Anisocytosis Slight; Basophils % (A) 0 %; Eosinophils % (A) 0 %; HCT 24.7 % (34.0-46.0); HGB 7.9 gm/dL (11.4-16.0); Hypochromasia Slight; Lymphocytes # (A) 0.5 k/uL (1.0-4.8); Lymphocytes % (A) 6 %; MCH 31.6 pg (25.0-35.0); MCHC 31.8 g/dL (31.0-37.0); MCV 99.3 fL (80.0-100.0); Macrocytosis Slight; Mean Platelet Volume 7.7; Monocytes # (A) 0.2 k/uL (0-1.0); Monocytes % (A) 3 %; Neutrophils # (A) 7.6 k/uL (1.3-7.7); Neutrophils % (A) 91 %; Platelet Count 192 k/uL (150-450); Poikilocytosis Slight; RBC 2.49 m/uL (3.80-5.40); RDW 17.5 % (11.5-15.5); WBC 8.3 k/uL (3.8-10.6)
[2022-10-05] MEDS: HYDROmorphone 1 MG/ML 1 ML SYRINGE IVP PRN ×2 (06:27→10:34)
[2022-10-05 06:32] LABS: African American GFR (CKD) >90 (>60 ml/min/1.73 sqM); Anion Gap 4 mmol/L; Blood Urea Nitrogen 9 mg/dL (7-17); Calcium 7.2 mg/dL (8.4-10.2); Carbon Dioxide 25 mmol/L (22-30); Chloride 107 mmol/L (98-107); Glucose 116 mg/dL (74-99); Non-African American GFR(CKD) >90 (>60 ml/min/1.73 sqM); Sodium 136 mmol/L (137-145)
--- NOTE | 2022-10-05 07:20 | CT ---
EXAMINATION TYPE: CT thor lumbar spine wo con CT DLP: 1366.2 mGycm, Automated exposure control for dose reduction was used. DATE OF EXAM: 10/05/2022 2:08 AM CLINICAL INDICATION:Female, 72 years old with history of s/p [id number] decompr-fusion; s/p [id number] s decompr-fusion COMPARISON: CT chest dated 01/12/2022. TECHNIQUE: Axial images of the thoracic and lumbar spine were obtained without contrast. Coronal and sagittal reformats were performed. CT Contrast: Contrast used: none. Oral contrast used: none. FINDINGS: Significant interval surgical change now with hardware extending from T10 to S1. Hardware appears int act. There is subcutaneous lucencies in the surgical bed with skin jose luis present. Discectomy change s at L5-S1, L3-L4 and L2-L3. Compression fracture of T12 remains present. Within the limitation of th is examination with streak artifact the spinal canal appears patent. The neural foramen are also appe aring patent. There is bilateral sacroiliac joint fixation screws present. No evidence of acute fract ure. Spinal canal neural foramen appear patent within the limitations of this exam. Alignment has a p ostsurgical alignment. Mild scoliosis changes of the upper thoracic spine. Atherosclerosis of the arterial vasculature. Visualized lungs are without evidence for pneumothorax, focal consolidation or pleural effusion. There is an azygous fissure in the right upper lung. Central venous catheter with tip terminating in the superior vena cava is present. There is within normal li mits for size. IMPRESSION: 1. Postsurgical changes without evidence of hardware failure. 2. No evidence of acute fracture. The spinal canal and neural foramen appear patent within the limit ations of this exam.
[2022-10-05] MEDS: GABAPENTIN 300 MG CAP PO SCH ×3 (08:20→22:55)
[2022-10-05] MEDS: SYMBICORT 160-4.5 MCG INHALER INHALATION SCH ×2 (09:09→21:20)
--- NOTE | 2022-10-05 09:17 | P.PN ---
Subjective Progress Note Date: 10/05/22 Principal diagnosis: 1. 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 Grade 1 retrolisthesis L2-L3 5. Status post L4-L5 decompression and fusion 6. Right lower extremity radiculopathy 7. lower extremity weakness 8. neurogenic claudication 9. low back pain Patient seen and examined this morning. Patient is currently resting comfortably in bed. She is currently off Bi-Pap and tolerating this well. Current vitals BP 121/52, HR 76, Spo2 98% on 3L NC. plant operator/shift supervisor RN had just rolled patient to check incision and states that it is clean dry and intact, no shadowing noted. x2 Hemovacs present with a total of 260ml output overnight. Patient does have complaint of back pain, instructed patient to request pain medication if needed. Patient states she is comfortable as long as she is not moving. Informed patient as long as she remains medically stable that she needs to work with PT/OT today. Patient is able to perform bed exercises with limitations due to pain. Patient has been afebrile, denies nausea/vomiting, or chest pain. Objective - Vital Signs Vital signs: Vital Signs Temp 99.1 F 10/05/22 08:00 Pulse 92 10/05/22 08:00 Resp 16 10/05/22 08:00 BP 118/57 10/05/22 08:00 Pulse Ox 98 10/05/22 08:00 FiO2 4 10/05/22 00:00 Intake & Output 10/04/22 10/05/22 10/05/22 18:59 06:59 18:59 Intake Total 2804.536 2152.422 130 Output Total 1350 1230 240 Balance 1454.536 922.422 -110 Weight 60.2 kg Intake: IV 2800 130 Sodium Chloride 0.9% 1, 130 000 ml @ 130 mls/hr IV . Q7H42M [facility] Rx#:[id number] Intake, IV Titration 4.536 1842.422 Amount ACETAMINOPHEN IV (For NPO 100 ) 1,000 mg In Empty Bag 1 bag @ 400 mls/hr IVPB Q6HR [facility] Rx#:[id number] Phenylephrine 40 mg In 4.536 2.422 Sodium Chloride 0.9% 250 ml @ 0.5 MCG/KG/MIN 10.23 mls/hr IV .Q24H [facility] Rx#: [id number] Sodium Chloride 0.9% 1, 1690 000 ml @ 130 mls/hr IV . Q7H42M [facility] Rx#:[id number] ceFAZolin 2 gm In Sodium 50 Chloride 0.9% 50 ml @ 100 mls/hr IVPB Q8HR [facility] Rx# :[id number] Blood Product 0 310 Rc As-1 Unit 0 310 [id number] Output: Drainage 410 Lower Back 300 Upper Back 110 Urine 450 820 240 Estimated Blood Loss 900 Other: Voiding Method Indwelling Catheter Indwelling Catheter ABP, PAP, CO, CI - Last Documented Arterial Blood Pressure 118/56 - Exam Patient is alert and oriented 3 appears well-nourished well-hydrated is in no acute distress. They do not appear septic. On exam the patient has moderate tenderness to palpation of her thoracic and lumbar spine. There is no edema or ballottement sign. Patient has a surgical incision to the thoracolumbar region with x2 hemovacs present and patent with 260ml output overnight. Surgical dressing is CDI, no shadowing noted. Lower extremities with 4-/5 strength in all major muscle groups Upper extremities show 4/5 strength in all major muscle groups. 2/4DTR all UE and LE b/l Patient shows a negative Homans, Dalal's, negative Babinski's negative clonus bilaterally. Negative straight leg raise bilaterally. No tensioning signs. Cranial nerves II through XII are grossly intact. There is FROM of the bilateral upper extremities and ROM of the bilateral lower extremities that is limited to pain and stiffness from recent surgery. They are intact to light touch sensation in L2 to S1 nerve distribution. Patient has palpable dorsalis pedis was posterior tibial pulses. Compartments are soft and compressible. - Labs CBC & Chem 7: 10/05/22 06:00 10/05/22 06:00 Labs: Abnormal Lab Results - Last 24 Hours (Table) 09/26/22 10/04/22 10/04/22 Range/Units 10:07 14:55 15:35 RBC 2.35 L (3.80-5.40) m/uL Hgb 7.6 L (11.4-16.0) gm/dL Hct 24.2 L (34.0-46.0) % MCV 102.8 H (80.0-100.0) fL RDW 16.6 H (11.5-15.5) % Lymphocytes # (1.0-4.8) k/uL ABG pH 7.22 L (7.35-7.45) ABG pCO2 64 H (35-45) mmHg ABG pO2 255 H (83-108) mmHg ABG HCO3 27 H (21-25) mmol/L ABG Total CO2 28 H (19-24) mmol/L ABG O2 Saturation 100.0 H (94-97) % Sodium (137-145) mmol/L Chloride (98-107) mmol/L Creatinine (0.52-1.04) mg/dL Glucose (74-99) mg/dL POC Glucose (mg/dL) (70-110) mg/dL Calcium (8.4-10.2) mg/dL Crossmatch See Detail 10/04/22 10/04/22 10/04/22 Range/Units 17:47 18:55 21:00 RBC (3.80-5.40) m/uL Hgb (11.4-16.0) gm/dL Hct (34.0-46.0) % MCV (80.0-100.0) fL RDW (11.5-15.5) % Lymphocytes # (1.0-4.8) k/uL ABG pH 7.25 L 7.32 L (7.35-7.45) ABG pCO2 62 H 50 H (35-45) mmHg ABG pO2 161 H 158 H (83-108) mmHg ABG HCO3 27 H 26 H (21-25) mmol/L ABG Total CO2 29 H 27 H (19-24) mmol/L ABG O2 Saturation 99.9 H 99.7 H (94-97) % Sodium (137-145) mmol/L Chloride (98-107) mmol/L Creatinine (0.52-1.04) mg/dL Glucose (74-99) mg/dL POC Glucose (mg/dL) 132 H (70-110) mg/dL Calcium (8.4-10.2) mg/dL Crossmatch 10/04/22 10/04/22 10/05/22 Range/Units 21:25 21:25 06:00 RBC 2.67 L 2.49 L (3.80-5.40) m/uL Hgb 8.2 L 7.9 L (11.4-16.0) gm/dL Hct 26.3 L 24.7 L (34.0-46.0) % MCV (80.0-100.0) fL RDW 17.6 H 17.5 H (11.5-15.5) % Lymphocytes # 0.5 L (1.0-4.8) k/uL ABG pH (7.35-7.45) ABG pCO2 (35-45) mmHg ABG pO2 (83-108) mmHg ABG HCO3 (21-25) mmol/L ABG Total CO2 (19-24) mmol/L ABG O2 Saturation (94-97) % Sodium (137-145) mmol/L Chloride 109 H (98-107) mmol/L Creatinine 0.41 L (0.52-1.04) mg/dL Glucose 131 H (74-99) mg/dL POC Glucose (mg/dL) (70-110) mg/dL Calcium 7.3 L (8.4-10.2) mg/dL Crossmatch 10/05/22 Range/Units 06:00 RBC (3.80-5.40) m/uL Hgb (11.4-16.0) gm/dL Hct (34.0-46.0) % MCV (80.0-100.0) fL RDW (11.5-15.5) % Lymphocytes # (1.0-4.8) k/uL ABG pH (7.35-7.45) ABG pCO2 (35-45) mmHg ABG pO2 (83-108) mmHg ABG HCO3 (21-25) mmol/L ABG Total CO2 (19-24) mmol/L ABG O2 Saturation (94-97) % Sodium 136 L (137-145) mmol/L Chloride (98-107) mmol/L Creatinine 0.33 L (0.52-1.04) mg/dL Glucose 116 H (74-99) mg/dL POC Glucose (mg/dL) (70-110) mg/dL Calcium 7.2 L (8.4-10.2) mg/dL Crossmatch Assessment and Plan Assessment: Postop day 1: Revision [id number] decompression and fusion Acute on chronic hypoxic and hypercapnic respiratory failure. Postoperative hypotension, resolved Post-Op anemia T12 VCF 25 degree kyphosis L2-3, L3-4 lateral lithesis L2-3, L3-4 Spondylosis, spondylolisthesis and stenosis Grade 1 retrolisthesis L2-L3 Status post L4-L5 decompression and fusion Right lower extremity radiculopathy Bilateral lower extremity weakness Plan: -Appreciate search engine optimization consultant and team management. -Continue to monitor labs; Hgb -Activity: Ambulate QID, OOB all meals, up and about, limit lifting bending twisting to less than 5 lbs. Use walker or cane if needed for stability. -Daily PT/OT, increase ambulation strength and balance. -TLSO Brace when up and about, not needed in bed or chair -Pain control: Adequate at this time -Meds: reviewed -GI ppx: senna, Miralax -DC garcia when up and about, bedside commode if needed -DVT PPX: OK to restart Heparin tonight -Hygiene: Shower today. Maintain dressing clean and dry. Meticulous cleaning after BMs away from the incision site -Drains: Maintain for now. Continue to record output every shift -Encourage IS 10x/hr -Dispo: Anticipate discharge within the next 3-4 days to [facility] *I reviewed and discussed this case with my attending Dr. Loza, whom has reviewed this chart and films and is in agreement with assessment and plan of care as outlined above. I have personally seen and examined the patient, performed the documentation and the assessment and plan as written. Number of minutes spent on the visit: 15m.
[2022-10-05] MEDS: CYCLOBENZAPRINE 10 MG TAB PO PRN (10:01)
[2022-10-05] MEDS: ACETAMINOPHEN TAB 325 MG TAB PO SCH (12:49)
[2022-10-06] MEDS: HYDROcodone/APAP 10-325MG 1 EACH TAB PO PRN ×4 (01:52→17:07)
[2022-10-06] MEDS: CYCLOBENZAPRINE 10 MG TAB PO PRN ×2 (01:52→07:07)
--- NOTE | 2022-10-06 02:39 | CONS ---
CONSULTATION HISTORY OF PRESENT ILLNESS: This 72-year-old white female is status post hypotensive, postoperatively after lumbar fusion, comes into the ICU. She is on 4 L nasal cannula, she has responded to questions appropriately, BiPAP is on standby. She has severe COPD history with nicotine addiction. She has chronic changes on her chest x-ray. She has been smoking for many years. Labs were reviewed. REVIEW OF SYSTEMS: A 14-point review of system reviewed, negative. FAMILY HISTORY: Reviewed. Mother with leukemia. HOME MEDICATIONS: Reviewed. PHYSICAL EXAMINATION: VITAL SIGNS: Temperature 98.5, pulse is 90s to 100s, respiratory rate 18 to 20, blood pressure 120s to 110s over 70s to 80s. CARDIOVASCULAR: S1, S2. LUNGS: Transmitted upper sounds. HEMATOLOGY: Negative for Homans. GI: Soft. SKIN: No rash, excoriation, or bruising symptoms. NEUROLOGIC: Cranial nerves are intact. LABORATORY DATA: White count 3.3, hemoglobin 7.9, BUN is 9, creatinine 0.33, sodium 136. Labs are reviewed, ICU notes reviewed. She is postoperative T10 to pelvis decompression and fusion, COPD exacerbation, acute hypoxic respiratory failure, severe COPD , she is on BiPAP postoperatively, now on 4 L. She normally uses 2 L at night. She has recovered from anesthesia, hypotension, acute blood loss anemia, had 1 unit of blood. Blood loss secondary to surgery, COPD, nicotine addiction, and dyslipidemia. Continue current treatments. Wean off oxygen as tolerated. Updraft treatments, transfuse as needed if hemoglobin down to 7. Prognosis guarded. MMODL / IJN: [id number] /
[2022-10-06 04:18] LABS: ALT 110 U/L (4-34); African American GFR (CKD) >90 (>60 ml/min/1.73 sqM); Albumin 2.7 g/dL (3.5-5.0); Anion Gap 5 mmol/L; Blood Urea Nitrogen 10 mg/dL (7-17); Calcium 7.8 mg/dL (8.4-10.2); Carbon Dioxide 24 mmol/L (22-30); Chloride 106 mmol/L (98-107); Glucose 128 mg/dL (74-99); Non-African American GFR(CKD) >90 (>60 ml/min/1.73 sqM); Sodium 135 mmol/L (137-145); Total Bilirubin 0.6 mg/dL (0.2-1.3); Total Protein 5.3 g/dL (6.3-8.2)
[2022-10-06 05:10] LABS: AST 84 U/L (14-36); Alkaline Phosphatase 80 U/L (38-126); Potassium 3.6 mmol/L (3.5-5.1)
[2022-10-06 05:34] LABS: Anisocytosis Slight; Basophils % (A) 0 %; Eosinophils # (A) 0.1 k/uL (0-0.7); Eosinophils % (A) 1 %; HCT 24.4 % (34.0-46.0); Lymphocytes # (A) 0.6 k/uL (1.0-4.8); Lymphocytes % (A) 4 %; MCH 31.8 pg (25.0-35.0); MCHC 32.6 g/dL (31.0-37.0); MCV 97.5 fL (80.0-100.0); Macrocytosis Slight; Mean Platelet Volume 8.6; Monocytes # (A) 0.9 k/uL (0-1.0); Monocytes % (A) 5 %; Neutrophils # (A) 15.1 k/uL (1.3-7.7); Neutrophils % (A) 88 %; Platelet Count 225 k/uL (150-450); Poikilocytosis Slight; RBC 2.51 m/uL (3.80-5.40); RDW 17.7 % (11.5-15.5); WBC 17.1 k/uL (3.8-10.6)
[2022-10-06] MEDS: methylPREDNISolone SOD SUCCI 125 MG/2 ML VIAL IV SCH ×3 (05:58→17:07)
[2022-10-06] MEDS ORDERED: POTASSIUM CHLORIDE ER 20 MEQ TAB.ER PO SCH (06:00)
--- NOTE | 2022-10-06 08:16 | P.PN ---
Subjective Progress Note Date: 10/06/22 Principal diagnosis: 1. 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 Grade 1 retrolisthesis L2-L3 5. Status post L4-L5 decompression and fusion 6. Right lower extremity radiculopathy 7. lower extremity weakness 8. neurogenic claudication 9. low back pain Patient seen and examined this morning. Patient is currently sitting up in chair at bedside. TLSO brace is present in room. Patient does have complaint of midlow back pain that is exacerbated with activity. Medications have been adjusted. Surgical dressing of the thoracolumbar spine is clean dry and intact. Upper and lower hemovacs are present with a overnight output of 150ml. Upper h emovac has been removed at this time. New dressing applied to this site. Encouraged patient to continue to work with PT and to use her incentive spirometer. VSS at BP 135/58, HR 86, T 98.3, SpO2 100% on 3L NC. Patient has been afebrile, denies nausea/vomiting, or chest pain. Objective - Vital Signs Vital signs: Vital Signs Temp 98.3 F 10/06/22 04:00 Pulse 86 10/06/22 04:00 Resp 16 10/06/22 04:00 BP 132/58 10/06/22 06:00 Pulse Ox 100 10/06/22 06:00 FiO2 4 10/05/22 00:00 Intake & Output 10/05/22 10/06/22 10/06/22 18:59 06:59 18:59 Intake Total 1380 125 Output Total 520 1255 Balance 860 -1130 Intake: IV 880 125 Sodium Chloride 0.9% 1, 880 125 000 ml @ 75 mls/hr IV . [id number] [facility] Rx#:[id number] Oral 500 Output: Drainage 80 255 Lower Back 80 200 Upper Back 0 55 Urine 440 1000 Stool 0 Other: Voiding Method Indwelling Catheter Toilet # Voids 1 ABP, PAP, CO, CI - Last Documented Arterial Blood Pressure 118/56 - Exam Patient is alert and oriented 3 appears well-nourished well-hydrated is in no acute distress. They do not appear septic. On exam the patient has moderate tenderness to palpation of her thoracic and lumbar spine. There is no edema or ballottement sign. Patient has a surgical incision to the thoracolumbar region with x2 hemovacs present and patent with 150ml output overnight. Upper hemovac has been removed. Surgical dressing is CDI. Lower extremities with 4-/5 strength in all major muscle groups Upper extremities show 4/5 strength in all major muscle groups. 2/4DTR all UE and LE b/l Patient shows a negative Homans, Dalal's, negative Babinski's negative clonus bilaterally. Negative straight leg raise bilaterally. No tensioning signs. Cranial nerves II through XII are grossly intact. There is FROM of the bilateral upper extremities and ROM of the bilateral lower extremities that is limited to pain and stiffness from recent surgery. They are intact to light touch sensation in L2 to S1 nerve distribution. Patient has palpable dorsalis pedis was posterior tibial pulses. Compartments are soft and compressible. - Labs CBC & Chem 7: 10/06/22 05:25 10/06/22 03:32 Labs: Abnormal Lab Results - Last 24 Hours (Table) 10/06/22 10/06/22 Range/Units 03:32 05:25 WBC 17.1 H (3.8-10.6) k/uL RBC 2.51 L (3.80-5.40) m/uL Hgb 8.0 L (11.4-16.0) gm/dL Hct 24.4 L (34.0-46.0) % RDW 17.7 H (11.5-15.5) % Neutrophils # 15.1 H (1.3-7.7) k/uL Lymphocytes # 0.6 L (1.0-4.8) k/uL Sodium 135 L (137-145) mmol/L Creatinine 0.28 L (0.52-1.04) mg/dL Glucose 128 H (74-99) mg/dL Calcium 7.8 L (8.4-10.2) mg/dL AST 84 H (14-36) U/L ALT 110 H (4-34) U/L Total Protein 5.3 L (6.3-8.2) g/dL Albumin 2.7 L (3.5-5.0) g/dL Assessment and Plan Assessment: Postop day 2: Revision [id number] decompression and fusion Acute on chronic hypoxic and hypercapnic respiratory failure. Postoperative hypotension, resolved Post-Op anemia T12 VCF 25 degree kyphosis L2-3, L3-4 lateral lithesis L2-3, L3-4 Spondylosis, spondylolisthesis and stenosis Grade 1 retrolisthesis L2-L3 Status post L4-L5 decompression and fusion Right lower extremity radiculopathy Bilateral lower extremity weakness Plan: -Appreciate internet sales consultant and team management. -Continue to monitor labs; Hgb -Activity: Ambulate QID, OOB all meals, up and about, limit lifting bending twisting to less than 5 lbs. Use walker or cane if needed for stability. -Daily PT/OT, increase ambulation strength and balance. -TLSO Brace when up and about, not needed in bed or chair -Pain control: Adequate at this time -Meds: reviewed -GI ppx: senna, Miralax -DVT PPX: OK to restart Heparin tonight -Hygiene: Shower today. Maintain dressing clean and dry. Meticulous cleaning after BMs away from the incision site -Drains: Maintain for now. Continue to record output every shift -Encourage IS 10x/hr -Dispo: Anticipate discharge within the next 3-4 days *I reviewed and discussed this case with my attending Dr. Loza, whom has reviewed this chart and films and is in agreement with assessment and plan of care as outlined above. I have personally seen and examined the patient, performed the documentation and the assessment and plan as written. Number of minutes spent on the visit: 15m.
[2022-10-06] MEDS: SYMBICORT 160-4.5 MCG INHALER INHALATION SCH ×2 (08:22→22:12)
[2022-10-06] MEDS: IPRATROPIUM-ALBUTEROL 3 ML NEB INHALATION SCH ×4 (08:22→22:12)
[2022-10-06] MEDS: GABAPENTIN 300 MG CAP PO SCH ×3 (08:47→21:09)
[2022-10-06] MEDS ORDERED: CYCLOBENZAPRINE 10 MG TAB PO SCH (09:00)
--- NOTE | 2022-10-06 10:07 | CDI ---
Documentation Clarification Form Date: 10/06/2022 9:44:48 AM From: Candelaria Kenyon RN CCDS Phone: [phone] Admit Date: 10/04/2022 5:35:00 AM Patient Name: Natalie Woodard Visit Number: [id number] Discharge Date: ATTENTION: The Clinical Documentation Specialists (CDI) and [facility] Coding Staff appreciate your assistance in clarifying documentation. Please respond to the clarification below the line at the bottom and electronically sign. The CDI & [facility] Coding staff will review the response and follow-up if needed. Please note: Queries are made part of the Legal Health Record. If you have any questions, please contact the author of this message via ITS. Dr. Frantz Loza Postoperative hypotension is documented 10/05, Pulmonary consult and patient had Revision [id number] decompression and fusion, 10/04. Additional clarification is requested regarding the relationship, if any, that exists between the diagnosis and the procedure. Patients Admitting Diagnosis: Spondylolisthesis, kyphosis, stenosis and radiculopathy Post-Operative Diagnosis: Spondylolisthesis, kyphosis, stenosis and radiculopathy Procedure performed: [id number] decompression and fusion History/Risk Factors: 72-year-old female presents for elective Revision T10- pelvis decompression and fusion. Medical History: Chronic low back pain, L4-5 decompression and fusion, COPD, HLD, OA, Anemia and current smoker. Clinical Indicators: 10/04, VVS: B/P 73/51, HR 97, Temp 97.5 F Temporal, RR 16, SpO2 100% 6L simple mask 10/04, Event note: Hgb 7.6 intra op with estimated blood loss 900cc 10/04, Lab Hgb 8.2 after transfusion. 10/04, Pulmonary consult: The patient was also hypotensive postoperatively, and was given 1 unit, PRBC.Phenylephrine was temporarily use for blood pressure support. Treatment: Treatment: 10/04 1 Unit PRBC, Albumin Human 5% 250ml IVPB, Phenylephrirne HCI 245mls IV, ICU admission, Albumin Human 5% 250ml IVPB. ICU admission. Consults: Pulmonary see above What relationship, if any, exists between the diagnosis of [insert dx] and the procedure: [ ] Postoperative hypotension is a complication of surgical procedure [ ] Postoperative hypotension is related to patients co-morbid condition(s) of [insert co-morbid dxs] & not a complication of the procedure [ ] Other please specify ____ [ ] Unable to determine (Template Last Revised: August 2020) Post operative hypotension is related to the patients co-morbid conditions of COBD, Anemia, Smoker, along with ABLA due to large surgical procedure. The patient was cared for appropriately. KASI
--- NOTE | 2022-10-06 10:32 | CDI ---
Documentation Clarification Form Date: 10/06/2022 8:47:00 AM From: Candelaria Kenyon RN CCDS Phone: [phone] Admit Date: 10/04/2022 5:35:00 AM Patient Name: Natalie Woodard Visit Number: [id number] Discharge Date: ATTENTION: The Clinical Documentation Specialists (CDI) and [facility] Coding Staff appreciate your assistance in clarifying documentation. Please respond to the clarification below the line at the bottom and electronically sign. The CDI & [facility] Coding staff will review the response and follow-up if needed. Please note: Queries are made part of the Legal Health Record. If you have any questions, please contact the author of this message via ITS. Dr. Isabell Miguel Hypotension is documented Pulmonary consult, 10/05. Additional clarification is requested. History/Risk Factors: 72-year-old female presents for elective Revision T10- pelvis decompression and fusion. Medical History: Chronic low back pain, L4-5 decompression and fusion, COPD, HLD, OA, Anemia and current smoker with home oxygen. Clinical Indicators: 10/04 14:11, VVS: B/P 73/51, HR 97, Temp 97.5 F Temporal, RR 16, SpO2 100% 6L simple mask 10/04 14:15 VVS: B/P 73/51, HR 94, RR 16, SpO2 100% 6L simple mask 10/04 14:30 VSS: B/P 101/54, HR 100, RR 16 SpO2 100% 6L simple mask 10/04 14:35 VSS: B/P 94/49, HR 100, RR 16, SpO2 100% 6L simple mask 10/04 15:46 VSS: B/P 141/62, HR 91, RR 16; SpO2 100% 6L simple mask 10/04, Event note: Hgb 7.6 intra op with estimated blood loss 900cc 10/04, Lab Hgb 8.2 after transfusion. 10/04, Pulmonary consult: The patient was also hypotensive postoperatively, and was given 1 unit, PRBC.Phenylephrine was temporarily use for blood pressure support. Treatment: Treatment: Treatment: 10/04 1 Unit PRBC, Albumin Human 5% 250ml IVPB, Phenylephrirne HCI 245mls IV, ICU admission, Albumin Human 5% 250ml IVPB. ICU admission. Please clarify the type of shock, if known: [ ] Hypovolemic Shock [ ] Shock ruled out [x ] Other, please specify [ ] Unable to determine (Template Last Revised: August 2020) MTDD
--- NOTE | 2022-10-06 12:10 | P.PN ---
Subjective Progress Note Date: 10/06/22 Principal diagnosis: Postoperative day #2 elective T10 to pelvis decompression and fusion. This was a revision from a previous L4 to L5 decompression and fusion back in 2013. I'm seeing this patient in new consultation today 10/05/2022 in regard to ICU management post T10 to pelvis decompression and fusion. Patient is a 72-year-old white female with past medical history significant for lumbar spondylosis, previous L4 to L5 decompression and fusion, COPD, chronic oxygen de pendence at night with 2 L nasal cannula, current [id number] smoker. Patient was brought in yesterday for an elective T10 to pelvis decompression and fusion with Dr. Loza. Patient was extubated to BiPAP in recovery. Apparently, the patient was hypoventilatory and had poor tidal volumes. Most recent ABG shows a pO2 of 158, pCO2 of 50, pH of 7.32. The patient was also hypotensive postoperatively, and was given 1 unit PRBC. Phenylephrine was temporarily use for blood pressure support. Patient was transferred to the intensive care unit. Patient is currently resting in bed, on 4 L nasal cannula, in no acute distress. She is alert, oriented, and responds to questions appropriately. Her BiPAP is on standby. She is able to move all extremities equally, and no focal neurological deficits were noted. Denies saddle anesthesia, bowel or bladder incontinence. Postoperative chest x-ray showed chronic changes without evidence of acute cardiopulmonary disease. There was a right IJ central venous triple- lumen catheter with the distal tip overlying the superior vena cava. There are 2 Hemovacs draining serosanguineous output, with a total of 150 ML's output since surgery. Most recent CBC shows a WBC count of 7.7, hemoglobin 8.2, hematocrit 26.3, platelets 200,000. Patient's BMP was essentially within normal limits. Vital signs are stable. Reevaluated today on 10/06/2022, patient remains in the ICU as an overflow, she is sitting in a bedside chair, doing well, on 3 L nasal cannula. Patient has some postoperative pain, otherwise she is asymptomatic. Denies any cough whee zing or shortness of breath. WBC count today 17.1 hemoglobin is 8.0. Basic metabolic profile is normal, renal profile is normal thoracolumbar spine x-rays done yesterday showed postsurgical changes without evidence of hardware failure spinal canal and neural foramen appeared patent. Patient is now on overflow in the ICU, and I plan to schedule the patient to a surgical floor Objective - Vital Signs Vital signs: Vital Signs Temp 98.4 F 10/06/22 08:00 Pulse 85 10/06/22 11:30 Resp 16 10/06/22 08:00 BP 129/62 10/06/22 08:00 Pulse Ox 97 10/06/22 08:00 FiO2 4 10/05/22 00:00 Intake & Output 10/05/22 10/06/22 10/06/22 18:59 06:59 18:59 Intake Total 1380 125 Output Total 520 1255 Balance 860 -1130 Intake: IV 880 125 Sodium Chloride 0.9% 1, 880 125 000 ml @ 75 mls/hr IV . [id number] EGDAR Rx#:[id number] Oral 500 Output: Drainage 80 255 Lower Back 80 200 Upper Back 0 55 Urine 440 1000 Stool 0 Other: Voiding Method Indwelling Catheter Toilet Toilet # Voids 1 ABP, PAP, CO, CI - Last Documented Arterial Blood Pressure 118/56 - Exam Physical Exam: Revealed 72-year-old female in no distress, on 3 L nasal cannula Head: Atraumatic, normocephalic. HEENT:[Neck is supple.] [No neck masses.] [No thyromegaly.] [No JVD.] Chest: [Diminished breath sound bilaterally no crackles or rhonchi or wheezes Cardiac Exam: [Normal S1 and S2, no S3 gallop, no murmur.] Abdomen: [Soft, nontender, no megaly, no rebound, no guarding, normal bowel sounds.] Extremities: [No clubbing, no edema, no cyanosis.] Neurological Exam: Refer to surgical note regarding surgical site in thoracolumbar spine area. - Labs CBC & Chem 7: 10/06/22 05:25 10/06/22 03:32 Labs: Abnormal Lab Results - Last 24 Hours (Table) 10/06/22 10/06/22 Range/Units 03:32 05:25 WBC 17.1 H (3.8-10.6) k/uL RBC 2.51 L (3.80-5.40) m/uL Hgb 8.0 L (11.4-16.0) gm/dL Hct 24.4 L (34.0-46.0) % RDW 17.7 H (11.5-15.5) % Neutrophils # 15.1 H (1.3-7.7) k/uL Lymphocytes # 0.6 L (1.0-4.8) k/uL Sodium 135 L (137-145) mmol/L Creatinine 0.28 L (0.52-1.04) mg/dL Glucose 128 H (74-99) mg/dL Calcium 7.8 L (8.4-10.2) mg/dL AST 84 H (14-36) U/L ALT 110 H (4-34) U/L Total Protein 5.3 L (6.3-8.2) g/dL Albumin 2.7 L (3.5-5.0) g/dL Assessment and Plan Assessment: Postoperative day #2 elective T10 to pelvis decompression and fusion. This was a revision from a previous L4 to L5 decompression and fusion back in 2013. Acute on chronic hypoxic and hypercapnic respiratory failure. Patient did require BiPAP postoperatively, and is currently on 4 L nasal cannula. Patient does normally utilize 2 L/m nasal cannula at night. Postoperative hypotension, this is most likely multifactorial, related to anesthetic and pain medication given in the OR, also related to hypovolemia, this is expected. Acute blood loss anemia, status post transfusion of 1 unit PRBC Acute COPD exacerbation, presently under control. Lumbar spondylosis and radiculopathy Chronic nicotine dependence Hyperlipidemia Plan: Transfer patient out of the ICU to a medical surgical floor Continue bronchodilators, discontinue Solu-Medrol. Continue Symbicort Wean FiO2 as tolerated Use BiPAP as needed Pain management, as per surgical team on the case. We will continue to follow regarding her COPD Time with Patient: Less than 30
[2022-10-06] MEDS: tiZANidine 4 MG TAB PO SCH ×2 (14:04→21:09)
[2022-10-07] MEDS: methylPREDNISolone SOD SUCCI 125 MG/2 ML VIAL IV SCH ×2 (00:29→06:53)
[2022-10-07] MEDS: HYDROcodone/APAP 10-325MG 1 EACH TAB PO PRN ×5 (01:07→22:32)
[2022-10-07 04:20] LABS: ALT 78 U/L (4-34); AST 45 U/L (14-36); African American GFR (CKD) >90 (>60 ml/min/1.73 sqM); Alkaline Phosphatase 71 U/L (38-126); Anion Gap 3 mmol/L; Blood Urea Nitrogen 13 mg/dL (7-17); Calcium 8.6 mg/dL (8.4-10.2); Carbon Dioxide 29 mmol/L (22-30); Chloride 107 mmol/L (98-107); Glucose 118 mg/dL (74-99); Non-African American GFR(CKD) >90 (>60 ml/min/1.73 sqM); Sodium 139 mmol/L (137-145); Total Bilirubin 0.5 mg/dL (0.2-1.3); Total Protein 5.5 g/dL (6.3-8.2)
[2022-10-07 04:23] LABS: Potassium 4.2 mmol/L (3.5-5.1)
[2022-10-07 04:25] LABS: Anisocytosis Slight; Basophils % (A) 0 %; Eosinophils % (A) 0 %; HCT 24.2 % (34.0-46.0); HGB 7.7 gm/dL (11.4-16.0); Hypochromasia Slight; Lymphocytes # (A) 0.6 k/uL (1.0-4.8); Lymphocytes % (A) 5 %; MCH 31.6 pg (25.0-35.0); MCHC 31.8 g/dL (31.0-37.0); MCV 99.3 fL (80.0-100.0); Macrocytosis Slight; Mean Platelet Volume 9.2; Monocytes # (A) 0.6 k/uL (0-1.0); Monocytes % (A) 5 %; Neutrophils # (A) 11.1 k/uL (1.3-7.7); Neutrophils % (A) 89 %; Platelet Count 252 k/uL (150-450); RBC 2.43 m/uL (3.80-5.40); RDW 17.2 % (11.5-15.5); WBC 12.5 k/uL (3.8-10.6)
--- NOTE | 2022-10-07 04:48 | CONS ---
CONSULTATION HISTORY OF PRESENT ILLNESS: A 72-year-old white female in medical consult. The patient still remains in ICU, status post orthopedic surgery. The patient was administered on a BiPAP post surgery. She is set up in a chair on 3 L of nasal cannula postoperative. Denies any wheezing. White blood count of 17, hemoglobin 8. Renal function is normal. She had a repeat CAT scan of her hardware in the lumbar spine, which is good. PHYSICAL EXAMINATION: VITAL SIGNS: Blood pressure 120s over 60s, temp 98.4, pulse 85, respiratory rate 16 to 18, O2 of 97% on 4 L. CARDIOVASCULAR: S1, S2. LUNGS: Transmitted upper sounds. HEMATOLOGY: Negative for Homans. PSYCH: Fair mood and affect. NEUROLOGIC: Alert and oriented x3. OPHTHALMOLOGIC: Pupils equal, round, reactive. LABORATORY DATA: White count 17.1, hemoglobin is 8, sodium 135. ASSESSMENT: She is postoperative T10 to pelvis decompression, chronic hypoxic hypercapnic respiratory failure. She was on BiPAP now. She is on 4 to 3 L. Continue at 2 L at night. Postoperative hypotension, blood loss anemia, chronic obstructive pulmonary disease, lumbar spondylosis, nicotine addiction, dyslipidemia, much better. Continue her inhaler with a Symbicort. Wean FiO2. BiPAP as needed. Prognosis guarded. Continue pain control. MMODL / IJN: [id number] /
--- NOTE | 2022-10-07 07:43 | P.PN ---
Subjective Progress Note Date: 10/07/22 Principal diagnosis: 1. 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 Grade 1 retrolisthesis L2-L3 5. Status post L4-L5 decompression and fusion 6. Right lower extremity radiculopathy 7. lower extremity weakness 8. neurogenic claudication 9. low back pain Patient seen and examined this morning. Patient is currently sitting up in chair at bedside. Pateint reports she has been sleeping in chair due to the bed being uncomfortable. She is wearing TLSO brace this morning, tolerating well. Patient states that her pain is currently managed on regimen. Surgical dressing of the thoracolumbar spine is clean dry and intact. Upper Hemovac remains intact with an output of 120 mL overnight. Encouraged patient to continue to continue to work with PT and to use her incentive spirometer. veterinary radiologist RN reports that patient has been ambulatory to restroom with standby assistance and performing activity well. Patient has been afebrile, denies nausea/vomiting, or chest pain. Objective - Vital Signs Vital signs: Vital Signs Temp 98.1 F 10/07/22 02:00 Pulse 72 10/07/22 02:00 Resp 16 10/06/22 20:00 BP 118/64 10/07/22 02:00 Pulse Ox 96 10/07/22 02:00 FiO2 4 10/05/22 00:00 Intake & Output 10/06/22 10/07/22 10/07/22 18:59 06:59 18:59 Intake Total 300 Output Total 150 720 Balance -150 -420 Intake: Oral 300 Output: Drainage 150 120 Lower Back 150 120 Urine 600 Other: Voiding Method Toilet Toilet # Voids 2 ABP, PAP, CO, CI - Last Documented Arterial Blood Pressure 118/56 - Exam Patient is alert and oriented 3 appears well-nourished well-hydrated is in no acute distress. They do not appear septic. On exam the patient has moderate tenderness to palpation of her thoracic and lumbar spine. There is no edema or ballottement sign. Patient has a surgical incision to the thoracolumbar region with x2 hemovacs present and patent with 150ml output overnight. Upper hemovac has been removed. Surgical dressing is CDI. Lower extremities with 4/5 strength in all major muscle groups Upper extremities show 5/5 strength in all major muscle groups. 2/4DTR all UE and LE b/l Patient shows a negative Homans, Dalal's, negative Babinski's negative clonus bilaterally. Negative straight leg raise bilaterally. No tensioning signs. Cranial nerves II through XII are grossly intact. There is FROM of the bilateral upper extremities and ROM of the bilateral lower extremities that is limited to pain and stiffness from recent surgery. They are intact to light touch sensation in L2 to S1 nerve distribution. Patient has palpable dorsalis pedis was posterior tibial pulses. Compartments are soft and compressible. - Labs CBC & Chem 7: 10/07/22 03:42 10/07/22 03:42 Labs: Abnormal Lab Results - Last 24 Hours (Table) 10/07/22 10/07/22 Range/Units 03:42 03:42 WBC 12.5 H (3.8-10.6) k/uL RBC 2.43 L (3.80-5.40) m/uL Hgb 7.7 L (11.4-16.0) gm/dL Hct 24.2 L (34.0-46.0) % RDW 17.2 H (11.5-15.5) % Neutrophils # 11.1 H (1.3-7.7) k/uL Lymphocytes # 0.6 L (1.0-4.8) k/uL Creatinine 0.32 L (0.52-1.04) mg/dL Glucose 118 H (74-99) mg/dL AST 45 H (14-36) U/L ALT 78 H (4-34) U/L Total Protein 5.5 L (6.3-8.2) g/dL Albumin 3.0 L (3.5-5.0) g/dL Assessment and Plan Assessment: Postop day 3: Revision [id number] decompression and fusion Acute on chronic hypoxic and hypercapnic respiratory failure. Postoperative hypotension, resolved Post-Op anemia T12 VCF 25 degree kyphosis L2-3, L3-4 lateral lithesis L2-3, L3-4 Spondylosis, spondylolisthesis and stenosis Grade 1 retrolisthesis L2-L3 Status post L4-L5 decompression and fusion Right lower extremity radiculopathy Bilateral lower extremity weakness Plan: -Appreciate library consultant and team management. -Continue to monitor labs; Hgb -Activity: Ambulate QID, OOB all meals, up and about, limit lifting bending twisting to less than 5 lbs. Use walker or cane if needed for stability. -Daily PT/OT, increase ambulation strength and balance. -TLSO Brace when up and about, not needed in bed or chair -Pain control: Adequate at this time -Meds: reviewed -GI ppx: senna, Miralax -DVT PPX: heparin -Hygiene: Shower today. Maintain dressing clean and dry. Meticulous cleaning after BMs away from the incision site -Drains: Maintain for now. Continue to record output every shift -Encourage IS 10x/hr -Dispo: Anticipate discharge within the next 1-2 days *I reviewed and discussed this case with my attending Dr. Loza, whom has reviewed this chart and films and is in agreement with assessment and plan of care as outlined above. I have personally seen and examined the patient, performed the documentation and the assessment and plan as written. Number of minutes spent on the visit: 15m.
[2022-10-07] MEDS: SYMBICORT 160-4.5 MCG INHALER INHALATION SCH ×2 (08:11→21:50)
[2022-10-07] MEDS: IPRATROPIUM-ALBUTEROL 3 ML NEB INHALATION SCH ×5 (08:11→21:50)
[2022-10-07] MEDS: tiZANidine 4 MG TAB PO SCH ×2 (08:31→22:29)
[2022-10-07] MEDS: GABAPENTIN 300 MG CAP PO SCH ×3 (08:31→22:30)
--- NOTE | 2022-10-07 10:43 | CA ---
Transthoracic Echo Report Name: Natalie Woodard Age: 72 Gender: F : 1950 Exam Date: 10/06/2022 10:06 Exam Location: [place] [facility] Ht (in): 62 Wt (lb): 132 Ordering Physician: Rock Clemens MD Attending/Referring Phys: Blending Tank Tender Helper Hue Pollack RDCS Procedure CPT: Indications: pulm htn Cardiac Hx: Technical Quality: Good Contrast 1: Total Dose (mL): Contrast 2: Total Dose (mL): MEASUREMENTS (Male / Female) Normal Values 2D ECHO LV Diastolic Diameter PLAX 4.1 cm 4.2 - 5.9 / 3.9 - 5.3 cm LV Systolic Diameter PLAX 1.6 cm IVS Diastolic Thickness 1.1 cm 0.6 - 1.0 / 0.6 - 0.9 cm LVPW Diastolic Thickness 1.1 cm 0.6 - 1.0 / 0.6 - 0.9 cm LV Relative Wall Thickness 0.5 RV Internal Dim ED PLAX 2.1 cm LA Systolic Diameter LX 2.7 cm 3.0 - 4.0 / 2.7 - 3.8 cm LA Volume 42.6 cm??? 18 - 58 / 22 - 52 cm??? M-MODE Aortic Root Diameter MM 3.2 cm MV E Point Septal Separation 0.6 cm AV Cusp Separation MM 1.5 cm DOPPLER AV Peak Velocity 268.7 cm/s AV Peak Gradient 28.9 mmHg AV Mean Velocity 170.6 cm/s AV Mean Gradient 13.3 mmHg AV Velocity Time Integral 48.0 cm AI Peak Velocity 430.1 cm/s AI Peak Gradient 74.0 mmHg AI Pressure Half Time 1022.8 ms LVOT Peak Velocity 179.4 cm/s LVOT Peak Gradient 12.9 mmHg MV Area PHT 2.5 cm??? Mitral E Point Velocity 119.2 cm/s Mitral A Point Velocity 157.5 cm/s Mitral E to A Ratio 0.8 MV Deceleration Time 300.7 ms MV E' Velocity 7.1 cm/s Mitral E to MV E' Ratio 16.9 FINDINGS Left Ventricle Left ventricular ejection fraction is estimated at 60-65 %. Left ventricular cavity size normal. Mildly increased septal wall thickness. Mildly increased posterior wall thickness. Normal left ventricular wall motion. Right Ventricle Normal right ventricular size and function. No TR unable to estimate the right ventricular systolic pressure. Right Atrium Normal right atrial size. Left Atrium Normal left atrial size. Mitral Valve Mitral valve thickened. Mild mitral annular calcification. No mitral stenosis, regurgitation or prolapse. Aortic Valve Focal thickening of the aortic valve cusps. Mild aortic stenosis with a peak gradient of 29 mmHg and a mean gradient of 13 mmHg. Mild aortic regurgitation. Tricuspid Valve Structurally normal tricuspid valve. No tricuspid regurgitation. Pulmonic Valve Pulmonic valve not well visualized. Pericardium Normal pericardium. No pericardial effusion. Aorta Normal size aortic root and proximal ascending aorta. CONCLUSIONS Normal LV systolic function Aortic sclerosis with mild aortic stenosis and mean gradient of 13 mmHg and mild aortic insufficiency Previewed by: Dr. Chris Powell MD (Electronically Signed) Final Date: 07 October 2022 10:42
--- NOTE | 2022-10-07 11:41 | P.PN ---
Subjective Progress Note Date: 10/07/22 Principal diagnosis: Postoperative day #3 elective T10 to pelvis decompression and fusion. I'm seeing this patient in new consultation today 10/05/2022 in regard to ICU management post T10 to pelvis decompression and fusion. Patient is a 72-year-old white female with past medical history significant for lumbar spondylosis, previous L4 to L5 decompression and fusion, COPD, chronic oxygen dependence at night with 2 L nasal cannula, current 83-[id number]-[id number] smoker. Patient was brought in yesterday for an elective T10 to pelvis decompression and fusion with Dr. Loza. Patient was extubated to BiPAP in recovery. Apparently, the patient was hypoventilatory and had poor tidal volumes. Most recent ABG shows a pO2 of 158, pCO2 of 50, pH of 7.32. The patient was also hyp otensive postoperatively, and was given 1 unit PRBC. Phenylephrine was temporarily use for blood pressure support. Patient was transferred to the intensive care unit. Patient is currently resting in bed, on 4 L nasal cannula, in no acute distress. She is alert, oriented, and responds to questions appropriately. Her BiPAP is on standby. She is able to move all extremities equally, and no focal neurological deficits were noted. Denies saddle anesthesia, bowel or bladder incontinence. Postoperative chest x-ray showed chronic changes without evidence of acute cardiopulmonary disease. There was a right IJ central venous triple-lumen catheter with the distal tip overlying the superior vena cava. There are 2 Hemovacs draining serosanguineous output, with a total of 150 ML's output since surgery. Most recent CBC shows a WBC count of 7.7, hemoglobin 8.2, hematocrit 26.3, platelets 200,000. Patient's BMP was essentially within normal limits. Vital signs are stable. Reevaluated today on 10/06/2022, patient remains in the ICU as an overflow, she is sitting in a bedside chair, doing well, on 3 L nasal cannula. Patient has some postoperative pain, otherwise she is asymptomatic. Denies any cough wheezing or shortness of breath. WBC count today 17.1 hemoglobin is 8.0. Basic metabolic profile is normal, renal profile is normal thoracolumbar spine x-rays done yesterday showed postsurgical changes without evidence of hardware failure spinal canal and neural foramen appeared patent. Patient is now on overflow in the ICU, and I plan to schedule the patient to a surgical floor Reevaluated today on 09/29/2022, patient remains in the ICU as an overflow. Sitting up in chair at bedside, pain seems to be relatively controlled. Her surgical dressing of thoracolumbar spine noted to be clean and dry as noted by surgery. Upper Hemovac remains intact and had an output of 120 ML overnight. Patient is compliant with her incentive spirometer. No major issues in the last 24 hours. She is on 3 L nasal cannula, O2 saturations 98% labs today showed WBC count of 12.5 hemoglobin is 7.7, her electrolytes are normal renal profile is normal. Objective - Vital Signs Vital signs: Vital Signs Temp 97.6 F 10/07/22 08:00 Pulse 82 10/07/22 08:25 Resp 16 10/06/22 20:00 BP 150/68 10/07/22 08:00 Pulse Ox 98 10/07/22 08:00 FiO2 4 10/05/22 00:00 Intake & Output 10/06/22 10/07/22 10/07/22 18:59 06:59 18:59 Intake Total 300 Output Total 150 720 600 Balance -150 -420 -600 Intake: Oral 300 Output: Drainage 150 120 Lower Back 150 120 Urine 600 600 Other: Voiding Method Toilet Toilet Toilet # Voids 2 ABP, PAP, CO, CI - Last Documented Arterial Blood Pressure 118/56 - Exam Physical Exam: Revealed 72-year-old female in no distress, on 3 L nasal cannula Head: Atraumatic, normocephalic. HEENT:[Neck is supple.] [No neck masses.] [No thyromegaly.] [No JVD.] Chest: [Diminished breath sound bilaterally no crackles or rhonchi or wheezes Cardiac Exam: [Normal S1 and S2, no S3 gallop, no murmur.] Abdomen: [Soft, nontender, no megaly, no rebound, no guarding, normal bowel sounds.] Extremities: [No clubbing, no edema, no cyanosis.] Neurological Exam: No gross focal deficits Psychiatric: Normal mood affect and normal mental status examination. - Labs CBC & Chem 7: 10/07/22 03:42 10/07/22 03:42 Labs: Abnormal Lab Results - Last 24 Hours (Table) 10/07/22 10/07/22 Range/Units 03:42 03:42 WBC 12.5 H (3.8-10.6) k/uL RBC 2.43 L (3.80-5.40) m/uL Hgb 7.7 L (11.4-16.0) gm/dL Hct 24.2 L (34.0-46.0) % RDW 17.2 H (11.5-15.5) % Neutrophils # 11.1 H (1.3-7.7) k/uL Lymphocytes # 0.6 L (1.0-4.8) k/uL Creatinine 0.32 L (0.52-1.04) mg/dL Glucose 118 H (74-99) mg/dL AST 45 H (14-36) U/L ALT 78 H (4-34) U/L Total Protein 5.5 L (6.3-8.2) g/dL Albumin 3.0 L (3.5-5.0) g/dL Assessment and Plan Assessment: Postoperative day #3, elective T10 to pelvis decompression and fusion. This was a revision from a previous L4 to L5 decompression and fusion back in 2013. Acute on chronic hypoxic and hypercapnic respiratory failure. Patient did require BiPAP postoperatively, and is currently on 4 L nasal cannula. Patient does normally utilize 2 L/m nasal cannula at night. Postoperative hypotension, this is most likely multifactorial, related to anesthetic and pain medication given in the OR, also related to hypovolemia, this is expected. And has resolved Acute blood loss anemia, status post transfusion of 1 unit PRBC Acute COPD exacerbation, presently under control. Lumbar spondylosis and radiculopathy Chronic nicotine dependence Hyperlipidemia Plan: Continue incentive spirometry Continue bronchodilators, Continue Symbicort Cut down Solu-Medrol and eventually transitioned to a Medrol Dosepak Wean FiO2 as tolerated Use BiPAP as needed Pain management, as per surgical team on the case. We will continue to follow regarding her COPD Time with Patient: Less than 30
[2022-10-07] MEDS: methylPREDNISolone SOD SUCCI 40 MG/ML 1 ML VIAL IV SCH (22:30)
[2022-10-08] MEDS: HYDROcodone/APAP 10-325MG 1 EACH TAB PO PRN (04:29)
[2022-10-08 05:35] LABS: Anisocytosis Slight; Basophils % (A) 0 %; Eosinophils # (A) 0.1 k/uL (0-0.7); Eosinophils % (A) 1 %; HCT 24.3 % (34.0-46.0); HGB 7.9 gm/dL (11.4-16.0); Hypochromasia Slight; Lymphocytes # (A) 2.1 k/uL (1.0-4.8); Lymphocytes % (A) 24 %; MCH 32.3 pg (25.0-35.0); MCHC 32.6 g/dL (31.0-37.0); MCV 99.3 fL (80.0-100.0); Macrocytosis Slight; Mean Platelet Volume 7.8; Monocytes # (A) 0.5 k/uL (0-1.0); Monocytes % (A) 5 %; Neutrophils # (A) 6.1 k/uL (1.3-7.7); Neutrophils % (A) 69 %; Platelet Count 320 k/uL (150-450); RBC 2.45 m/uL (3.80-5.40); RDW 17.8 % (11.5-15.5); WBC 8.9 k/uL (3.8-10.6)
[2022-10-08 05:51] LABS: Potassium 2.9 mmol/L (3.5-5.1)
[2022-10-08 05:52] LABS: African American GFR (CKD) >90 (>60 ml/min/1.73 sqM); Anion Gap 5 mmol/L; Blood Urea Nitrogen 13 mg/dL (7-17); Calcium 8.1 mg/dL (8.4-10.2); Carbon Dioxide 30 mmol/L (22-30); Chloride 102 mmol/L (98-107); Glucose 79 mg/dL (74-99); Non-African American GFR(CKD) >90 (>60 ml/min/1.73 sqM); Sodium 137 mmol/L (137-145)
[2022-10-08] MEDS ORDERED: Potassium Replacement Protocol 1 EACH MISC MISCELLANE PRN (07:03)
--- NOTE | 2022-10-08 07:12 | PN ---
PROGRESS NOTE DATE OF SERVICE: 10/07/2022 I am covering for Dr. Clemens. HISTORY OF PRESENT ILLNESS: This is a 72-year-old woman who had a T10 to pelvis decompression and fusion, had hypoxia and respiratory difficulties. The patient was monitored in the ICU. At this time, the patient is feeling much better. At this time, the patient had acute on chronic hypoxic hypercarbic respiratory failure. BiPAP was required. The most recent chest x-ray which I reviewed indicated probable COPD. Dr. Miguel is following the patient closely. The patient's hemoglobin is 7.7 today. PAST MEDICAL HISTORY: Reviewed. REVIEW OF SYSTEMS: A 14-point review is negative as mentioned earlier. CURRENT MEDICATIONS: Reviewed include Neurontin and Dilaudid, and dose and rest of medication noted. PHYSICAL EXAMINATION: VITAL SIGNS: Pulse is 86, blood pressure ntd NECK: Status post surgery. BACK: Status post surgery. CARDIOVASCULAR: S1 and S2. RESPIRATORY: A few scattered rhonchi. ABDOMEN: Soft. NERVOUS SYSTEM: No focal deficits. LABORATORY FINDINGS: Reviewed. ASSESSMENT: 1. Status post T10 to pelvis decompression and fusion. 2. Acute on chronic hypoxic hypercarbic respiratory failure. 3. Anemia, multifactorial. 4. Postoperative hypotension. 5. Acute blood loss anemia. 6. Chronic obstructive pulmonary disease acute exacerbation. 7. History of nicotine dependence. 8. Hyperlipidemia. 9. Multiple medical issues. RECOMMENDATIONS: Recommend to continue current medications, continue symptomatic treatment. Continue with the bronchodilators. DVT prophylaxis. I would recommend repeat labs in the morning. Otherwise, closely follow with multiple consultants including Orthopedic Surgery and Pulmonary. Further recommendations to follow. MMODL / IJN: [id number] / MTDD
--- NOTE | 2022-10-08 07:13 | P.PN ---
Subjective Progress Note Date: 10/08/22 Principal diagnosis: 1. 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 Grade 1 retrolisthesis L2-L3 5. Status post L4-L5 decompression and fusion 6. Right lower extremity radiculopathy 7. lower extremity weakness 8. neurogenic claudication 9. low back pain Patient seen and examined this morning. Patient is currently sitting up in chair at bedside. She is wearing TLSO brace this morning, tolerating well. Patient states that her pain is currently managed on regimen when she gets her meds, medication has been scheduled. Surgical dressing of the thoracolumbar spine is clean dry and intact. Upper Hemovac remains intact without compression and an output of 200 mL overnight. Patient is very eager to get home, explained to patient that the output of her drain is too high to pull the drain. Patient verbalizes understanding. Patient has been afebrile, denies nausea/vomiting, or chest pain. Objective - Vital Signs Vital signs: Vital Signs Temp 98.1 F 10/08/22 00:53 Pulse 89 10/08/22 00:53 Resp 17 10/08/22 00:53 BP 93/53 10/08/22 00:53 Pulse Ox 96 10/08/22 00:53 FiO2 4 10/05/22 00:00 Intake & Output 10/07/22 10/08/22 10/08/22 18:59 06:59 18:59 Output Total 600 200 Balance -600 -200 Output: Drainage 200 Lower Back 200 Urine 600 Stool 0 Other: Voiding Method Toilet Toilet # Voids 4 2 ABP, PAP, CO, CI - Last Documented Arterial Blood Pressure 118/56 - Exam Patient is alert and oriented 3 appears well-nourished well-hydrated is in no acute distress. They do not appear septic. On exam the patient has moderate tenderness to palpation of her thoracic and lumbar spine. There is no edema or ballottement sign. Patient has a surgical incision to the thoracolumbar region with hemovac present and patent with 200ml output overnight. Surgical dressing is CDI. Lower extremities with 4/5 strength in all major muscle groups Upper extremities show 5/5 strength in all major muscle groups. 2/4DTR all UE and LE b/l Patient shows a negative Homans, Dalal's, negative Babinski's negative clonus bilaterally. Negative straight leg raise bilaterally. No tensioning signs. Cranial nerves II through XII are grossly intact. There is FROM of the bilateral upper extremities and ROM of the bilateral lower extremities that is limited to pain and stiffness from recent surgery. They are intact to light touch sensation in L2 to S1 nerve distribution. Patient has palpable dorsalis pedis was posterior tibial pulses. Compartments are soft and compressible. - Labs CBC & Chem 7: 10/08/22 05:19 10/08/22 05:19 Labs: Abnormal Lab Results - Last 24 Hours (Table) 10/08/22 10/08/22 Range/Units 05:19 05:19 RBC 2.45 L (3.80-5.40) m/uL Hgb 7.9 L (11.4-16.0) gm/dL Hct 24.3 L (34.0-46.0) % RDW 17.8 H (11.5-15.5) % Potassium 2.9 L (3.5-5.1) mmol/L Creatinine 0.39 L (0.52-1.04) mg/dL Calcium 8.1 L (8.4-10.2) mg/dL Assessment and Plan Assessment: Postop day 4: Revision [id number] decompression and fusion Acute on chronic hypoxic and hypercapnic respiratory failure. Postoperative hypotension, resolved Post-Op anemia T12 VCF 25 degree kyphosis L2-3, L3-4 lateral lithesis L2-3, L3-4 Spondylosis, spondylolisthesis and stenosis Grade 1 retrolisthesis L2-L3 Status post L4-L5 decompression and fusion Right lower extremity radiculopathy Bilateral lower extremity weakness Plan: -Appreciate merchandising consultant and team management. -Continue to monitor labs; Hgb 7.9 ordered ferrous sulfate, Potassium 2.9 ordered potassium replacement protocol -Activity: Ambulate QID, OOB all meals, up and about, limit lifting bending twisting to less than 5 lbs. Use walker or cane if needed for stability. -Daily PT/OT, increase ambulation strength and balance. -TLSO Brace when up and about, not needed in bed or chair -Pain control: Adequate at this time -Meds: reviewed -GI ppx: senna, Miralax -DVT PPX: heparin -Hygiene: Shower today. Maintain dressing clean and dry. Meticulous cleaning after BMs away from the incision site -Drains: Maintain for now at gravity, no compression. Continue to record output every shift -Encourage IS 10x/hr -Dispo: Anticipate discharge within the next 1-2 days. *I reviewed and discussed this case with my attending Dr. Loza, whom has reviewed this chart and films and is in agreement with assessment and plan of care as outlined above. I have personally seen and examined the patient, performed the documentation and the assessment and plan as written. Number of minutes spent on the visit: 15m.
[2022-10-08] MEDS: SYMBICORT 160-4.5 MCG INHALER INHALATION SCH ×2 (07:56→20:05)
[2022-10-08] MEDS: IPRATROPIUM-ALBUTEROL 3 ML NEB INHALATION SCH ×4 (07:56→20:05)
[2022-10-08] MEDS ORDERED: POTASSIUM CHLORIDE ER 20 MEQ TAB.ER PO SCH (08:00)
[2022-10-08] MEDS: SENNOSIDES-DOCUSATE SODIUM 1 EACH TAB PO SCH (08:42)
[2022-10-08] MEDS: GABAPENTIN 300 MG CAP PO SCH ×3 (08:42→21:39)
[2022-10-08] MEDS: FERROUS SULFATE 325 MG TAB PO SCH ×2 (08:42→16:26)
[2022-10-08] MEDS: HYDROcodone/APAP 10-325MG 1 EACH TAB PO SCH ×4 (08:42→20:25)
[2022-10-08] MEDS: methylPREDNISolone SOD SUCCI 40 MG/ML 1 ML VIAL IV SCH (08:43)
[2022-10-08] MEDS: POTASSIUM CHLORIDE ER 10 MEQ TAB.ER.PRT PO SCH ×2 (09:59→10:00)
[2022-10-08] MEDS: tiZANidine 4 MG TAB PO SCH ×2 (10:00→20:25)
--- NOTE | 2022-10-08 13:20 | P.PN ---
Subjective Progress Note Date: 10/08/22 I'm seeing this patient in new consultation today 10/05/2022 in regard to ICU management post T10 to pelvis decompression and fusion. Patient is a 72-year-old white female with past medical history significant for lumbar spondylosis, previous L4 to L5 decompression and fusion, COPD, chronic oxygen dependence at night with 2 L nasal cannula, current [id number] smoker. Patient was brought in yesterday for an elective T10 to pelvis decompression and fusion with Dr. Loza. Patient was extubated to BiPAP in recovery. Apparently, the patient was hypoventilatory and had poor tidal volumes. Most recent ABG shows a pO2 of 158, pCO2 of 50, pH of 7.32. The patient was also hypotensive postoperatively, and was given 1 unit PRBC. Phenylephrine was temporarily use for blood pressure support. Patient was transferred to the intensive care unit. Patient is currently resting in bed, on 4 L nasal cannula, in no acute distress. She is alert, oriented, and responds to questions appropriately. Her BiPAP is on standby. She is able to move all extremities equally, and no focal neurological deficits were noted. Denies saddle anesthesia, bowel or bladder incontinence. Postoperative chest x-ray showed chronic changes without evidence of acute cardiopulmonary disease. There was a right IJ central venous triple-lumen catheter with the distal tip overlying the superior vena cava. There are 2 Hemovacs draining serosanguineous output, with a total of 150 ML's output since surgery. Most recent CBC shows a WBC count of 7.7, hemoglobin 8.2, hematocrit 26.3, platelets 200,000. Patient's BMP was essentially within normal limits. Vital signs are stable. Reevaluated today on 10/06/2022, patient remains in the ICU as an overflow, she is sitting in a bedside chair, doing well, on 3 L nasal cannula. Patient has some postoperative pain, otherwise she is asymptomatic. Denies any cough wheezing or shortness of breath. WBC count today 17.1 hemoglobin is 8.0. Basic metabolic profile is normal, renal profile is normal thoracolumbar spine x-rays done yesterday showed postsurgical changes without evidence of hardware failure spinal canal and neural foramen appeared patent. Patient is now on overflow in the ICU, and I plan to schedule the patient to a surgical floor Reevaluated today on 09/29/2022, patient remains in the ICU as an overflow. Sitting up in chair at bedside, pain seems to be relatively controlled. Her surgical dressing of thoracolumbar spine noted to be clean and dry as noted by surgery. Upper Hemovac remains intact and had an output of 120 ML overnight. Patient is compliant with her incentive spirometer. No major issues in the last 24 hours. She is on 3 L nasal cannula, O2 saturations 98% labs today showed WBC count of 12.5 hemoglobin is 7.7, her electrolytes are normal renal profile is normal. The patient is seen today 10/08/2022 in follow-up on the regular medical floor. She is currently sitting up at the bedside. Awake and alert in no acute distress. No shortness of breath, cough or congestion. Maintaining good O2 saturations in the 90s on room air. No IV fluids. She is working well with the incentive spirometer. Remains on bronchodilators. Remains on IV Solu-Medrol. She is still having a significant amount of drainage from her Bj-Hanley Hemovac from her surgical site. White count 8.9. Hemoglobin 7.9. Platelets 320. Sodium 137. Potassium 2.9. Bicarb 30. BUN 13. Creatinine 0.39. Objective - Vital Signs Vital signs: Vital Signs Temp 98.9 F 10/08/22 07:26 Pulse 100 10/08/22 12:12 Resp 15 10/08/22 07:26 BP 151/74 10/08/22 07:26 Pulse Ox 98 10/08/22 07:57 FiO2 4 10/05/22 00:00 Intake & Output 10/07/22 10/08/22 10/08/22 18:59 06:59 18:59 Output Total 600 200 300 Balance -600 -200 -300 Output: Drainage 200 Lower Back 200 Urine 600 300 Stool 0 Other: Voiding Method Toilet Toilet # Voids 4 2 ABP, PAP, CO, CI - Last Documented Arterial Blood Pressure 118/56 - Exam GENERAL EXAM: Alert, active, pleasant 72-year-old female, on room air, comfortable in no apparent distress. HEAD: Normocephalic. EYES: Normal reaction of pupils, equal size. NOSE: Clear with pink turbinates. THROAT: No erythema or exudates. NECK: No masses, no JVD. CHEST: No chest wall deformity. LUNGS: Equal air entry with no crackles, wheeze, rhonchi or dullness. CVS: S1 and S2 normal with no audible murmur, regular rhythm. ABDOMEN: No hepatosplenomegaly, normal bowel sounds, no guarding or rigidity. SPINE: Surgical site of the thoracic and lumbar spine is clean and dry. Hemovac in place. 200 ML's overnight. SKIN: No rashes CENTRAL NERVOUS SYSTEM: No focal deficits, tone is normal in all 4 extremities. EXTREMITIES: There is no peripheral edema. No clubbing, no cyanosis. Peripheral pulses are intact. - Labs CBC & Chem 7: 10/08/22 05:19 10/08/22 05:19 Labs: Abnormal Lab Results - Last 24 Hours (Table) 10/08/22 10/08/22 Range/Units 05:19 05:19 RBC 2.45 L (3.80-5.40) m/uL Hgb 7.9 L (11.4-16.0) gm/dL Hct 24.3 L (34.0-46.0) % RDW 17.8 H (11.5-15.5) % Potassium 2.9 L (3.5-5.1) mmol/L Creatinine 0.39 L (0.52-1.04) mg/dL Calcium 8.1 L (8.4-10.2) mg/dL Assessment and Plan Assessment: Postoperative day #4, elective T10 to pelvis decompression and fusion. This was a revision from a previous L4 to L5 decompression and fusion back in 2013. Acute on chronic hypoxic and hypercapnic respiratory failure. Patient did require BiPAP postoperatively, and is currently on 4 L nasal cannula. Patient does normally utilize 2 L/m nasal cannula at night. Postoperative hypotension, this is most likely multifactorial, related to anesthetic and pain medication given in the OR, also related to hypovolemia, thi s is expected. And has resolved Acute blood loss anemia, status post transfusion of 1 unit PRBC Acute COPD exacerbation, presently under control. Lumbar spondylosis and radiculopathy Chronic nicotine dependence Hyperlipidemia Plan: The patient was seen and evaluated Medications and labs reviewed Currently stable and on room air Still with significant output of the ERAN Plan is to stay another day per surgical services Continued on her Symbicort and DuoNeb inhalations We will continue to follow I have personally seen and examined the patient, performed the documentation and the assessment and plan as written. Number of minutes spent on the visit: 10.
--- NOTE | 2022-10-08 15:28 | P.PN ---
Subjective Progress Note Date: 10/08/22 Patient is a 72-year-old white female with past medical history significant for lumbar spondylosis, previous L4 to L5 decompression and fusion, COPD, chronic oxygen dependence at night with 2 L nasal cannula, current [id number] smoker. Patient was brought in for an elective T10 to pelvis decompression and fusion with Dr. Loza. 10/08. Patient seen and examined. Currently sitting upright in the chair., Drain in place. No acute overnight REVIEW OF SYSTEMS: CONSTITUTIONAL: No fever, no malaise,. CARDIOVASCULAR: No chest pain, no palpitations, no syncope. PULMONARY: No shortness of breath, no cough, GASTROINTESTINAL: No diarrhea, no nausea, no vomiting, no abdominal pain. NEUROLOGICAL: No headaches, no weakness, PHYSICAL EXAMINATION: GENERAL: The patient is alert and oriented x3, not in any acute distress. Well developed, well nourished. HEENT: Pupils are round and equally reacting to light. EOMI. No scleral icterus. No conjunctival pallor. Normocephalic, atraumatic. No pharyngeal erythema. No thyromegaly. CARDIOVASCULAR: S1 and S2 present. No murmurs, rubs, or gallops. PULMONARY: Chest is clear to auscultation, no wheezing or crackles. ABDOMEN: Soft, nontender, nondistended, normoactive bowel sounds. No palpable organomegaly. MUSCULOSKELETAL: No joint swelling or deformity. EXTREMITIES: No cyanosis, clubbing, or pedal edema. NEUROLOGICAL: Gross neurological examination did not reveal any focal deficits. SKIN: No rashes. Surgical incision seen in thoracic area, drain in place Assessment and plan Status post Revision [id number] decompression and fusion Acute on chronic hypoxic and hypercapnic respiratory failure. Postoperative hypotension, resolved Post-Op anemia Acute COPD exacerbation Right lower extremity radiculopathy Bilateral lower extremity weakness Hyperlipidemia History of nicotine dependence Plan Monitor vital signs Monitor CBC Monitor CMP Continue breathing treatments Continue Symbicort Continue oxygen supplementation Continue Medrol Dosepak Continue drain management per orthopedic surgery follow up on pulmonary recommendations Objective - Vital Signs Vital signs: Vital Signs Temp 98.9 F 10/08/22 07:26 Pulse 100 10/08/22 12:12 Resp 15 10/08/22 07:26 BP 151/74 10/08/22 07:26 Pulse Ox 98 10/08/22 07:57 FiO2 4 10/05/22 00:00 Intake & Output 10/07/22 10/08/22 10/08/22 18:59 06:59 18:59 Output Total 600 200 Balance -600 -200 Output: Drainage 200 Lower Back 200 Urine 600 Stool 0 Other: Voiding Method Toilet Toilet # Voids 4 2 ABP, PAP, CO, CI - Last Documented Arterial Blood Pressure 118/56 - Labs CBC & Chem 7: 10/08/22 05:19 10/08/22 05:19 Labs: Abnormal Lab Results - Last 24 Hours (Table) 10/08/22 10/08/22 Range/Units 05:19 05:19 RBC 2.45 L (3.80-5.40) m/uL Hgb 7.9 L (11.4-16.0) gm/dL Hct 24.3 L (34.0-46.0) % RDW 17.8 H (11.5-15.5) % Potassium 2.9 L (3.5-5.1) mmol/L Creatinine 0.39 L (0.52-1.04) mg/dL Calcium 8.1 L (8.4-10.2) mg/dL
[2022-10-09] MEDS: HYDROcodone/APAP 10-325MG 1 EACH TAB PO SCH ×3 (00:27→08:04)
[2022-10-09] MEDS: FERROUS SULFATE 325 MG TAB PO SCH (06:11)
[2022-10-09 06:21] LABS: Anisocytosis Slight; HCT 24.9 % (34.0-46.0); HGB 7.9 gm/dL (11.4-16.0); MCH 31.6 pg (25.0-35.0); MCHC 31.6 g/dL (31.0-37.0); MCV 99.8 fL (80.0-100.0); Macrocytosis Slight; Mean Platelet Volume 7.7; Platelet Count 308 k/uL (150-450); RDW 17.3 % (11.5-15.5); WBC 9.7 k/uL (3.8-10.6)
[2022-10-09 06:30] LABS: African American GFR (CKD) >90 (>60 ml/min/1.73 sqM); Anion Gap 3 mmol/L; Blood Urea Nitrogen 8 mg/dL (7-17); Calcium 8.3 mg/dL (8.4-10.2); Carbon Dioxide 32 mmol/L (22-30); Chloride 103 mmol/L (98-107); Glucose 85 mg/dL (74-99); Non-African American GFR(CKD) >90 (>60 ml/min/1.73 sqM); Potassium 3.7 mmol/L (3.5-5.1); Sodium 138 mmol/L (137-145)
[2022-10-09] MEDS: SENNOSIDES-DOCUSATE SODIUM 1 EACH TAB PO SCH (08:04)
[2022-10-09] MEDS: GABAPENTIN 300 MG CAP PO SCH (08:04)
[2022-10-09] MEDS: tiZANidine 4 MG TAB PO SCH (08:05)
[2022-10-09 08:33] VITALS: BP 130/64; PULSE 95; RESP 15; TEMP 98.8
[2022-10-09] MEDS ORDERED: methylPREDNISolone 4 MG TAB TAPER PO SCH (09:00)
--- NOTE | 2022-10-09 09:03 | P.PN ---
Subjective Progress Note Date: 10/09/22 Principal diagnosis: 1. 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 Grade 1 retrolisthesis L2-L3 5. Status post L4-L5 decompression and fusion 6. Right lower extremity radiculopathy 7. lower extremity weakness 8. neurogenic claudication 9. low back pain Patient seen and examined this morning. Patient is currently sitting up in chair at bedside. She is wearing TLSO brace this morning, tolerating well. Patient states that her pain is currently managed on regimen. Surgical dressing of the thoracolumbar spine has been changed this morning 10/09/22. Upper Hemovac has been discontinued, output of 90ml overnight. Discharge instructions have be en discussed. Patient states she is ready to get home. Patient reports no acute concerns at this time. Patient has been afebrile, denies nausea/vomiting, or chest pain. Objective - Vital Signs Vital signs: Vital Signs Temp 98.8 F 10/09/22 08:10 Pulse 95 10/09/22 08:10 Resp 15 10/09/22 08:10 BP 130/64 10/09/22 08:10 Pulse Ox 99 10/09/22 08:10 FiO2 4 10/05/22 00:00 Intake & Output 10/08/22 10/09/22 10/09/22 18:59 06:59 18:59 Output Total 400 90 Balance -400 -90 Output: Drainage 100 90 Lower Back 100 90 Urine 300 Other: # Voids 3 ABP, PAP, CO, CI - Last Documented Arterial Blood Pressure 118/56 - Exam Patient is alert and oriented 3 appears well-nourished well-hydrated is in no acute distress. They do not appear septic. On exam the patient has moderate tenderness to palpation of her thoracic and lumbar spine. There is no edema or ballottement sign. Patient has a surgical incision to the thoracolumbar region that is well approximated with jose luis intact. No drainage noted. Dressing changed this morning 10/09/22 Lower extremities with 4/5 strength in all major muscle groups Upper extremities show 5/5 strength in all major muscle groups. 2/4DTR all UE and LE b/l Patient shows a negative Homans, Dalal's, negative Babinski's negative clonus bilaterally. Negative straight leg raise bilaterally. No tensioning signs. Cranial nerves II through XII are grossly intact. There is FROM of the bilateral upper extremities and ROM of the bilateral lower extremities that is limited to pain and stiffness from recent surgery. They are intact to light touch sensation in L2 to S1 nerve distribution. Patient has palpable dorsalis pedis was posterior tibial pulses. Compartments are soft and compressible. - Labs CBC & Chem 7: 10/09/22 05:53 10/09/22 05:53 Labs: Abnormal Lab Results - Last 24 Hours (Table) 10/09/22 10/09/22 Range/Units 05:53 05:53 RBC 2.50 L (3.80-5.40) m/uL Hgb 7.9 L (11.4-16.0) gm/dL Hct 24.9 L (34.0-46.0) % RDW 17.3 H (11.5-15.5) % Carbon Dioxide 32 H (22-30) mmol/L Creatinine 0.40 L (0.52-1.04) mg/dL Calcium 8.3 L (8.4-10.2) mg/dL Assessment and Plan Assessment: Postop day 5: Revision [id number] decompression and fusion Acute on chronic hypoxic and hypercapnic respiratory failure. Postoperative hypotension, resolved Post-Op anemia T12 VCF 25 degree kyphosis L2-3, L3-4 lateral lithesis L2-3, L3-4 Spondylosis, spondylolisthesis and stenosis Grade 1 retrolisthesis L2-L3 Status post L4-L5 decompression and fusion Right lower extremity radiculopathy Bilateral lower extremity weakness Plan: -Appreciate treasury management sales consultant and team management. -Labs are WNL -Activity: Ambulate QID, OOB all meals, up and about, limit lifting bending twisting to less than 5 lbs. Use walker or cane if needed for stability. -Daily PT/OT, increase ambulation strength and balance. -TLSO Brace when up and about, not needed in bed or chair -Pain control: Adequate at this time -Meds: reviewed -GI ppx: senna, Miralax -DVT PPX: heparin -Hygiene: Shower today. Maintain dressing clean and dry. Meticulous cleaning after BMs away from the incision site -Drains: Removed this morning 10/09/22 -Encourage IS 10x/hr -Dispo: Anticipate discharge today 10/09/22 *I reviewed and discussed this case with my attending Dr. Loza, whom has r eviewed this chart and films and is in agreement with assessment and plan of care as outlined above. I have personally seen and examined the patient, performed the documentation and the assessment and plan as written. Number of minutes spent on the visit: 15m.
--- NOTE | 2022-10-09 09:06 | P.DS ---
Providers Date of admission: 10/04/22 05:35 Expected date of discharge: 10/09/22 Attending physician: Frantz Loza DO Consults: 10/04/22 16:11 Consult Physician Stat Consulting Provider: Isabell Miguel Consult Reason/Comments: ICU management Do you want consulting provider notified?: Already Contacted 10/05/22 07:06 Consult Physician Routine Consulting Provider: Rock Clemens Consult Reason/Comments: medical management Do you want consulting provider notified?: Already Contacted Primary care physician: [facility] Course: Hospital Course: The patient was evaluated preoperatively and found to have the diagnosis of lumbar spondylosis with stenosis They underwent appropriate preoperative care and were willing to undergo the intended procedure. They underwent a successful revision T10 to pelvis decompression and fusion were recovered appropriately and sent to the floor. While on the floor they worked with physical therapy, occupational therapy and nursing to enhance their recovery experience. Their pain was well controlled through their stay and they were started on appropriate medications, DVT ppx modalities, activity and dietary needs. Daily labs were monitored closely, and transfusions were only used when necessary. Medicine as well as other consulting services have made their input and have helped with our team approach and multidisciplinary care. PT milestones have been met and passed and they have made the recommendation of home with home care for this patient and treating providers agree with this care path. The patient will be discharged home with appropriate medications, instructions and follow-up information and in stable condition. Patient Condition at Discharge: Good Plan - Discharge Summary Discharge Rx Participant: No New Discharge Prescriptions: New HYDROcodone/APAP 10-325MG [Neffs 10-325] 1 tab PO Q4-6H PRN #42 tab PRN Reason: Pain Sennosides/Docusate Sodium [Senna Plus 8.6-50 mg Tablet] 1 each PO DAILY PRN #20 tablet PRN Reason: Constipation Clindamycin [Cleocin] 150 mg PO Q6H 5 Days #20 cap Gabapentin 300 mg PO TID #90 cap tiZANidine [Zanaflex] 4 mg PO BID PRN #40 tab PRN Reason: Muscle Spasm No Action Budesonide/Formoterol Fumarate [Symbicort 160-4.5 Mcg Inhaler] 2 puff INHALATION BID Cholecalciferol [Vitamin D3 (25 Mcg = 1000 Iu)] 25 mcg PO DAILY Ascorbic Acid [Vitamin C] 500 mg PO DAILY Atorvastatin [Lipitor] 40 mg PO HS Ibuprofen 600 mg PO BID Albuterol Nebulized (Conc) [Ventolin Nebulized (Conc)] 2.5 mg INHALATION Q6H PRN PRN Reason: sob Albuterol Inhaler [Ventolin Hfa Inhaler] 1 - 2 puff INHALATION Q6H PRN PRN Reason: sob Albuterol Sulfate [Proair Respiclick] 1 puff INHALATION Q6H PRN PRN Reason: Dyspnea HYDROcodone/APAP 7.5-325MG [Neffs 7.5] 1 each PO Q6HR PRN PRN Reason: Pain tiZANidine [Zanaflex] 4 mg PO BID Gabapentin 300 mg PO TID Discharge Medication List Albuterol Inhaler [Ventolin Hfa Inhaler] 1 - 2 puff INHALATION Q6H PRN 04/04/22 [History] Albuterol Nebulized (Conc) [Ventolin Nebulized (Conc)] 2.5 mg INHALATION Q6H PRN 04/04/22 [History] Budesonide/Formoterol Fumarate [Symbicort 160-4.5 Mcg Inhaler] 2 puff INHALATION BID 04/04/22 [History] Albuterol Sulfate [Proair Respiclick] 1 puff INHALATION Q6H PRN 09/27/22 [History] Ascorbic Acid [Vitamin C] 500 mg PO DAILY 09/27/22 [History] Atorvastatin [Lipitor] 40 mg PO HS 09/27/22 [History] Cholecalciferol [Vitamin D3 (25 Mcg = 1000 Iu)] 25 mcg PO DAILY 09/27/22 [History] Gabapentin 300 mg PO TID 09/27/22 [History] HYDROcodone/APAP 7.5-325MG [Neffs 7.5] 1 each PO Q6HR PRN 09/27/22 [History] Ibuprofen 600 mg PO BID 09/27/22 [History] tiZANidine [Zanaflex] 4 mg PO BID 09/27/22 [History] Clindamycin [Cleocin] 150 mg PO Q6H 5 Days #20 cap 10/09/22 [Rx] Gabapentin 300 mg PO TID #90 cap 10/09/22 [Rx] HYDROcodone/APAP 10-325MG [Neffs 10-325] 1 tab PO Q4-6H PRN #42 tab 10/09/22 [Rx] Sennosides/Docusate Sodium [Senna Plus 8.6-50 mg Tablet] 1 each PO DAILY PRN #20 tablet 10/09/22 [Rx] tiZANidine [Zanaflex] 4 mg PO BID PRN #40 tab 10/09/22 [Rx] Follow up Appointment(s)/Referral(s): [facility], [NON-STAFF] - ([facility] will call you to arrange a visit) Rock Clemens MD [Primary Care Provider] - 1 Week (Office closed at time of discharge. Please call for appointment.) Frantz Loza DO [Doctor of Osteopathic Medicine] - 2 Weeks (Office closed at time of discharge. Please call for appointment.) Patient Instructions/Handouts: Posterior Lumbar Interbody Fusion (DC) Activity/Diet/Wound Care/Special Instructions: Spine Discharge and Recovery Instructions Date of Surgery: 10/04/2022 Diagnosis: lumbar spondylosis with stenosis Procedure: Revision T10 to pelvis decompression and fusion Medications: See medication list All medication refills should be obtained through your primary care doctor or your clinic spine surgeon. Please discuss prescription refills at your follow up appointment. Do not call the hospital for medication refills. Dressing: Leave your dressing in place for a total of 5 days post operatively. Then you may remove your dressing and leave open to air. Keep the area clean and if not able to keep area clean, then cover with sterile gauze and tape. Showering: You may shower 3 days after your procedure allowing soap and water to run over incision. Do not scrub. Do not soak. Blot dry. Follow up: Please confirm a follow up appointment with your surgeon 3 weeks post operatively. Please make an appointment to follow up with your PCP in 1-2 weeks after surgery for evaluation 3 phase, 3-week plan POST OP WEEKS 1-3 1. Lifting/carrying/pushing/pulling limited to less than 5 pounds. 2. Do not sit for longer than 15 minutes at one time. Get up and walk around. Prolonged sitting is NOT advised. If you lay down, see if you can tolerate laying down on you front (belly side) 3. Walk for periods of 15 minutes = 1 mile but no longer; do it multiple times times each day. 4. Ice your low back after activity. POST OP WEEKS 3-6 1. Lifting limited to less than 20 pounds. 2. Do not sit for longer than 30 minutes at a time. Frequently change positions. Use a sit-to stand workstation or take frequent breaks from sitting if you have returned to work. 3. Walk for 30 minutes each day. If possible, do these three or more times a day POST OP WEEKS 6+ At your 6-week appointment we will give you a physical therapy referral to focus on a core stabilization and strengthening program. You should also work on leg & buttock strengthening, hamstring & quadriceps stretching, and continue a low impact aerobic activity program such as swimming, walking, or riding a stationary bicycle. During the initial 6 weeks after your surgery, you are at the highest risk of re-injuring your spine. You should generally avoid BLTs (bending, lifting and twisting combination motions) and follow the above guidelines to reduce the chance of reinjury. You can anticipate post op appointments in our office at approximately 3 weeks and 6 weeks after your surgery. INCISION CARE: If your incision is not draining you do NOT need to cover it with a dressing. Keep your incision clean, dry and intact. In most cases, we apply skin glue, jose luis or sutures to the incision at the time of surgery. This will be like a crust or have the appearance of a scab and will fall off in time on its own. The stitches or jose luis need to be removed at 3 weeks post op appointment. You may begin to shower 3 days after surgery (this allows the glue to carrington well). However, please avoid scrubbing the incision site or peeling off any of the skin glue. This will ensure optimal healing of your incision. Also, during this time avoid soaking the incision area in water - this includes swimming pools, hot tubs or baths. No ointments, lotions or oils on the incision until your surgeon allows. Leave jose luis, sutures or glue in place. Neurological dysfunction that comes on suddenly can also be a sign of a stroke. Below some common symptoms of a stroke are listed: B - balance difficulty such as sudden onset walking or leaning to one side - NEW E - eye problem such as sudden double vision or trouble seeing on one side - NEW F - Facial weakness or numbness on one side - NEW A - Arm or leg weakness or numbness on one side - NEW S - Slurred speech or difficulty with word finding - NEW T - Time is BRAIN! Call 911 as soon as you recognize these symptoms Diet: Consume a regular diet rich in vegetables and lean protein such as chicken or fish. You should consume in a ratio of approximately 20% fats|40% carbohydrates|40%protein. Vegetables, sweet potatoes, brown rice or quinoa are examples of good carbohydrates. Chips, white bread, cookies and sweets/sugar are examples of bad carbohydrates. Limit your bad carbs, go wild with good carbs. "Life's Simple 7" Guidelines as per [place] [employer] These will help you reclaim your life after surgery and furnace helper in your recovery, keeping in mind your restrictions. (1) Get Active. Physical activity can help people lose weight, control high blood pressure and cholesterol, feel emotionally better, and sleep better. (2) Control Cholesterol. Avoid a diet high in saturated fat, trans fat, & cholesterol. Limit whole milk & cream, ice cream, butter, egg yolks, processed meats (like sausage and hot dogs), and fatty meats. Choose healthy foods that are low in saturated fat, trans fat and cholesterol which include: Fruits and vegetables, fiber rich grain products (like whole grain pasta and brown rice), lean meat such as chicken, fish, nuts, seeds, and legumes. (3) Eat Better. Eat small portions. Shop at the grocery with a list and do not stray from it. Tips for a healthy diet include: Limit sodium intake to less than 1500mg daily, avoid prepackaged, processed, and fast foods, choose a diet rich in fruits, vegetables, and whole grain, high fiber foods, and limit saturated & cholesterol in your diet. (4) Manage Blood Pressure. If you have high blood pressure, you should have a cuff at home so that you can check your blood pressure regularly. Be sure you have a good cuff. An arm one is generally better than a wrist one. Bring the cuff to a doctor's appointment to validate that the measurements that your cuff are taking are accurate. Take your blood pressure twice daily when you are sitting down and relaxing. Record the numbers in a log and bring this log with you to your doctors' appointments. (5) Lose Weight if your BMI is above 25. A healthy BMI is between 19-25. To calculate Your BMI, you may use a Standard BMI Calculator on the NIH BMI website: <www.nhlbi.nih.gov/guidelines/obesity/BMI/bmicalc.htm>. Weigh oneself daily. If you are overweight, set a goal to lose weight. A pound a week loss if needed is a good target. (6) Reduce Blood Sugar. Limit foods and liquids with "added sugars." (Added sugars include sucrose, fructose, glucose, maltose, dextrose, high fructose corn syrup, corn syrup, concentrated fruit juice and honey). (7) Stop Smoking. If you smoke, quitting smoking is one of the best things that you can do for your health. Smoking increases your risk of heart attack, stroke, and peripheral vascular disease, which is a build-up of plaque in your arteries. Please discard all the cigarettes and lighters in your house. Have a plan for what you will do when you have the urge to smoke. Direct and second- hand smoke shortens your life as well as the lives of your family, friends and others around you. For your health and the health of those around you, please consider quitting! Proper Bending Body Mechanics: Maintain a wide stance with one foot slightly in front of the other. Keep your back straight. Bend utilizing the strength in your hips and knees. Do not bend at the waist. Maintain the lifted object at your waist-level close to your body. Avoid lifting weight that causes immediately pain or pain anywhere in the body afterwards. Smoking/Nicotine If there was ever one thing that you could do to increase your overall health, decrease your risk of cardiovascular problems by about 39% the second you make the choice, it is to STOP SMOKING. Your body's most instant gratification is the second you stop smoking. We have all heard the studies, read the articles but it is true, smoking is extremely bad for your overall health, and moreover it is detrimental to your bone health. Nicotine, IN ANY FORM, kills bone cells, prevents your body from healing fractures, and significantly prolongs healing after surgery. In spine surgery specifically, it increases your risk of not healing your bones to create a fusion and increases your risk of having a revision surgery due to this up to 60%. I know it is hard. I know it feels impossible. But there are ways. Take c ontrol of your life. We are here to help you through it. And when you are ready, ask us and we can direct you to help if you desire. Use the START Plan to Quit Smoking (please visit the Helpguide.org website listed below for more information): S = Set a quit date. Choose a date within the next 2 weeks, so you have enough time to prepare without losing your motivation to quit. If you mainly smoke at work, quit on the weekend, so you have a few days to adjust to the change. T = Tell family, friends, and co-workers that you plan to quit. Let your friends and family in on your plan to quit smoking and tell them you need their support and encouragement to stop. Look for a quit carrie who wants to stop smoking as well. You can help each other get through the rough times. A = Anticipate and plan for the challenges you'll face while quitting. Most people who begin smoking again do so within the first 3 months. You can help yourself make it through by preparing ahead for common challenges, such as nicotine withdrawal and cigarette cravings. R = Remove cigarettes and other tobacco products from your home, car, and work. Throw away all your cigarettes (no emergency pack!), lighters, ashtrays, and matches. Wash your clothes and freshen up anything that smells like smoke. Shampoo your car, clean your drapes and carpet, and steam your furniture. T = Talk to your doctor about getting help to quit. Your doctor can prescribe medication to help with withdrawal and suggest other alternatives. If you can't see a doctor, you can get many products over the counter at your local pharmacy or grocery store, including the nicotine patch, nicotine lozenges, and nicotine gum. Resources for Quitting Smoking: <https://www.[place].gov/documents/[facility]/Qu it_Tobacco_Resources_for_patients_313480_7.pdf> Supplementation: Take recommended dosages of Vitamin D and Calcium to help fortify your bones and help them to heal. See your health maintenance packet for dosages and recommended levels. DVT/VTE prophylaxis: You will be given compression stockings from the hospital. Wear these daily for the first two weeks after surgery. You may take them off at night. You may be prescribed a medication to help thin your blood. Take this as directed. If you are not prescribed this medication, early and frequent ambulation has been shown to be the best prophylaxis to deep vein thrombosis and sequelae related to this event. Discharge Disposition: HOME WITH HOME HEALTH SERVICES
[2022-10-09] MEDS: IPRATROPIUM-ALBUTEROL 3 ML NEB INHALATION SCH (10:10)
[2022-10-09] MEDS: SYMBICORT 160-4.5 MCG INHALER INHALATION SCH (10:10)
--- NOTE | 2022-10-09 12:03 | P.PN ---
Subjective Progress Note Date: 10/09/22 I'm seeing this patient in new consultation today 10/05/2022 in regard to ICU management post T10 to pelvis decompression and fusion. Patient is a 72-year-old white female with past medical history significant for lumbar spondylosis, previous L4 to L5 decompression and fusion, COPD, chronic oxygen dependence at night with 2 L nasal cannula, current 31-bkss-wjrj smoker. Patient was brought in yesterday for an elective T10 to pelvis decompression and fusion with Dr. Loza. Patient was extubated to BiPAP in recovery. Apparently, the patient was hypoventilatory and had poor tidal volumes. Most recent ABG shows a pO2 of 158, pCO2 of 50, pH of 7.32. The patient was also hypotensive postoperatively, and was given 1 unit PRBC. Phenylephrine was temporarily use for blood pressure support. Patient was transferred to the intensive care unit. Patient is currently resting in bed, on 4 L nasal cannula, in no acute distress. She is alert, oriented, and responds to questions appropriately. Her BiPAP is on standby. She is able to move all extremities equally, and no focal neurological deficits were noted. Denies saddle anesthesia, bowel or bladder incontinence. Postoperative chest x-ray showed chronic changes without evidence of acute cardiopulmonary disease. There was a right IJ central venous triple-lumen catheter with the distal tip overlying the superior vena cava. There are 2 Hemovacs draining serosanguineous output, with a total of 150 ML's output since surgery. Most recent CBC shows a WBC count of 7.7, hemoglobin 8.2, hematocrit 26.3, platelets 200,000. Patient's BMP was essentially within normal limits. Vital signs are stable. Reevaluated today on 10/06/2022, patient remains in the ICU as an overflow, she is sitting in a bedside chair, doing well, on 3 L nasal cannula. Patient has some postoperative pain, otherwise she is asymptomatic. Denies any cough wheezing or shortness of breath. WBC count today 17.1 hemoglobin is 8.0. Basic metabolic profile is normal, renal profile is normal thoracolumbar spine x-rays done yesterday showed postsurgical changes without evidence of hardware failure spinal canal and neural foramen appeared patent. Patient is now on overflow in the ICU, and I plan to schedule the patient to a surgical floor Reevaluated today on 09/29/2022, patient remains in the ICU as an overflow. Sitting up in chair at bedside, pain seems to be relatively controlled. Her surgical dressing of thoracolumbar spine noted to be clean and dry as noted by surgery. Upper Hemovac remains intact and had an output of 120 ML overnight. Patient is compliant with her incentive spirometer. No major issues in the last 24 hours. She is on 3 L nasal cannula, O2 saturations 98% labs today showed WBC count of 12.5 hemoglobin is 7.7, her electrolytes are normal renal profile is normal. The patient is seen today 10/08/2022 in follow-up on the regular medical floor. She is currently sitting up at the bedside. Awake and alert in no acute distress. No shortness of breath, cough or congestion. Maintaining good O2 saturations in the 90s on room air. No IV fluids. She is working well with the incentive spirometer. Remains on bronchodilators. Remains on IV Solu-Medrol. She is still having a significant amount of drainage from her Bj-Hanley Hemovac from her surgical site. White count 8.9. Hemoglobin 7.9. Platelets 320. Sodium 137. Potassium 2.9. Bicarb 30. BUN 13. Creatinine 0.39. The patient is seen today 10/09/2022 in follow-up on the regular medical floor. She is currently up ambulating in her room. No shortness of breath, cough or congestion. Maintaining O2 saturations in the upper 90s on room air. Afebrile. Hemodynamically stable. No significant neck or spine pain. Her Hemovac was removed today. White count 9.7. Hemoglobin 7.9. Platelets 308. Sodium 138. Potassium 3.7. Bicarb 32. BUN 8. Creatinine 0.40. Objective - Vital Signs Vital signs: Vital Signs Temp 98.8 F 10/09/22 08:10 Pulse 95 10/09/22 08:10 Resp 15 10/09/22 08:10 BP 130/64 10/09/22 08:10 Pulse Ox 99 10/09/22 08:10 FiO2 4 10/05/22 00:00 Intake & Output 10/08/22 10/09/22 10/09/22 18:59 06:59 18:59 Output Total 400 90 Balance -400 -90 Output: Drainage 100 90 Lower Back 100 90 Urine 300 Other: # Voids 3 ABP, PAP, CO, CI - Last Documented Arterial Blood Pressure 118/56 - Exam GENERAL EXAM: Alert, pleasant 72-year-old female, ambulating in her room, comfortable in no apparent distress. HEAD: Normocephalic. EYES: Normal reaction of pupils, equal size. NOSE: Clear with pink turbinates. THROAT: No erythema or exudates. NECK: No masses, no JVD. CHEST: No chest wall deformity. LUNGS: Equal air entry with no crackles, wheeze, rhonchi or dullness. CVS: S1 and S2 normal with no audible murmur, regular rhythm. ABDOMEN: No hepatosplenomegaly, normal bowel sounds, no guarding or rigidity. SPINE: Surgical site of the thoracic and lumbar spine is clean and dry. Hemovac removed. SKIN: No rashes CENTRAL NERVOUS SYSTEM: No focal deficits, tone is normal in all 4 extremities. EXTREMITIES: There is no peripheral edema. No clubbing, no cyanosis. Peripheral pulses are intact. - Labs CBC & Chem 7: 10/09/22 05:53 10/09/22 05:53 Labs: Abnormal Lab Results - Last 24 Hours (Table) 10/09/22 10/09/22 Range/Units 05:53 05:53 RBC 2.50 L (3.80-5.40) m/uL Hgb 7.9 L (11.4-16.0) gm/dL Hct 24.9 L (34.0-46.0) % RDW 17.3 H (11.5-15.5) % Carbon Dioxide 32 H (22-30) mmol/L Creatinine 0.40 L (0.52-1.04) mg/dL Calcium 8.3 L (8.4-10.2) mg/dL Assessment and Plan Assessment: Postoperative day #5, elective T10 to pelvis decompression and fusion. This was a revision from a previous L4 to L5 decompression and fusion back in 2014. Acute on chronic hypoxic and hypercapnic respiratory failure. Patient did require BiPAP postoperatively, and is currently on 4 L nasal cannula. Patient does normally utilize 2 L/m nasal cannula at night. Postoperative hypotension, this is most likely multifactorial, related to anest hetic and pain medication given in the OR, also related to hypovolemia, this is expected. And has resolved Acute blood loss anemia, status post transfusion of 1 unit PRBC Acute COPD exacerbation, presently under control. Lumbar spondylosis and radiculopathy Chronic nicotine dependence Hyperlipidemia Plan: The patient was seen and evaluated Medications and labs reviewed Currently stable and on room air Cleared for discharge today Continue her home pulmonary medications I have personally seen and examined the patient, performed the documentation and the assessment and plan as written. Number of minutes spent on the visit: 10.
--- NOTE | 2022-10-10 18:20 | P.OP ---
Date of Procedure: 10/04/22 Preoperative Diagnosis: 1. 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 Grade 1 retrolisthesis L2-L3 5. Status post L4-L5 decompression and fusion 6. Right lower extremity radiculopathy 7. lower extremity weakness 8. neurogenic claudication 9. low back pain 10. Complex medical patient Postoperative Diagnosis: 1. 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 Grade 1 retrolisthesis L2-L3 5. Status post L4-L5 decompression and fusion 6. Right lower extremity radiculopathy 7. lower extremity weakness 8. neurogenic claudication 9. low back pain 10 Complex medical patient Procedure(s) Performed: 1. L2-3 intradiscal osteotomy for deformity correction 3 column () 2. Open reduction and internal fixation of T12 fracture with alignment reduction () 3. L2-3, L3-4, L5-S1 posteriolateral and interbody fusion (70091, 85324m2) 4. T10-L2 with revision L4-5 posteriolateral instrumented fusion (64219, [id number]) 5. L1-S1 Bilateral laminectomy, complete facetectomy and foraminotomy beyond that needed for cage placement [place] [address], [address] [place] these will get denied, so we are asked to use [04254, 11853a3] even though 72743/8 describes what we did better) 6. Segmental instrumentation [id number] (14456) 7. Attachment of the caudal end of long segment to pelvis (92778) 8. Insertion of interbody devices L2-3, L3-4, L5-S1 ([id number]) 9. Removal of hardware L4-5 (61659) 10. Exploration of fusion L4-5 (26228) 11. Use of [employer] Navigation for screw placement (26309) Use of IONM all screws testing >16 mA Implants: -Globus Creo nubia and screw system -Mirabus expandable cage medium x3 -MagnatOs, Arthocell, ventris bio, Autograft, iFactor -x2 crosslinks Anesthesia: GETA Surgeon: Frantz Loza Community Outreach Director #1: Cody Ambrocio (Was present and assisted with all aspects of the case from positioning to closure.) Estimated Blood Loss (ml): 900 IV fluids (ml): 2,600 Urine output (ml): 450 Pathology: none sent Condition: stable Disposition: PACU Indications for Procedure: Ms. Woodard is presenting for evaluation of low back pain. It was my pleasure to have seen and examined Ms. Woodard. In our visit today we have had a chance to go over subjective complaints, physical examination findings and treatments including the natural course history without intervention and various interventional options. The patients imaging demonstrates: XRay taken on 01/11/22 of Lumbar Spine [facility] Pel[facility] 5v [facility]: This demonstrates T12 VCF that is 40% PRATIMA with 25 deg kyphosis, There is L2-3 and L3- 4 lateral listhesis due to differential disc collapse causing scoliotic curvature. There is Spondylolisthesis of these lvels as well Grade I anterior. There is Retrolisthesis noted of L2-3 causing b/l foraminal stenois as well as likely central stenosis. There are post surgicla changes at L4-5 with decompression and fusion construct in place. There is possible pseudoarthrosis at this level. On physical exam, Ms. Woodard demonstrates: She Continues to report a sharp towel diffuse lumbar pain that radiates into her right lower extremity, associated without numbness and tingling. Her symptoms continue to be exacerbated with standing, sitting, walking and bending. MRI 01/31/[address] [facility]: This demonstates severe spondylotic changes from T12-S1 with old T12 VCF 50% with 30 deg kyphosis noted. There is severe disc collapse of L1-S1 with central and foraminal stenosis. There is multilevel degenerative spondylolisthesis noted from L2-3, L3-4 and L4-5 all grade I in nature and mobile on F/E and partially reduced on these supine films. There are no acute lesions or fractures noted. There is flattened LL due to the collapse and degenerative scoliotic features. PI is mismatched >10 deg. There are modic endplate change snoted as well. NO lesions. I have explained to the patient that as their condition progresses it will cause further neurological deficits and eventual paralysis. Based on the patients imaging, physical exam, and the rapid progression and disabling nature of their symptoms, at this time I recommend surgery in the form of a: lumbar T10- Pelvis decompression and fusion. I discussed the risk and benefits of this procedure at length with Ms. Woodard. The patient agreed to considered pursuing the procedure abovementioned. Prior to surgery, she should follow up with her PCP (Cardio, ID, IM etc) for clearance. Questions were invited and answered, and the patient wishes to proceed as outlined below. Currently, I am recommendin. lumbar T10- Pelvis revision decompression and fusion Description of Procedure: [id number] revision decompression and fusion with deformity correction and fracture fixation [id number] Decompression and fusion The patient was seen and examined in the preoperative area. All preoperative protocols were followed. Informed consent was obtained, risks and benefits of the procedure were discussed at length. Risks including bleeding infection damage to the surrounding tissue and risk of re-operation were discussed with the patient. Risk of anesthesia up to and including was discussed with the patient. These are outlined in the risk review. They were willing to accept these risks and all the risks of surgery. The patient was given a weight-based dose of antibiotics in the form of 3 g Ancef. The patient was seen and evaluated by the anesthesia team who deemed them fit for surgery. The site was marked, the patient was willing to proceed with the procedure. The patient was transferred to the operative suite by the Department of anesthesia. They were then drifted off to sleep by the department anesthesia and GETA was performed. The patient tolerated this well. Wetzel catheter was placed by nursing staff, a-traumatically. Once confirmation of lines and ventilation the patient was transferred to a prone Trios spine table very carefully. The head was secured and stable. Xray confirmed alignment. All bony prominences including wrists, elbows, axilla, chest, hips, and thighs, and feet were padded very well. Special attention was paid to the genitalia, and these were padded accordingly. SCDs were placed on bilateral lower extremities and were connected. Arms were well padded and placed at 90/90 up and out and well padded. Safety strap and tape placed on the patient. Once in position, again we confirmed good ventilation capabilities and that lines were running appropriately. The patients lumbosacral pelvic was then exposed. Hair was removed for incision. 1010s were placed outlining the incision site. Standard alcohol was used to clean the incision site and allowed to dry. C-arm was used to bio-link the patient and confirm level for incision which was marked with a skin marker. Operative briefing was performed with all teams and everyone in agreement to proceed. The patient was then prepped and draped in a normal sterile fashion. Timeout was then performed, and all parties agreed with the procedure to be performed. Midline skin incision was then made over the previously bookmarked area and dissection taken down to the lumbosacral fascia which was identified and cleaned with a coats. Once midline was identified, fasciotomy was made over the SP of [id number]. Subperiosteal dissection was then taken down over the lamina and facet joints and TPs were exposed and trough made posterolateral. TPs were then decorticated L1-S1 and sacral ala with a high speed adan for lateral fusion. Dissection was taken out over the sacrum to the pelvis. SI joint identified and modified Underwood starting point for pelvic screws identified as well however S2Ai approach matched better with pt anatomy and so this was used. Retractors placed. Wound was irrigated and lateral image with penfield 4 placed at the pars of L4 confirmed levels for operation.We then explored the previous hardware at L4-5 and removed it. The L5 screws were loose b/l. Fusion was exp lored. There was scarring posteriolateral but poor bone formation. The scar was removed and TPs were identified and decorticated. Screw paths were probed and were safe. Area was irrigaed and debrided thoroughly. We then proceeded with placing screws. SP clamp was then placed for the [employer] navigation tracker and secured at L3. for the first set of screws. The wound was then filled with NSS and Z-drape placed. A 3D Zhiem spin was then obtained and registered. Once confirmation of accuracy screws were then placed from T10-L2 using navigation. Navigated high speed adan was used to make a ferry pilot hole followed by a navigated awl-tap passed through the pedicle into the body. A ball tip probe then confirmed within the pedicle. Globus Screws then measured and placed using a navigated screwdriver. After screws were placed from T10-L2 the tracker was replaced at S1 and a second 3D Zhiem spin was then obtained and registered. Once confirmation of accuracy screws were then placed from L3-Pelvis using navigation. AP image confirmed safe placement of screws. Lateral images as well as navigation were then used to place bilateral pelvic screws. Starting point selected just Medial to the SI joint and S2 pseudo facet. Lateral image taken and adan used to make the ferry pilot hole. Gearshift then used to pass into the pelvis under lateral imaging just above the sciatic notch in an S2Ai approach. 30 deg/30deg iliac oblique then taken to confirm within the teardrop and ball tip probe used to probe good bone. Screw was then measured and selected and placed under lateral imaging. This was repeated on the contralateral side. Screws were then visualized and were safe. Screws were then tested, and reliably tested screws tested above 17 mA. The wound was irrigated and attention was turned to decompression, correction and interbody fusion. Starting at L5-S1, bilateral laminectomy, complete facetectomy and foraminotomies were performed using high speed bur, Kerrison rongure. There was exuberant bone formation, osteophytes and scar tissue surrounding these joints as well as the dura. Once exposed the neural elements were protected and Osteotome was used to make osteotomy in L5 and S1 and for complete disc removal. Sequential shaving was then done until bleeding endplates encountered. Disc removed and bear claws used. A cage was then selected based on shaving and trials. Bleeding endplates were encountered and cartilage removed. Autograft, allograft, iFactor were then placed anterior to the cage. The cage was then impacted into place under lateral imaging while protecting neural elements. The cage was then expanded into position and showed good lift and correction. Jainism of lordosis and height achieved. Meticulous hemostasis then performed. Cage was backfilled with DBM and the area irrigated. We then proceeded to L4-5. At L4-5, we again inspected the area and performed a complete decopmression in this area. There was bony void on the right side from previous cage placement, however this was minimal and had likely grown over. Bilateral laminectomy, complete facetectomy and foraminotomy performed. Cage was already and place and so just posteriolateral fusion will be done at this level. We then proceeded to L3-4. At L3-4 again bilateral laminectomy, complete facetectomy and foraminotomy were performed along with complete discectomy. This level was very unstable. The elements were then protected, and disc space accessed. Sequential shaving performed until desired height and lordosis. Cage selected, and graft placed anterior to the cage within the disc space. Cage was then placed under lateral image, expanded and had good height, lordosis and deformity correction. The wound was irrigated, and meticulous hemostasis performed once again.We then proceeded to L2-3 level. At L2-3 deformity correction was performed. Bilateral laminectomy, complete facetectomy and foraminotomy were performed. Neural elements were mobilized and then protected, and disc space accessed. Intradiscal osteotomy was done with osteotome and raptor for deformity correction 3 column. Passing this into the anterior 2/3 of the vertebral body loosened this level and allowed for the lateral listhesis to be reduced. Sequential shaving performed until desired height and lordosis. Complete discectomy performed with cartilage removal. Cage selected, and Allograft, Auto graft, iFactor placed anterior to the cage within the disc space. Cage was then placed under lateral image, expanded and had good height, lordosis and deformity correction. The wound was irrigated, and meticulous hemostasis performed once again. AP imaging confirmed good placement of all cages and good reduction and coronal balance restored. Sagittal balance was also improved and once rods placed reduced even more with the reduction of the T12 fracture. Screws all in good position. Attention was then drawn to nubia placement and further reduction. Rods were selected, measured, cut and bent to appropriate lordosis and kyphosis. They were then secured into pelvic screws b/l. Sequential reduction then done into each screw and set screw placed. Set screws were then final tightened and lateral image showed good lordosis reduction with sagittal balance restored to near normal. Once rods were secured, cross links were selected and placed and final tightened. The wound was then irrigated with 3L Ancef irrigation, 3L gentamicin irrigation and 3L NSS. Surgicel was then placed on the dura, which was inspected and had no injury. Then, in the posterolateral gutter was placed, MagnatOs, Autograft and allograft. This was impacted into position and surgical placed over it. 2g Vanco powder was then placed deep in the wound. Two deep, subfascial drains were placed and secured with a stitch. We then proceeded with layered closure. #1 PDS placed in the deep fascia followed by a running unidirectional 0 stratafix. 0 Vicryl placed in the deep subq, 2-0 placed in the superficial subq and jose luis placed in the skin. The wound edges approximated very well. The wound was then cleaned with ETOH and dressed with optifoam dressing, drain sponges and tegaderms. Drains sewed into position. IONM confirmed no changes. The patient was then transferred off the [facility] spine table to their hospital bed a-traumatically. Drains continued to hold suction. The patient was then extubated and transferred to the ICU in stable condition having tolerated the procedure with no complications.
== END 2022-10-09 10:38 | disposition home health service (06) | DRG 459 ==
LOC: 2ORMAIN 05:35 → 2SICU 15:15 → 4SSUR 10-07 18:38
PROVIDERS: ADMIT Orthopaedic Surgery; ATTEND Orthopaedic Surgery
PROC: 3E033XZ Introduction of Vasopressor into Peripheral Vein, Percutaneous Approach (ICD-10-PCS; 2022-10-04)
PROC: 5A09358 Assistance with Respiratory Ventilation, Less than 24 Consecutive Hours, Intermittent Positive Airway Pressure (ICD-10-PCS; 2022-10-04)
PROC: 30233N1 Transfusion of Nonautologous Red Blood Cells into Peripheral Vein, Percutaneous Approach (ICD-10-PCS; 2022-10-04)
PROC: 0SG107J Fusion of 2 or more Lumbar Vertebral Joints with Autologous Tissue Substitute, Posterior Approach, Anterior Column, Open Approach (ICD-10-PCS; 2022-10-04)
PROC: 0PS404Z Reposition Thoracic Vertebra with Internal Fixation Device, Open Approach (ICD-10-PCS; 2022-10-04)
PROC: 0QS004Z Reposition Lumbar Vertebra with Internal Fixation Device, Open Approach (ICD-10-PCS; 2022-10-04)
PROC: 0SG10AJ Fusion of 2 or more Lumbar Vertebral Joints with Interbody Fusion Device, Posterior Approach, Anterior Column, Open Approach (ICD-10-PCS; 2022-10-04)
PROC: 01NB0ZZ Release Lumbar Nerve, Open Approach (ICD-10-PCS; 2022-10-04)
PROC: 01NR0ZZ Release Sacral Nerve, Open Approach (ICD-10-PCS; 2022-10-04)
PROC: 0SP00AZ Removal of Interbody Fusion Device from Lumbar Vertebral Joint, Open Approach (ICD-10-PCS; 2022-10-04)
PROC: 8E0WXBZ Computer Assisted Procedure of Trunk Region (ICD-10-PCS; 2022-10-04)
PROC: 5A09357 Assistance with Respiratory Ventilation, Less than 24 Consecutive Hours, Continuous Positive Airway Pressure (ICD-10-PCS; principal; 2022-10-04 07:30)
DX: M47.26 Other spondylosis with radiculopathy, lumbar region (principal); G93.41 Metabolic encephalopathy; J96.21 Acute and chronic respiratory failure with hypoxia; J96.22 Acute and chronic respiratory failure with hypercapnia; R57.9 Shock, unspecified; J44.1 Chronic obstructive pulmonary disease with (acute) exacerbation; M48.54XA Collapsed vertebra, not elsewhere classified, thoracic region, initial encounter for fracture; D62 Acute posthemorrhagic anemia; M48.56XA Collapsed vertebra, not elsewhere classified, lumbar region, initial encounter for fracture; M96.0 Pseudarthrosis after fusion or arthrodesis; E86.1 Hypovolemia; J44.9 Chronic obstructive pulmonary disease, unspecified; M43.16 Spondylolisthesis, lumbar region; G89.29 Other chronic pain; G47.8 Other sleep disorders; M41.9 Scoliosis, unspecified; M48.062 Spinal stenosis, lumbar region with neurogenic claudication; F17.210 Nicotine dependence, cigarettes, uncomplicated; E78.5 Hyperlipidemia, unspecified; T41.205A Adverse effect of unspecified general anesthetics, initial encounter; Z96.642 Presence of left artificial hip joint; Z99.81 Dependence on supplemental oxygen
CPT/HCPCS: 36600; 71045; 72100; 72128; 72131; 80048; 80053; 82805; 84132; 85025; 85027; 86850; 86891; 86900; 86901; 86920; 93306; 94640; 94660; 94760

== ENCOUNTER 2024-09-30 05:27 | Emergency (ER) | payer MEDICARE ==
[2024-09-30 05:35] VITALS: TEMP 98.6
--- NOTE | 2024-09-30 06:38 | ED ---
Back Pain HPI - General Chief Complaint: Back Pain/Injury Stated Complaint: Back Pain Time Seen by Provider: 09/30/24 06:00 Source: patient, family, EMS, RN notes reviewed Mode of arrival: EMS Limitations: no limitations - History of Present Illness Initial Comments: 74-year-old female presents emergency department complaint of severe back pain, rib pain. Patient states has been dealing with issues over a year with her PCP Dr. Clemens. Patient states that this pain is worse and unrelieved with her medications. Patient states she is on current Marathon she does note that she has severe COPD continues to smoke. Patient denies any chest pain but states pain wraps around from her back through her ribs to the front. She has no abdominal complaints no nausea vomit diarrhea constipation patient is very tearful secondary to pain. - Related Data Home Medications Medication Instructions Recorded Confirmed Albuterol Inhaler [Ventolin Hfa 1 - 2 puff INHALATION Q6H PRN 04/04/22 09/27/24 Inhaler] Albuterol Nebulized (Conc) 2.5 mg INHALATION Q6H PRN 04/04/22 09/27/24 [Ventolin Nebulized (Conc)] Budesonide/Formoterol Fumarate 2 puff INHALATION BID 04/04/22 09/27/24 [Symbicort 160-4.5 Mcg Inhaler] Albuterol Sulfate [Proair 1 puff INHALATION Q6H PRN 09/27/22 09/27/24 Respiclick] Ascorbic Acid [Vitamin C] 500 mg PO DAILY 09/27/22 09/27/24 Cholecalciferol [Vitamin D3 (25 25 mcg PO DAILY 09/27/22 09/27/24 Mcg = 1000 Iu)] HYDROcodone/APAP 7.5-325MG [Marathon 1 each PO Q6HR PRN 09/27/22 09/27/24 7.5] Ferrous Sulfate [Feosol] 325 mg PO DAILY 09/27/24 09/27/24 Montelukast [Singulair] 10 mg PO HS 09/27/24 09/27/24 Omeprazole 40 mg PO DAILY 09/27/24 09/27/24 Simvastatin [Zocor] 20 mg PO HS 09/27/24 09/27/24 Vitamin B Complex 1 each PO DAILY 04/18/25 04/18/25 tiZANidine HCL [Zanaflex] 4 mg PO DAILY 09/27/24 09/27/24 Previous Rx's Medication Instructions Recorded Gabapentin 300 mg PO TID #90 cap 10/09/22 Sennosides/Docusate Sodium [Senna 1 each PO DAILY PRN #20 tablet 10/09/22 Plus 8.6-50 mg Tablet] Allergies Allergy/AdvReac Type Severity Reaction Status Date / Time cephalexin monohydrate Allergy Rash/Hives Verified 09/30/24 05:35 [From Keflex] Sulfa (Sulfonamide Allergy Rash/Hives Verified 09/30/24 05:35 Antibiotics) nickel [Nickel] AdvReac Rash/Hives Verified 09/30/24 05:35 sulpher dixoide Allergy Rash/Hives Uncoded 09/30/24 05:35 metal AdvReac Rash/Hives Uncoded 09/30/24 05:35 Review of Systems ROS Statement: Those systems with pertinent positive or pertinent negative responses have been documented in the HPI. ROS Other: All systems not noted in ROS Statement are negative. Past Medical History Past Medical History: COPD, Hyperlipidemia, Hypertension Additional Past Medical History / Comment(s): arthritis, hx anemia, feels tight around abd. Back pain. History of Any Multi-Drug Resistant Organisms: None Reported Past Surgical History: Back Surgery, Cholecystectomy, Orthopedic Surgery Additional Past Surgical History / Comment(s): neck surgery, colonoscopy, L hip replacement Past Anesthesia/Blood Transfusion Reactions: Previous Problems w/ Anesthesia Additional Past Anesthesia/Blood Transfusion Reaction / Comment(s): States respiratory issues with her other surgeries. States stopped breathing with one of her back surgeries. Past Psychological History: No Psychological Hx Reported Smoking Status: Current every day smoker - Past Family History Mother Family Medical History: Cancer Additional Family Medical History / Comment(s): leukemia General Exam Limitations: no limitations General appearance: alert, in no apparent distress Head exam: Present: atraumatic, normocephalic, normal inspection Eye exam: Present: normal appearance, PERRL, EOMI. Absent: scleral icterus, conjunctival injection, periorbital swelling ENT exam: Present: normal exam, normal oropharynx, mucous membranes moist Neck exam: Present: normal inspection, full ROM. Absent: tenderness, meningismus, lymphadenopathy Respiratory exam: Present: normal lung sounds bilaterally, chest wall tenderness. Absent: respiratory distress, wheezes, rales, rhonchi, stridor Cardiovascular Exam: Present: regular rate, normal rhythm, normal heart sounds. Absent: systolic murmur, diastolic murmur, rubs, gallop, clicks GI/Abdominal exam: Present: soft, normal bowel sounds. Absent: distended, tenderness, guarding, rebound, rigid Extremities exam: Present: normal inspection, full ROM, normal capillary refill. Absent: tenderness, pedal edema, joint swelling, calf tenderness Back exam: Present: full ROM, tenderness, paraspinal tenderness. Absent: vertebral tenderness Neurological exam: Present: alert, oriented X3, CN II-XII intact, reflexes normal. Absent: motor sensory deficit Course Vital Signs 09/30/24 09/30/24 09/30/24 05:29 07:01 07:27 Temperature 98.6 F Pulse Rate 91 100 95 Respiratory 16 22 36 H Rate Blood Pressure 117/51 103/47 150/70 O2 Sat by Pulse 97 100 100 Oximetry 09/30/24 08:03 Temperature Pulse Rate Respiratory 36 H Rate Blood Pressure O2 Sat by Pulse Oximetry Medical Decision Making - Medical Decision Making Was pt. sent in by a medical professional or institution (, PA, INSURANCE PRODUCER, urgent care, hospital, or senior living...) When possible be specific @ -No Did you speak to anyone other than the patient for history (EMS, parent, family, police, friend...)? What history was obtained from this source @ -No Did you review nursing and triage notes (agree or disagree)? Why? @ -I reviewed and agree with nursing and triage notes Were old charts reviewed (outside hosp., previous admission, EMS record, old EKG, old radiological studies, urgent care reports/EKG's, senior living records)? Report findings @ -No old charts were reviewed Differential Diagnosis (chest pain, altered mental status, abdominal pain women, abdominal pain men, vaginal bleeding, weakness, fever, dyspnea, syncope, headache, dizziness, GI bleed, back pain, seizure, CVA, palpatations, mental health, musculoskeletal)? @ -Differential Back Pain: Strain, zoster, cauda equina syndrome, epidural abscess, vertebral o steomyelitis, discitis, fracture, subluxation, disc herniation, DJD, spinal stenosis, dissection, AAA, pancreatitis, peptic ulcer disease, pyelonephritis, kidney stone, this is not meant to be an all-inclusive list. EKG interpreted by me (3pts min.). @ -As above X-rays interpreted by me (1pt min.). @ -Chest x-ray shows COPD changes, no infiltrates CT interpreted by me (1pt min.). @ -[CT angio chest negative for PE no acute process old thoracic surgery U/S interpreted by me (1pt. min.). @ -None done What testing was considered but not performed or refused? (CT, X-rays, U/S, labs)? Why? @ -None What meds were considered but not given or refused? Why? @ -None Did you discuss the management of the patient with other professionals (professionals i.e. , PA, INSURANCE PRODUCER, lab, RT, psych nurse, social service worker, county program technician, teacher, delinquency prevention officer, case resource manager)? Give summary @ -No Was smoking cessation discussed for >3mins.? @ -No Was critical care preformed (if so, how long)? @ -No Were there social determinants of health that impacted care today? How? (Homelessness, low income, unemployed, alcoholism, drug addiction, transportation, low edu. Level, literacy, decrease access to med. care, [facility], rehab)? @ -No Was there de-escalation of care discussed even if they declined (Discuss DNR or withdrawal of care, Hospice)? DNR status @ -No What co-morbidities impacted this encounter? (DM, HTN, Smoking, COPD, CAD, Cancer, CVA, ARF, Chemo, Hep., AIDS, mental health diagnosis, sleep apnea, morbid obesity)? @ -COPD Was patient admitted / discharged? Hospital course, mention meds given and route, prescriptions, significant lab abnormalities, going to OR and other pertinent info. @ -Discharge patient presented for thoracic back pain, rib pain. Patient to have full workup given location of symptoms notes has been ongoing chronic issue symptoms are improved patient negative workup including labs EKG CT. Patient was discharged follow-up PCP. Undiagnosed new problem with uncertain prognosis? @ -No Drug Therapy requiring intensive monitoring for toxicity (Heparin, Nitro, Insulin, Cardizem)? @ -No Were any procedures done? @ -No Diagnosis/symptom? @ -Back pain Acute, or Chronic, or Acute on Chronic? @ -Acute Uncomplicated (without systemic symptoms) or Complicated (systemic symptoms)? @ -Complicated Side effects of treatment? @ -No Exacerbation, Progression, or Severe Exacerbation? @ -No Poses a threat to life or bodily function? How? (Chest pain, [place], [place], pneumonia, PE, COPD, DKA, ARF, appy, cholecystitis, CVA, Diverticulitis, Homicidal, Suicidal, threat to staff... and all critical care pts) @ -No - Lab Data Result diagrams: 09/30/24 06:50 09/30/24 06:50 Lab Results 09/30/24 09/30/24 09/30/24 Range/Units 06:50 06:50 06:50 WBC 14.08 H (4.50-10.00) 10*3/uL RBC 4.10 (4.10-5.20) 10*6/uL Hgb 12.8 (12.0-15.0) g/dL Hct 38.0 (37.2-46.3) % MCV 92.7 (80.0-97.0) fL MCH 31.2 (27.0-32.0) pg MCHC 33.7 (32.0-37.0) g/dL Plt Count 434 (140-440) 10*3/uL MPV 8.5 L (9.5-12.2) fL Immature Gran % (Auto) 0.7 % Neutrophils % 81.3 % Lymphocytes % 10.2 % Monocytes % 7.1 % Eosinophils % 0.4 % Basophils % 0.3 % Immature Gran # 0.10 H (0.00-0.04) 10*3/uL Neutrophils # 11.45 H (1.80-7.70) 10*3/uL Lymphocytes # 1.43 (0.90-5.00) 10*3/uL Monocytes # 1.00 (0.20-1.00) 10*3/uL Eosinophils # 0.06 (0.04-0.35) 10*3/uL Basophils # 0.04 (0.00-0.10) 10*3/uL PT 9.4 L (10.0-12.5) sec INR 0.8 (<1.2) APTT 20.4 L (22.0-30.0) sec D-Dimer 1.64 H (<0.60) mg/L FEU Sodium 131 L (137-145) mmol/L Potassium 3.7 (3.5-5.1) mmol/L Chloride 95 L (98-107) mmol/L Carbon Dioxide 33 H (22-30) mmol/L Anion Gap 3 mmol/L BUN 8 (7-17) mg/dL Creatinine 0.40 L (0.52-1.04) mg/dL Est GFR (CKD-EPI)AfAm >90 (>60 ml/min/1.73 sqM) Est GFR (CKD-EPI)NonAf >90 (>60 ml/min/1.73 sqM) Glucose 100 H (74-99) mg/dL Calcium 9.3 (8.4-10.2) mg/dL Magnesium 2.4 H (1.6-2.3) mg/dL Total Bilirubin 1.1 (0.2-1.3) mg/dL AST 24 (14-36) U/L ALT 35 H (4-34) U/L Alkaline Phosphatase 149 H (38-126) U/L Troponin I (0.000-0.034) ng/mL Total Protein 6.4 (6.3-8.2) g/dL Albumin 3.6 (3.5-5.0) g/dL / Range/Units 06:50 WBC (4.50-10.00) 10*3/uL RBC (4.10-5.20) 10*6/uL Hgb (12.0-15.0) g/dL Hct (37.2-46.3) % MCV (80.0-97.0) fL MCH (27.0-32.0) pg MCHC (32.0-37.0) g/dL Plt Count (140-440) 10*3/uL MPV (9.5-12.2) fL Immature Gran % (Auto) % Neutrophils % % Lymphocytes % % Monocytes % % Eosinophils % % Basophils % % Immature Gran # (0.00-0.04) 10*3/uL Neutrophils # (1.80-7.70) 10*3/uL Lymphocytes # (0.90-5.00) 10*3/uL Monocytes # (0.20-1.00) 10*3/uL Eosinophils # (0.04-0.35) 10*3/uL Basophils # (0.00-0.10) 10*3/uL PT (10.0-12.5) sec INR (<1.2) APTT (22.0-30.0) sec D-Dimer (<0.60) mg/L FEU Sodium (137-145) mmol/L Potassium (3.5-5.1) mmol/L Chloride (98-107) mmol/L Carbon Dioxide (22-30) mmol/L Anion Gap mmol/L BUN (7-17) mg/dL Creatinine (0.52-1.04) mg/dL Est GFR (CKD-EPI)AfAm (>60 ml/min/1.73 sqM) Est GFR (CKD-EPI)NonAf (>60 ml/min/1.73 sqM) Glucose (74-99) mg/dL Calcium (8.4-10.2) mg/dL Magnesium (1.6-2.3) mg/dL Total Bilirubin (0.2-1.3) mg/dL AST (14-36) U/L ALT (4-34) U/L Alkaline Phosphatase (38-126) U/L Troponin I <0.012 (0.000-0.034) ng/mL Total Protein (6.3-8.2) g/dL Albumin (3.5-5.0) g/dL - EKG Data -: EKG Interpreted by Or EKG Comments: EKG performed at 6: 45 sinus rhythm with a rate of 98 MN 150 QRS 80 QT/QTc 342/397 Disposition Clinical Impression: Back pain Disposition: HOME SELF-CARE Condition: Stable Instructions (If sedation given, give patient instructions): Back Pain (ED) Additional Instructions: Please return to the Emergency Department if symptoms worsen or any other concerns. Is patient prescribed a controlled substance at d/c from ED?: No Referrals: Rock Clemens MD [Primary Care Provider] - 1-2 days Time of Disposition: 09:28
[2024-09-30] MEDS: HYDROmorphone 0.5 MG/0.5 ML SYRINGE IVP STA ×2 (06:50→07:40)
[2024-09-30] MEDS: SODIUM CHLORIDE 0.9% 1,000 ML IV STA (06:51)
--- NOTE | 2024-09-30 07:02 | XR ---
EXAMINATION TYPE: XR chest 2V DATE OF EXAM: 09/30/2024 6:41 AM COMPARISON: Chest radiographs from 10/04/2022 TECHNIQUE: XR chest 2V Frontal and lateral views of the chest. CLINICAL INDICATION:Female, 74 years old with history of Chest Pain; FINDINGS: Lungs/Pleura: There is no evidence of pleural effusion, focal consolidation, or pneumothorax. Pulmonary vascularity: Unremarkable. Heart/mediastinum: Cardiomediastinal silhouette is unremarkable. Atherosclerotic calcifications are seen in the aorta. Musculoskeletal: Multiple level degenerative disc disease changes seen throughout the spine. Partial visualization of thoracolumbar spinal fusion changes. IMPRESSION: No acute cardiopulmonary disease/process. [facility], , 09/30/2024 7:00 AM
[2024-09-30 07:17] LABS: Basophils # (A) 0.04 10*3/uL (0.00-0.10); Basophils % (A) 0.3 %; Eosinophils # (A) 0.06 10*3/uL (0.04-0.35); Eosinophils % (A) 0.4 %; HGB 12.8 g/dL (12.0-15.0); Lymphocytes # (A) 1.43 10*3/uL (0.90-5.00); Lymphocytes % (A) 10.2 %; MCH 31.2 pg (27.0-32.0); MCHC 33.7 g/dL (32.0-37.0); MCV 92.7 fL (80.0-97.0); Mean Platelet Volume 8.5 fL (9.5-12.2); Monocytes % (A) 7.1 %; Neutrophils # (A) 11.45 10*3/uL (1.80-7.70); Neutrophils % (A) 81.3 %; Platelet Count 434 10*3/uL (140-440); RDW 12.4 % (11.5-14.5); WBC 14.08 10*3/uL (4.50-10.00)
[2024-09-30 07:20] LABS: ALT 35 U/L (4-34); AST 24 U/L (14-36); African American GFR (CKD) >90 (>60 ml/min/1.73 sqM); Albumin 3.6 g/dL (3.5-5.0); Alkaline Phosphatase 149 U/L (38-126); Anion Gap 3 mmol/L; Blood Urea Nitrogen 8 mg/dL (7-17); Calcium 9.3 mg/dL (8.4-10.2); Carbon Dioxide 33 mmol/L (22-30); Chloride 95 mmol/L (98-107); Glucose 100 mg/dL (74-99); Magnesium 2.4 mg/dL (1.6-2.3); Non-African American GFR(CKD) >90 (>60 ml/min/1.73 sqM); Potassium 3.7 mmol/L (3.5-5.1); Sodium 131 mmol/L (137-145); Total Bilirubin 1.1 mg/dL (0.2-1.3); Total Protein 6.4 g/dL (6.3-8.2)
[2024-09-30 07:40] LABS: INR 0.8 (<1.2); Partial Thromboplastin Time 20.4 sec (22.0-30.0); Prothrombin Time 9.4 sec (10.0-12.5)
[2024-09-30] MEDS: KETOROLAC 15 MG/ML 1 ML VIAL IVP STA (07:40)
--- NOTE | 2024-09-30 08:57 | CT ---
EXAMINATION TYPE: CT chest angio for PE CT DLP: 207.6 mGycm, Automated exposure control for dose reduction was used. DATE OF EXAM: 09/30/2024 8:49 AM COMPARISON: Chest radiograph from same day. CT thoracolumbar spine 10/05/2022, CT low-dose lung 01/13/20 CLINICAL INDICATION:Female, 74 years old with history of pain, sob; Pain, SOB TECHNIQUE/CONTRAST: CTA scan of the thorax is performed without and with IV Contrast, patient injected with 100 ml mL of Isovue 370, pulmonary embolism protocol. MIP images are created and reviewed. FINDINGS: Pulmonary Artery: There is no evidence for a filling defect within the pulmonary vasculature to sugge st acute pulmonary embolism. The pulmonary artery is of normal size. Lungs/Pleura: Incidental azygous fissure. No pleural effusion, pneumothorax, focal consolidation. No suspicious pulmonary nodule or mass. Airway: Large airways are patent. Heart: Size within normal limits.No pericardial effusion. No significant coronary artery calcificatio ns. Vasculature: No evidence of aortic aneurysm. Mild atherosclerotic calcification of the aorta and its branches. Mediastinum: No evidence of adenopathy. Musculoskeletal: No acute osseous abnormalities. Postsurgical changes from posterior fusion involving the thoracolumbar spine. Soft Tissues: Unremarkable. Lower neck: No significant findings. Upper Abdomen: No significant findings. IMPRESSION: No evidence of pulmonary embolism or acute thoracic process. [facility], , 09/30/2024 8:55 AM
[2024-09-30 09:47] VITALS: BP 145/70; PULSE 70; RESP 20
== END 2024-09-30 09:47 | disposition home or self-care (01) ==
LOC: EC 05:27
DX: M54.9 Dorsalgia, unspecified (principal); J44.9 Chronic obstructive pulmonary disease, unspecified; F17.200 Nicotine dependence, unspecified, uncomplicated; Z88.1 Allergy status to other antibiotic agents; Z91.048 Other nonmedicinal substance allergy status; Z88.8 Allergy status to other drugs, medicaments and biological substances
CPT/HCPCS: 36415; 93005; 85379; 80053; 83735; 84484; 85025; 85610; 85730; 71046; 71275; 99284; 96374; 96375; 96376; 96361; J1885; J1171; Q9967; 99285

== ENCOUNTER → 2024-10-01 | Outpatient (CLI) | payer MEDICARE ==
--- NOTE | 2024-10-01 14:40 | CT ---
EXAMINATION TYPE: CT thoracic spine wo con DATE OF EXAM: 10/01/2024 COMPARISON: 10/05/2022 CLINICAL INDICATION: Female, 74 years old with history of M54.6 PAIN THORACIC SPINE; PH[facility], Upper back pain. No injury. CT DLP: 513.7 mGycm Automated exposure control for dose reduction was used. FINDINGS: There are postsurgical changes of posterior metallic fusion from T10 through at least L2. On the prio r study effusion actually extends from T10 through S1. There has been interval development of a mild compression fracture of T6. The thoracic alignment on t he sagittal images remains normal. The disc spaces are well preserved. The paraspinal soft tissues are unremarkable. IMPRESSION: 1. STABLE FUSION FROM T10 THROUGH S1 DESCRIBED ABOVE. 2. INTERVAL DEVELOPMENT OF A MILD COMPRESSION FRACTURE OF T6 without retropulsion [facility], , 10/01/2024 2:38 PM
== END | disposition home or self-care (01) ==
LOC: RADCTMAIN 14:04
PROVIDERS: ATTEND Family Medicine
DX: S22.050A Wedge compression fracture of T5-T6 vertebra, initial encounter for closed fracture (principal); M43.24 Fusion of spine, thoracic region
CPT/HCPCS: 72128